=== PATIENT | male | born 1945 | race Caucasian/White ===

== ENCOUNTER → 2019-02-21 14:00 | Outpatient (BNVA) | payer MEDICARE, MEDICAID, SELFPAY | PROVIDERS: Family Provider Family Medicine; PCP Family Medicine; Visit Provider Nurse Practitioner | DX: F25.0 Schizoaffective disorder, bipolar type (principal); G24.01 Drug induced subacute dyskinesia | CPT/HCPCS: 99213 ==

== ENCOUNTER 2019-03-12 13:34 | Outpatient (CLI) | payer MEDICARE, MEDICAID, SELFPAY ==
--- NOTE | 2019-03-12 | XR_ITS ---
WS: [id number] LUMBAR SPINE: 3 VIEWS TECHNIQUE: AP, lateral and L5-S1 spot. HISTORY: BACK PAIN CHRONIC COMPARISON: None available. Lumbar vertebra are normally aligned. Moderate disc space narrowing at L5-S1. No fractures. Multilevel mild facet joint arthritis. SI joints are symmetric bilaterally. No soft tissue abnormalities. Mild atherosclerosis aorta. XR/XR lumbar spine min 4V [id number] IMPRESSION: 1. Multilevel mild lumbar spondylosis. 2. No fracture.
== END 2019-03-12 13:35 | disposition home or self-care (01) ==
LOC: RADOUTREAD 15:34
PROVIDERS: Family Provider Family Medicine; PCP Family Medicine; Visit Provider Family Medicine
DX: Z76.89 Persons encountering health services in other specified circumstances (principal)

== ENCOUNTER → 2019-05-15 07:30 | Outpatient (BNVA) | payer MEDICARE, MEDICAID, SELFPAY | PROVIDERS: Family Provider Family Medicine; PCP Family Medicine; Visit Provider Nurse Practitioner | DX: G24.01 Drug induced subacute dyskinesia (principal); F25.0 Schizoaffective disorder, bipolar type | CPT/HCPCS: 99213 ==

== ENCOUNTER 2019-07-29 15:03 | Emergency (ER) | payer MEDICARE, MEDICAID, SELFPAY ==
[2019-07-29 15:09] VITALS: BP 154/81; PULSE 80; RESP 20; TEMP 37.7; O2SAT 93; BMI 31.0
--- NOTE | 2019-07-29 15:33 | XR_ITS ---
WS: [id number] XR chest 1V portable [id number] REASON FOR EXAM: dyspnea/cough FINDINGS: Comparisons were made to September 01, 2014. Low-grade plate atelectasis the basilar portion of both lower lungs. There is degenerate spurring along the apophyseal joints. The T7 vertebra suggests compression deform ity the ages undetermined. The peripheral lung show no definite pneumonia or congestion pulmonary edema. XR/XR chest 1V portable [id number] IMPRESSION: Plate atelectasis the basilar portions of both lower lungs Compression deformity of T7 the ages undetermined.
--- NOTE | 2019-07-29 15:33 | ECG_ITS ---
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 Measurements Intervals [place] Rate: 83 P: 32 [place]: 187 QRS: -7 QRSD: 99 T: 17 QT: 401 QTc: 472 Interpretive Statements SINUS RHYTHM WITH OCCASIONAL SUPRAVENTRICULAR PREMATURE COMPLEXES Compared to ECG 09/01/2014 17:54:23 No significant changes Electronically Signed On 07-30-2019 13:41:57 CDT by Lety García M.D. [id number]
[2019-07-29 15:57] LABS: Basophils % 0.2 %; Eosinophils # 0.1 10^3/uL (0.0-0.8); Eosinophils % 1.2 %; Hematocrit 43.6 % (42.0-52.0); Hemoglobin 15.1 g/dL (11.7-16.6); Lymphocytes # 1.2 10^3/uL (0.8-4.8); Lymphocytes % 10.1 %; Mean Corpuscular HGB Conc 34.6 g/dL (30.0-36.0); Mean Corpuscular Volume 89.5 fL (80-94); Mean Platelet Volume 10.3 fL (7.4-10.4); Monocytes # 0.9 10^3/uL (0.2-0.9); Monocytes % 7.2 %; Neutrophils # 9.7 10^3/uL (1.8-7.7); Nucleated Red Blood Cells % 0 %; Platelet Count 135 10^3/cmm (130-400); Red Blood Count 4.87 10^6/uL (4.1-5.3); Red Cell Distribution Width 12.1 % (12.1-15.1)
[2019-07-29 16:13] LABS: Alanine Aminotransferase 47 U/L (0-41); Albumin Level 4.6 g/dL (3.5-5.2); Alkaline Phosphatase 69 IU/L (40-130); Anion Gap 18.8 (5-19); Aspartate Amino Transferase 36 U/L (0-40); Blood Urea Nitrogen 17 mg/dL (8-23); Calcium 9.6 mg/dL (8.5-10.5); Carbon Dioxide 22 mmol/L (22-29); Chloride 102 mmol/L (98-107); Creatine Phosphokinase 120 U/L (39-308); Globulin 2.4 g/dL (1.3-4.6); Glucose 147 mg/dL (65-115); Lactate (Lactic Acid level) 1.1 mmol/L (0.5-2.2); Osmolality Calculated 287 mOsm/kg (285-295); Potassium 3.8 mmol/L (3.5-5.1); Sodium 139 mmol/L (136-145); Total Bilirubin 0.5 mg/dL (0.15-1.2)
--- NOTE | 2019-07-29 16:26 | W.ED.GENADLT ---
Documented by User: David Duvall DO 08/02/19 15:22 HPI - General Adult General: Chief complaint: General Medical Stated complaint: Fall Time Seen by Provider: 07/29/19 15:20 History of Present Illness: HPI narrative: 73-year-old male comes in complaining of heatstroke he was walking around outside get lightheaded and dizzy somewhat nauseous he denied vomiting. He does not know really how long he was outside. He was awake and alert the whole time. He is extremely fatigued when he seen in the emergency room today denies any chest pain denies any recent upper respiratory illness denies any GI or symptoms. Onset (ago): minute(s) Relieving factors: none Exacerbating factors: none Associated symptoms: Reports diaphoresis, headache(s), malaise, nausea and weakness; Deny chest pain, confusion, cough, decreased appetite, dyspnea, fevers/chills, rash, palpitations, seizures, short of breath, syncope or vomiting Review of Systems Const: Reports: malaise and diaphoresis ENMT: Denies: throat pain, ear or mastoid pain, nasal discharge or nasal congestion Card: Denies: chest pain, palpitations or syncope Resp: Denies: dyspnea GI: Reports: nausea; Denies: vomiting : Denies: flank pain, dysuria, urinary frequency or urinary urgency Skin/Breast: Denies: rash or pruritus Neuro: Reports: headache(s); Denies: confusion [facility] ED PFSH: Medical History Diabetes mellitus Dyskinesia, tardive Hypertension Schizoaffective disorder, bipolar type Social History Smoking and tobacco status: former smoker Physical Exam Const: COMMON NORMALS: no acute distress GENERAL APPEARANCE: cooperative and comfortable ORIENTATION/CONSCIOUSNESS: Yes awake, Yes oriented to person, Yes oriented to place and Yes oriented to time HENMT: COMMON NORMALS: normocephalic, atraumatic, hearing grossly normal bilaterally, external ears normal, EAC's normal, TM's normal bilaterally, Normal nasal mucous membranes and turbinates present, moist oral mucous membranes and oropharynx normal HEAD & SCALP: normocephalic and atraumatic NOSE: Normal nasal mucous membranes and turbinates present EXTERNAL EAR: Yes external ears normal EXTERNAL AUDITORY CANAL: EAC's normal TYMPANIC MEMBRANE: TM's normal bilaterally Eye: COMMON NORMALS: Equal, round and reactive pupils present, EOMs intact bilaterally, conjunctivae normal and no scleral icterus CONJUNCTIVA: Yes conjunctivae normal PUPIL: Yes Equal, round and reactive pupils present Neck/C-Spine: COMMON NORMALS: full ROM, no lymphadenopathy, supple and no JVD Lymph: LYMPHATIC: no lymphadenopathy noted and no lymphedema noted Resp: COMMON NORMALS: normal respiratory effort, No retractions, No use of accessory muscles and clear to auscultation bilaterally AUSCULTATION: clear to auscultation bilaterally Cardio: COMMON NORMALS: no JVD, regular rate, regular rhythm and No murmurs present (Cardio) RATE: regular rate RHYTHM: regular rhythm GI: COMMON NORMALS: Soft to palpation and No hepatosplenomegaly present AUSCULTATION: Yes normoactive bowel sounds PALPATION: Yes Soft to palpation, No Tenderness to palpation present (GI), No Guarding due to palpation present (GI) and Yes No hepatosplenomegaly present Extremity: COMMON NORMALS: normal to inspection, capillary refill normal, no clubbing, cyanosis or edema, no calf tenderness and no pedal edema Neuro: SENSORIUM/ORIENTATION: Yes oriented to person, Yes oriented to place and Yes oriented to time Skin: COMMON NORMALS: no rashes or lesions noted GENERAL SKIN EXAM: no rashes or lesions noted Course Vital Signs: Vital signs: Vital Signs Temperature 99.8 F H 07/29/19 15:09 Pulse Rate 84 07/29/19 21:21 Respiratory Rate 18 07/29/19 21:21 Blood Pressure 148/74 07/29/19 21:21 Pulse Oximetry 97 07/29/19 19:48 MDM - General Adult MDM Narrative: Medical decision making narrative: Transferred to Dr. Rizvi at change of shift. See his notes for definitive diagnosis and disposition. Lab Data: Labs: Lab Results 07/29/19 07/29/19 07/29/19 Range/Units 15:48 15:48 15:48 WBC 12.0 H (4.0-10.0) 10^3/ uL RBC 4.87 (4.1-5.3) 10^6/u L Hgb 15.1 (11.7-16.6) g/dL Hct 43.6 (42.0-52.0) % MCV 89.5 (80-94) fL MCH 31.0 (28.0-34.0) pg MCHC 34.6 (30.0-36.0) g/dL RDW 12.1 (12.1-15.1) % Plt Count 135 (130-400) 10^3/c mm MPV 10.3 (7.4-10.4) fL Neut % (Auto) 81.0 % Lymph % (Auto) 10.1 % [place] % (Auto) 7.2 % Eos % (Auto) 1.2 % Baso % (Auto) 0.2 % Neut # (Auto) 9.7 H (1.8-7.7) 10^3/u L Lymph # (Auto) 1.2 (0.8-4.8) 10^3/u L [place] # (Auto) 0.9 (0.2-0.9) 10^3/u L Eos # (Auto) 0.1 (0.0-0.8) 10^3/u L Baso # (Auto) 0.0 (0.0-0.1) 10^3/u L Nucleated RBC % (a uto) 0 % Nucleated RBCs # 0.0 /100WBC Sodium 139 (136-145) mmol/L Potassium 3.8 (3.5-5.1) mmol/L Chloride 102 (98-107) mmol/L Carbon Dioxide 22 (22-29) mmol/L Anion Gap 18.8 (5-19) BUN 17 (8-23) mg/dL Creatinine 0.8 (0.7-1.2) mg/dL Glucose 147 H (65-115) mg/dL Calculated Osmolal ity 287 (285-295) mOsm/k g Lactate 1.1 (0.5-2.2) mmol/L Calcium 9.6 (8.5-10.5) mg/dL Total Bilirubin 0.5 (0.15-1.2) mg/dL AST 36 (0-40) U/L ALT 47 H (0-41) U/L Alkaline Phosphata se 69 (40-130) IU/L Creatine Kinase 120 (39-308) U/L Troponin T Baselin e (0-15) ng/L Troponin T 120 Min [place] (0-15) ng/L Delta Troponin T (0-10) ABS# Total Protein 7.0 (6.6-8.7) g/dL Albumin 4.6 (3.5-5.2) g/dL Globulin 2.4 (1.3-4.6) g/dL Urine Color (Yellow) Urine Appearance (CLEAR) Urine pH (5-7) Ur Specific Gravit y (1.005-1.030) Urine Protein (Negative) Urine Glucose (UA) (Normal) Urine Ketones (Negative) Urine Blood (Negative) Urine Nitrate (Negative) Urine Bilirubin (NEGATIVE) Urine Urobilinogen (Negative) mg/dL Ur Leukocyte Neva ase (Negative) Urine RBC (0-2) /hpf Urine WBC (0-5) /hpf Ur Squamous Epith Cells (0-5) Calcium Oxalate Cr ystal /hpf Urine Bacteria (NONE) Urine Mucus 07/29/19 07/29/19 07/29/19 Range/Units 16:40 17:30 18:36 WBC (4.0-10.0) 10^3/ uL RBC (4.1-5.3) 10^6/u L Hgb (11.7-16.6) g/dL Hct (42.0-52.0) % MCV (80-94) fL MCH (28.0-34.0) pg MCHC (30.0-36.0) g/dL RDW (12.1-15.1) % Plt Count (130-400) 10^3/c mm MPV (7.4-10.4) fL Neut % (Auto) % Lymph % (Auto) % [place] % (Auto) % Eos % (Auto) % Baso % (Auto) % Neut # (Auto) (1.8-7.7) 10^3/u L Lymph # (Auto) (0.8-4.8) 10^3/u L [place] # (Auto) (0.2-0.9) 10^3/u L Eos # (Auto) (0.0-0.8) 10^3/u L Baso # (Auto) (0.0-0.1) 10^3/u L Nucleated RBC % (a uto) % Nucleated RBCs # /100WBC Sodium (136-145) mmol/L Potassium (3.5-5.1) mmol/L Chloride (98-107) mmol/L Carbon Dioxide (22-29) mmol/L Anion Gap (5-19) BUN (8-23) mg/dL Creatinine (0.7-1.2) mg/dL Glucose (65-115) mg/dL Calculated Osmolal ity (285-295) mOsm/k g Lactate (0.5-2.2) mmol/L Calcium (8.5-10.5) mg/dL Total Bilirubin (0.15-1.2) mg/dL AST (0-40) U/L ALT (0-41) U/L Alkaline Phosphata se (40-130) IU/L Creatine Kinase (39-308) U/L Troponin T Baselin e 9 (0-15) ng/L Troponin T 120 Min [place] 7.38 (0-15) ng/L Delta Troponin T -1.62 L (0-10) ABS# Total Protein (6.6-8.7) g/dL Albumin (3.5-5.2) g/dL Globulin (1.3-4.6) g/dL Urine Color Yellow (Yellow) Urine Appearance Clear (CLEAR) Urine pH 5 (5-7) Ur Specific Gravit y 1.025 (1.005-1.030) Urine Protein 2+ H (Negative) Urine Glucose (UA) Norm (Normal) Urine Ketones 1+ H (Negative) Urine Blood Neg (Negative) Urine Nitrate Negative (Negative) Urine Bilirubin Neg (NEGATIVE) Urine Urobilinogen 1 H (Negative) mg/dL Ur Leukocyte Neva ase Negative (Negative) Urine RBC None (0-2) /hpf Urine WBC None (0-5) /hpf Ur Squamous Epith Cells 0-4 H (0-5) Calcium Oxalate Cr ystal 40-55 H /hpf Urine Bacteria Trace (NONE) Urine Mucus 3+ EKG Data^: EKG 1: Computer generated interpretation: Chest X-Ray 07/29/19 15:33 IMPRESSION: Plate atelectasis the basilar portions of both lower lungs Compression deformity of T7 the ages undetermined. EKG 2: Computer generated interpretation: Chest X-Ray 07/29/19 15:33 IMPRESSION: Plate atelectasis the basilar portions of both lower lungs Compression deformity of T7 the ages undetermined. Discharge Plan Discharge Patient Disposition: Home, Self-Care Clinical Impression: Syncope Qualifiers: Syncope type: unspecified Qualified Code(s): R55 - Syncope and collapse Heat exhaustion Qualifiers: Encounter type: initial encounter Qualified Code(s): T67.5XXA - Heat exhaustion, unspecified, initial encounter Condition: Stable Prescriptions: No Action buspirone 15 mg tablet 15 mg PO TID Qty: 90 RF: 2 benztropine 1 mg tablet 1 mg PO BID Qty: 60 RF: 2 sertraline [Zoloft] 100 mg tablet 200 mg PO Q24H Qty: 60 RF: 2 fluticasone propionate [Flonase Allergy Relief] 50 mcg/actuation spray,suspension 1 spray INTRANASAL DAILY RF: 0 ferrous gluconate 324 mg (37.5 mg iron) tablet 324 mg PO DAILY RF: 0 omeprazole 40 mg capsule,delayed release(DR/EC) 40 mg PO DAILY RF: 0 amlodipine 5 mg tablet 5 mg PO DAILY RF: 0 polyethylene glycol 3350 [Miralax] 17 gram/dose powder 17 gm PO DAILY RF: 0 irbesartan 300 mg tablet 300 mg PO DAILY RF: 0 Januvia 100 mg tablet 100 mg PO DAILY RF: 0 metformin 500 mg tablet extended release 24 hr 500 mg PO BID RF: 0 carvedilol [Coreg] 25 mg tablet 25 mg PO BID RF: 0 celecoxib [Celebrex] 200 mg capsule 200 mg PO BID RF: 0 tramadol [Ultram] 50 mg tablet 50 mg PO TID RF: 0 rosuvastatin [Crestor] 40 mg tablet 40 mg PO BEDTIME RF: 0 acetaminophen [Tylenol Extra Strength] 500 mg tablet 1,000 mg PO Q6H PRN (Reason: Pain) RF: 0 magnesium hydroxide [Milk of Magnesia] 400 mg/5 mL suspension 30 ml PO PRN PRN (Reason: Constipation) RF: 0 Aricept 10 mg tablet 10 mg PO BEDTIME RF: 0 trazodone 100 mg tablet 100 mg PO BEDTIME RF: 0 olanzapine 15 mg tablet 15 mg PO BEDTIME RF: 0 Discharge Orders: Discharge Order (Routine); Ordered 07/29/19 Ordered By: Ema Reilly Referrals: Israel Rayo MD [Primary Care Provider] - Discharge Diet: Advance as tolerated Discharge Activity: Increase activity as tolerated Patient Instructions: Heat Exhaustion (ED), Syncope (ED) Activity Restrictions/Additional Instructions: Please return to the ER immediately for any of the signs or symptoms listed on your discharge instruction sheets, worsening/changing of your symptoms, you are not getting better as quickly as expected, or for ANY other cause or concerns. Discharge Date/Time: 07/29/19 21:23 Sign Out Sign Out Data: Patient Sign Out occurred on 07/29/19 at 18:29. Patient's care was discussed, and care was transferred from to Ema Reilly. Coding Level of Care Code ED Supervisor Transferring And Boxing for Chg Fwd Exam Comprehensive Documented by User: Ema Reilly 07/30/19 19:02 HPI - General Adult General: Chief complaint: General Medical Stated complaint: Fall Time Seen by Provider: 07/29/19 15:20 PFSH ED PFSH: Medical History Diabetes mellitus Dyskinesia, tardive Hypertension Schizoaffective disorder, bipolar type Social History Smoking and tobacco status: former smoker Course Vital Signs: Vital signs: Vital Signs Temperature 99.8 F H 07/29/19 15:09 Pulse Rate 84 07/29/19 21:21 Respiratory Rate 18 07/29/19 21:21 Blood Pressure 148/74 07/29/19 21:21 Pulse Oximetry 97 07/29/19 19:48 MDM - General Adult MDM Narrative: Medical decision making narrative: 1800 -Case inherited by me Dr. Reilly, at change of shift from Dr. Duvall. Please see his notes for his history, physical exam and medical decision-making notes. Patient states that he normally walks 4 miles in town daily to get exercise but since the COVID pandemic he is not done so for a month and a half. Today he went out and tried to do that and believes he has become overheated. Patient said he felt very nauseated and weak but denies any chest pain or shortness of breath. He did lower himself to the ground and have a syncopal spell but does not believe he was there for more than a few seconds. Patient feels generally weak but denies chest pain or shortness of breath. He denies any leg pain or swelling. He denies any headache or visual changes. Since his time here in the ER he is feeling better and denies any current symptoms other than just fatigue. 2042 -the patient is feeling tremendously better and wants to go home. He denies any chest pain, shortness of breath, nauseousness, fatigue or otherwise. He states he does have some of his chronic low back pain which she normally takes tramadol for and he has not taken that today. I will give him that. He is adamant this is a old finding and problem he does not have any new pain or injury to the area. Patient denies any abdominal pain. He is asking for something to eat and to go home. Patient refuses any further evaluation and care and like to be discharged. Patient's symptoms of syncope do tend to relate heat exhaustion. He has been deconditioned from walking for the month and a half of quarantine to the COVID virus. Patient had no chest pain or palpitations prior to having his syncopal spell. Now that he is cooler he feels much better. On his EKG I have looked in specifically see no evidence of Flxti-Gidkppmcq-Eruuq syndrome, obstructed AV pathway, bifascicular block, Brugada syndrome, left ventricular hypertrophy to suggest aortic stenosis or hypertrophic obstructive cardiomyopathy, epsilon wave, or long or short QT syndrome. The patient agrees to return should symptoms change or worsen but at this time he is ready for discharge. Lab Data: Attestation: I reviewed the patient's lab results. Labs: Lab Results 07/29/19 07/29/19 07/29/19 Range/Units 15:48 15:48 15:48 WBC 12.0 H (4.0-10.0) 10^3/ uL RBC 4.87 (4.1-5.3) 10^6/u L Hgb 15.1 (11.7-16.6) g/dL Hct 43.6 (42.0-52.0) % MCV 89.5 (80-94) fL MCH 31.0 (28.0-34.0) pg MCHC 34.6 (30.0-36.0) g/dL RDW 12.1 (12.1-15.1) % Plt Count 135 (130-400) 10^3/c mm MPV 10.3 (7.4-10.4) fL Neut % (Auto) 81.0 % Lymph % (Auto) 10.1 % [place] % (Auto) 7.2 % Eos % (Auto) 1.2 % Baso % (Auto) 0.2 % Neut # (Auto) 9.7 H (1.8-7.7) 10^3/u L Lymph # (Auto) 1.2 (0.8-4.8) 10^3/u L [place] # (Auto) 0.9 (0.2-0.9) 10^3/u L Eos # (Auto) 0.1 (0.0-0.8) 10^3/u L Baso # (Auto) 0.0 (0.0-0.1) 10^3/u L Nucleated RBC % (a uto) 0 % Nucleated RBCs # 0.0 /100WBC Sodium 139 (136-145) mmol/L Potassium 3.8 (3.5-5.1) mmol/L Chloride 102 (98-107) mmol/L Carbon Dioxide 22 (22-29) mmol/L Anion Gap 18.8 (5-19) BUN 17 (8-23) mg/dL Creatinine 0.8 (0.7-1.2) mg/dL Glucose 147 H (65-115) mg/dL Calculated Osmolal ity 287 (285-295) mOsm/k g Lactate 1.1 (0.5-2.2) mmol/L Calcium 9.6 (8.5-10.5) mg/dL Total Bilirubin 0.5 (0.15-1.2) mg/dL AST 36 (0-40) U/L ALT 47 H (0-41) U/L Alkaline Phosphata se 69 (40-130) IU/L Creatine Kinase 120 (39-308) U/L Troponin T Baselin e (0-15) ng/L Troponin T 120 Min [place] (0-15) ng/L Delta Troponin T (0-10) ABS# Total Protein 7.0 (6.6-8.7) g/dL Albumin 4.6 (3.5-5.2) g/dL Globulin 2.4 (1.3-4.6) g/dL Urine Color (Yellow) Urine Appearance (CLEAR) Urine pH (5-7) Ur Specific Gravit y (1.005-1.030) Urine Protein (Negative) Urine Glucose (UA) (Normal) Urine Ketones (Negative) Urine Blood (Negative) Urine Nitrate (Negative) Urine Bilirubin (NEGATIVE) Urine Urobilinogen (Negative) mg/dL Ur Leukocyte Neva ase (Negative) Urine RBC (0-2) /hpf Urine WBC (0-5) /hpf Ur Squamous Epith Cells (0-5) Calcium Oxalate Cr ystal /hpf Urine Bacteria (NONE) Urine Mucus 07/29/19 07/29/19 07/29/19 Range/Units 16:40 17:30 18:36 WBC (4.0-10.0) 10^3/ uL RBC (4.1-5.3) 10^6/u L Hgb (11.7-16.6) g/dL Hct (42.0-52.0) % MCV (80-94) fL MCH (28.0-34.0) pg MCHC (30.0-36.0) g/dL RDW (12.1-15.1) % Plt Count (130-400) 10^3/c mm MPV (7.4-10.4) fL Neut % (Auto) % Lymph % (Auto) % [place] % (Auto) % Eos % (Auto) % Baso % (Auto) % Neut # (Auto) (1.8-7.7) 10^3/u L Lymph # (Auto) (0.8-4.8) 10^3/u L [place] # (Auto) (0.2-0.9) 10^3/u L Eos # (Auto) (0.0-0.8) 10^3/u L Baso # (Auto) (0.0-0.1) 10^3/u L Nucleated RBC % (a uto) % Nucleated RBCs # /100WBC Sodium (136-145) mmol/L Potassium (3.5-5.1) mmol/L Chloride (98-107) mmol/L Carbon Dioxide (22-29) mmol/L Anion Gap (5-19) BUN (8-23) mg/dL Creatinine (0.7-1.2) mg/dL Glucose (65-115) mg/dL Calculated Osmolal ity (285-295) mOsm/k g Lactate (0.5-2.2) mmol/L Calcium (8.5-10.5) mg/dL Total Bilirubin (0.15-1.2) mg/dL AST (0-40) U/L ALT (0-41) U/L Alkaline Phosphata se (40-130) IU/L Creatine Kinase (39-308) U/L Troponin T Baselin e 9 (0-15) ng/L Troponin T 120 Min [place] 7.38 (0-15) ng/L Delta Troponin T -1.62 L (0-10) ABS# Total Protein (6.6-8.7) g/dL Albumin (3.5-5.2) g/dL Globulin (1.3-4.6) g/dL Urine Color Yellow (Yellow) Urine Appearance Clear (CLEAR) Urine pH 5 (5-7) Ur Specific Gravit y 1.025 (1.005-1.030) Urine Protein 2+ H (Negative) Urine Glucose (UA) Norm (Normal) Urine Ketones 1+ H (Negative) Urine Blood Neg (Negative) Urine Nitrate Negative (Negative) Urine Bilirubin Neg (NEGATIVE) Urine Urobilinogen 1 H (Negative) mg/dL Ur Leukocyte Neva ase Negative (Negative) Urine RBC None (0-2) /hpf Urine WBC None (0-5) /hpf Ur Squamous Epith Cells 0-4 H (0-5) Calcium Oxalate Cr ystal 40-55 H /hpf Urine Bacteria Trace (NONE) Urine Mucus 3+ Imaging Data^: CXR: My impression: No acute cardiopulmonary findings, probable atelectasis in the bases. EKG Data^: EKG 1: Attestation: I personally reviewed and interpreted this EKG as follows: EKG interpretation date: 07/29/19 EKG interpretation time: 16:34 Interpretation: Normal sinus rhythm at 83 beats a minute, normal axis, no acute ST-T wave changes. Computer generated interpretation: Chest X-Ray 07/29/19 15:33 IMPRESSION: Plate atelectasis the basilar portions of both lower lungs Compression deformity of T7 the ages undetermined. EKG 2: Attestation: I personally reviewed and interpreted this EKG as follows: EKG interpretation date: 07/29/19 EKG interpretation time: 18:50 Interpretation: Normal sinus rhythm at 85 beats a minute, normal axis, no blocks, normal intervals, no acute ST or T wave changes. Computer generated interpretation: Chest X-Ray 07/29/19 15:33
[2019-07-29] MEDS: sodium chlor 0.9% + KCl 20 mEq 20 MEQ/1,000 ML BAG 125 MEQ IV (16:54)
[2019-07-29 18:16] LABS: Add Urine Microscopic? YES; Bacteria Urine TRACE; Bilirubin Urine Neg (NEGATIVE); Blood Urine Neg (Negative); Glucose Urine UA Norm (Normal); Ketones Urine 1+ (Negative); Leukocyte Esterase Urine Negative (Negative); Nitrate Urine Negative (Negative); Protein Urine 2+ (Negative); Specific Gravity, Urine 1.025 (1.005-1.030); Squamous Epithelial Cell Urine 0-4 (0-5); Urine Appearance Clear (CLEAR); Urine Color Yellow (Yellow); Urobilinogen Urine 1 mg/dL (Negative); pH Urine 5 (5-7)
[2019-07-29 18:16] LABS: Troponin(5th) Baseline 9 ng/L (0-15)
[2019-07-29 18:17] LABS: Add Urine Culture? No; Calcium Oxalate Crystals Urine 40-55 /hpf; Mucus Urine 3+
[2019-07-29 18:47] VITALS: BP 135/79; PULSE 86; RESP 16; O2SAT 98
[2019-07-29 19:03] LABS: Troponin 5 2HR 7.38 ng/L (0-15); Troponin 5 2HR Delta -1.62 ABS# (0-10)
[2019-07-29 19:48] VITALS: BP 160/91; PULSE 97; RESP 18; O2SAT 97
[2019-07-29] MEDS: lactated ringers 1,000 ML 999 ML IV ×2 (19:50→20:27)
--- NOTE | 2019-07-29 19:59 | ECG_ITS ---
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 Measurements Intervals [place] Rate: 85 P: 20 [place]: 182 QRS: 5 QRSD: 105 T: 19 QT: 401 QTc: 477 Interpretive Statements SINUS RHYTHM Compared to ECG 07/29/2019 16:34:28 No significant changes Electronically Signed On 07-30-2019 14:14:43 CDT by Lety García M.D. [id number]
[2019-07-29 21:15] VITALS: BP 143/70; PULSE 84; RESP 16
[2019-07-29] MEDS: TRAMadol 50 mg Tablet PO (21:17)
[2019-07-29 21:21] VITALS: BP 148/74; PULSE 84; RESP 18
== END 2019-07-29 21:23 | disposition home or self-care (01) ==
PROVIDERS: Family Medicine; Emergency Provider Emergency Medicine; PCP Family Medicine
DX: R55 Syncope and collapse (principal); T67.5XXA Heat exhaustion, unspecified, initial encounter; X30.XXXA Exposure to excessive natural heat, initial encounter; E11.9 Type 2 diabetes mellitus without complications; I10 Essential (primary) hypertension; Z87.891 Personal history of nicotine dependence; Z79.84 Long term (current) use of oral hypoglycemic drugs
CPT/HCPCS: 12345; 36415; 71045; 80053; 81001; 82550; 83605; 84484; 85025; 93005; 96360; 96365; 96366; 96367; 96375; 99283; 99284

== ENCOUNTER → 2019-09-09 07:43 | Outpatient (BNVA) | payer MEDICARE, MEDICAID, SELFPAY | PROVIDERS: Family Provider Family Medicine; PCP Family Medicine; Visit Provider Nurse Practitioner | DX: F25.0 Schizoaffective disorder, bipolar type (principal); G24.01 Drug induced subacute dyskinesia | CPT/HCPCS: 99213 ==

== ENCOUNTER → 2019-12-03 07:33 | Outpatient (BNVA) | payer MEDICARE, MEDICAID, SELFPAY | PROVIDERS: Family Provider Family Medicine; PCP Family Medicine; Visit Provider Nurse Practitioner | DX: F25.0 Schizoaffective disorder, bipolar type (principal) | CPT/HCPCS: 99213 ==

== ENCOUNTER → 2021-06-01 09:22 | Outpatient (BNVA) | payer MEDICARE, MEDICAID, SELFPAY | PROVIDERS: PCP Family Medicine; Visit Provider Nurse Practitioner | DX: F25.0 Schizoaffective disorder, bipolar type (principal); G24.01 Drug induced subacute dyskinesia; F17.220 Nicotine dependence, chewing tobacco, uncomplicated; F10.21 Alcohol dependence, in remission | CPT/HCPCS: 90792 ==

== ENCOUNTER 2021-11-08 07:15 | Outpatient (CLI) | payer MEDICARE, MEDICAID, SELFPAY ==
--- NOTE | 2021-11-08 13:19 | PFTS_ITS ---
Date of Study:11/08/21 Date of Dictation: MECHANICS: Forced vital capacity (FVC) is normal. Forced expiratory volume in one second (FEV1) is normal. FEV1/FVC is normal. FLOW VOLUME LOOP: Normal. LUNG VOLUMES: Total lung capacity (TLC) is normal. Residual volume (RV) is normal. DIFFUSING CAPACITY FOR CARBON MONOXIDE: Normal. INTERPRETATION: The pulmonary function tests are normal. No postbronchodilator spirometry was performed. MTDD
== END 2021-11-08 07:16 | disposition home or self-care (01) ==
LOC: RT 07:19
PROVIDERS: PCP Family Medicine; Visit Provider Family Medicine
DX: Z87.891 Personal history of nicotine dependence (principal)
CPT/HCPCS: 94010; 94726; 94729

== ENCOUNTER 2022-06-13 10:19 | Emergency (ER) | payer MEDICARE, MEDICAID, SELFPAY ==
[2022-06-13] VITALS (10 sets, daily range): BP systolic 116–147; BP diastolic 65–77; PULSE 58–73; RESP 14–19; TEMP 36.7; O2SAT 91–94; BMI 27.3
--- NOTE | 2022-06-13 | CT_ITS ---
NOTE: Original Signature date and time was: 06/13/22 @ [address] HEAD NONCONTRAST HISTORY: fall TECHNIQUE: Contiguous axial imaging performed through the brain in 2.5 mm imaging. Bone and soft tissue windows. Sagittal and coronal reformats reviewed. All CT scans at [facility] use at least one of these dose optimization techniques: automated exposure control; mA and/or kV adjustment per patient size (includes targeted exams where dose is matched to clinical indication); or iterative reconstruction. DLP: 1485.46 mGy.cm COMPARISON: None available. Small acute RIGHT frontotemporal subdural hematoma with a maximum diameter 2 to 3 mm. No significant mass effect upon the brain. No midline shift. There is an additional component of the subdural hematoma extending into the anterior RIGHT middle cranial fossa. This component of the subdural is slightly greater measuring 3.4 mm. Mild atrophy is symmetric bilaterally. Mild small vessel ischemic disease. Ventricles: Normal size with no hydrocephalus. No intraventricular blood. No inferior displacement of cerebellar tonsils. Paranasal sinuses: As visualized are clear. Mastoid air cells: Well pneumatized. Calvarium and scalp: No skull fracture. Acute scalp hematoma centered over the RIGHT temporal region. IMPRESSION: 1. Acute RIGHT frontotemporal subdural hematoma. Largest component of the subdural hematoma is 3.4 mm in the anterior RIGHT middle cranial fossa with a smaller component RIGHT frontotemporal region. 2. No fracture. 3. Mild atrophy and small vessel ischemic disease. 4. No midline shift. 5. Scalp hematoma RIGHT temporal. Notified David Duvall DO at 06/13/2022 11:39 AM. YA
--- NOTE | 2022-06-13 10:22 | XRR_ITS ---
PROCEDURE INFORMATION: Exam: XR Right Hip Exam date and time: 06/13/2022 10:39 AM Age: 76 years old Clinical indication: Injury or trauma; Fall; Blunt trauma (contusions or hematomas); Right; Hip; Additional info: Fall/pain TECHNIQUE: Imaging protocol: Radiologic exam of the right hip. Views: 1 view hip with pelvis when performed. Total images: 1 COMPARISON: CR XR lumbar spine min 4V [id number] 03/12/2019 1:34 PM FINDINGS: Bones/joints: Focal nodular sclerotic density projecting in the subtrochanteric femur most likely represents a bone island. Minimally displaced right mid cervical femoral neck fracture. Soft tissues: Unremarkable. XR/XR hip RT 2-3V wo/w pel* [id number] IMPRESSION: Minimally displaced right mid cervical femoral neck fracture.
--- NOTE | 2022-06-13 10:51 | W.ED.FALL ---
HPI - Fall General: Chief Complaint: Fall Stated Complaint: FALL/ LAC TO HEAD/ R HIP PAIN Time Seen by Provider: 06/13/22 10:21 Source: patient Mode of arrival: EMS History of Present Illness: 76-year-old male presents to the emergency room with complaints of right hip pain after falling at home he tripped and fell landed on his right hip hit the back of his head. He has an abrasion on the back of his head he did have a brief loss of consciousness he is not on any anticoagulants. No vomiting or diarrhea when I seen the patient he is awake alert and able to review call incidents of the fall. Denies any dysuria urgency or frequency or diarrhea. MD complaint: fall Onset (ago): minute(s) Fall from: standing Place fall occurred: home Loss of consciousness: Yes Prolonged down time: no Context: tripped/slipped Location of injury: head and other (Right hip) Associated symptoms-after fall: Reports difficulty walking; Denies abdominal pain, chest pain, confusion, headache(s), hematuria, lightheadedness, neck pain, numbness, short of breath, vertigo or weakness Review of Systems Const: Denies: fever(s), chills, body aches, change in appetite, fatigue or malaise Card: Denies: chest pain or lightheadedness Resp: Denies: dyspnea, productive cough or non-productive cough GI: Denies: abdominal pain : Denies: hematuria Musc: Denies: neck pain Skin/Breast: Denies: rash or pruritus Neuro: Reports: difficulty walking; Denies: headache(s), vertigo or confusion PFS ED PFSH: Medical History Alcohol dependence, in remission Diabetes mellitus Dyskinesia, tardive Hypertension Nicotine dependence, chewing tobacco, uncomplicated Psychiatric care Schizoaffective disorder, bipolar type Social History Smoking and tobacco status: current every day smoker cigars and smokeless tobacco Smokeless tobacco user: chewing tobacco Physical Exam Const: GENERAL APPEARANCE: cooperative ORIENTATION/CONSCIOUSNESS: Yes awake, Yes oriented to person, Yes oriented to place and Yes oriented to time HENMT: COMMON NORMALS: normocephalic and hearing grossly normal bilaterally HEAD & SCALP: normocephalic OTHER: Large abrasion right posterior occiput no active bleeding not really amenable to sutures at this point. Eye: COMMON NORMALS: Equal, round and reactive pupils present, EOMs intact bilaterally and conjunctivae normal CONJUNCTIVA: Yes conjunctivae normal PUPIL: Yes Equal, round and reactive pupils present Neck/C-Spine: COMMON NORMALS: no lymphadenopathy Resp: COMMON NORMALS: normal respiratory effort, No retractions, No use of accessory muscles and clear to auscultation bilaterally AUSCULTATION: clear to auscultation bilaterally Cardio: COMMON NORMALS: regular rate, regular rhythm and No murmurs present (Cardio) RATE: regular rate RHYTHM: regular rhythm GI: COMMON NORMALS: Soft to palpation and No hepatosplenomegaly present AUSCULTATION: Yes normoactive bowel sounds PALPATION: Yes Soft to palpation, No Tenderness to palpation present (GI), No Guarding due to palpation present (GI) and Yes No hepatosplenomegaly present Extremity: OTHER: External rotation of the right hip x-ray shows a femoral neck fracture minimally displaced Neuro: SENSORIUM/ORIENTATION: Yes oriented to person, Yes oriented to place and Yes oriented to time Skin: COMMON NORMALS: no rashes or lesions noted GENERAL SKIN EXAM: no rashes or lesions noted Course Vital Signs: Vital signs: Vital Signs Temperature 98.1 F 06/13/22 10:27 Pulse Rate 62 06/13/22 14:15 Respiratory Rate 14 06/13/22 14:30 Blood Pressure 135/72 06/13/22 14:30 Pulse Oximetry 92 06/13/22 14:30 Oxygen Delivery Me thod Nasal Cannula 06/13/22 12:21 Oxygen Flow Rate 2 06/13/22 12:21 MDM - Fall Medical Decision Making Right femoral neck fracture minimal displacement and subdural hematoma. Patient will be transferred to [facility] he will be ER to ER. We do not have neurosurgical coverage at our facility. Medical Records I reviewed the patient's medical records. Lab Data I reviewed the patient's lab results. 06/13/22 11:12 06/13/22 11:12 Radiology Impressions Hip/Pelvis X-Ray 06/13/22 10:22 IMPRESSION: Minimally displaced right mid cervical femoral neck fracture. Chest X-Ray 06/13/22 10:55 IMPRESSION: No acute findings. Knee X-Ray 06/13/22 11:01 IMPRESSION: 1. No acute osseous pathology. 2. Small joint effusion. Cervical Spine CT 06/13/22 11:06 IMPRESSION: 1. No acute cervical spine fracture. 2. Multilevel facet joint arthropathy and foraminal stenosis. Notified David Duvall DO at 06/13/2022 11:43 AM. Laboratory Results WBC 7.9 10^3/uL (4.0-10.0) 06/13/22 11:12 RBC 4.71 10^6/uL (4.1-5.3) 06/13/22 11:12 Hgb 14.6 g/dL (11.7-16.6) 06/13/22 11:12 Hct 43.3 % (42.0-52.0) 06/13/22 11:12 MCV 91.9 fl (80-94) 06/13/22 11:12 MCH 31.0 pg (28.0-34.0) 06/13/22 11:12 MCHC 33.7 g/dL (30.0-36.0) 06/13/22 11:12 RDW 12.9 % (12.1-15.1) 06/13/22 11:12 Plt Count 126 10^3/cmm (130-400) L 06/13/22 11:12 MPV 9.8 fL (7.4-10.4) 06/13/22 11:12 Neut % (Auto) 77.0 % 06/13/22 11:12 Lymph % (Auto) 13.1 % 06/13/22 11:12 [place] % (Auto) 6.7 % 06/13/22 11:12 Eos % (Auto) 2.1 % 06/13/22 11:12 Baso % (Auto) 0.6 % 06/13/22 11:12 Neut # (Auto) 6.09 10^3/uL (1.8-7.7) 06/13/22 11:12 Lymph # (Auto) 1.0 10^3/uL (0.8-4.8) 06/13/22 11:12 [place] # (Auto) 0.5 10^3/uL (0.2-0.9) 06/13/22 11:12 Eos # (Auto) 0.2 10^3/uL (0.0-0.8) 06/13/22 11:12 Baso # (Auto) 0.1 10^3/uL (0.0-0.1) 06/13/22 11:12 Nucleated RBC % (auto) 0 % 06/13/22 11:12 Nucleated RBCs # 0.0 /100WBC 06/13/22 11:12 Sodium 140 mmol/L (136-145) 06/13/22 11:12 Potassium 3.8 mmol/L (3.5-5.1) 06/13/22 11:12 Chloride 105 mmol/L (98-107) 06/13/22 11:12 Carbon Dioxide 26 mmol/L (22-29) 06/13/22 11:12 Anion Gap 12.8 (5-19) 06/13/22 11:12 BUN 13 mg/dL (8-23) 06/13/22 11:12 Creatinine 0.8 mg/dL (0.7-1.2) 06/13/22 11:12 GFR Calculation Not Reportable 06/13/22 11:12 Glucose 123 mg/dL (65-115) H 06/13/22 11:12 Calculated Osmolality 291 mOsm/kg (285-295) 06/13/22 11:12 Calcium 9.1 mg/dL (8.5-10.5) 06/13/22 11:12 Total Bilirubin 0.2 mg/dL (0.15-1.2) 06/13/22 11:12 AST 19 U/L (0-40) 06/13/22 11:12 ALT 18 U/L (0-41) 06/13/22 11:12 Alkaline Phosphatase 66 U/L (40-130) 06/13/22 11:12 Total Protein 6.5 g/dL (6.6-8.7) L 06/13/22 11:12 Albumin 4.1 g/dL (3.5-5.2) 06/13/22 11:12 Globulin 2.4 g/dL (1.3-4.6) 06/13/22 11:12 Urine Color Yellow (Yellow) 06/13/22 12:13 Urine Appearance Clear (CLEAR) 06/13/22 12:13 Urine pH 5 (5-7) 06/13/22 12:13 Ur Specific [place] 1.020 (1.005-1.030) 06/13/22 12:13 Urine Protein Neg (Negative) 06/13/22 12:13 Urine Glucose (UA) 4+ (Normal) H 06/13/22 12:13 Urine Ketones Negative (Negative) 06/13/22 12:13 Urine Blood Neg (Negative) 06/13/22 12:13 Urine Nitrate Negative (Negative) 06/13/22 12:13 Urine Bilirubin Neg (Negative) 06/13/22 12:13 Urine Urobilinogen Norm mg/dL (Negative) 06/13/22 12:13 Ur Leukocyte Esterase Negative (Negative) 06/13/22 12:13 Discharge Plan Discharge Patient Disposition: Transfer to ED Clinical Impression: Subcapital fracture of right hip, Acute subdural hematoma Condition: Stable Prescriptions: No Action fluticasone propionate [Flonase Allergy Relief] 50 mcg/actuation spray,suspension 1 spray INTRANASAL DAILY@07 ferrous gluconate 324 mg (37.5 mg iron) tablet 324 mg PO DAILY@07 omeprazole 40 mg capsule,delayed release(DR/EC) 40 mg PO DAILY@07 polyethylene glycol 3350 [Miralax] 17 gram/dose powder 17 gm PO EVERY OTHER DAY Rx Instructions: hold for loose stools irbesartan 300 mg tablet 300 mg PO DAILY@07 Januvia 100 mg tablet 100 mg PO DAILY@07 metformin 500 mg tablet extended release 24 hr 500 mg PO BID@07,17 carvedilol [Coreg] 25 mg tablet 25 mg PO BID@07,20 celecoxib [Celebrex] 200 mg capsule 200 mg PO BID@07,20 rosuvastatin [Crestor] 40 mg tablet 40 mg PO BEDTIME@20 acetaminophen [Tylenol Extra Strength] 500 mg tablet 500 - 1,000 mg PO Q6H PRN (Reason: Pain) magnesium hydroxide [Milk of Magnesia] 400 mg/5 mL suspension See Rx Instructions .ROUTE .COMPLEX Rx Instructions: 30ml po every 48 hours if no bm as needed Jardiance 25 mg tablet 25 mg PO DAILY@07 albuterol sulfate [ProAir HFA] 90 mcg/actuation HFA aerosol inhaler 2 inh inhalation Q4H PRN (Reason: Shortness Of Breath) cetirizine 10 mg Tablet 10 mg PO BEDTIME@20 Ultram 50 mg Tablet 50 mg PO TID@07,12,20 amlodipine 10 mg tablet 10 mg PO DAILY@07 Flovent HFA 110 mcg/actuation Hfa Aerosol Inhaler 2 puff INHALATION BID@07,19 Cough Drops 2.7 mg Lozenge See Rx Instructions .ROUTE .COMPLEX Rx Instructions: may have at bedside Ozempic 0.25 mg or 0.5 mg (2 mg/3 mL) pen injector 0.5 mg SUBCUT Q7D Rx Instructions: on fridays Aricept 10 mg tablet 10 mg PO BEDTIME@20 sertraline 100 mg tablet 200 mg PO DAILY@07 trazodone 100 mg tablet 100 mg PO BEDTIME@20 benztropine 1 mg tablet 1 mg PO BID@07,19 olanzapine 15 mg tablet 15 mg PO BEDTIME@20 buspirone 15 mg tablet 15 mg PO TID@07,12,17 A and D Ointment See Rx Instructions .ROUTE .COMPLEX Rx Instructions: apply topically to feet and legs daily Referrals: Israel Rayo MD [Primary Care Provider] - Coding Level of Care Code ED Instrument Tech for Keri Lynn
--- NOTE | 2022-06-13 10:55 | XRR_ITS ---
PROCEDURE INFORMATION: Exam: XR Chest Exam date and time: 06/13/2022 11:01 AM Age: 76 years old Clinical indication: Cough and dyspnea; Additional info: Dyspnea/cough TECHNIQUE: Imaging protocol: Radiologic exam of the chest. Views: 1 view. Total images: 3 COMPARISON: CR XR chest 2V* [id number] 11/24/2020 9:30 AM FINDINGS: Lungs: Unremarkable. No consolidation. Pleural spaces: Unremarkable. No pleural effusion. No pneumothorax. Heart/Mediastinum: Unremarkable. No cardiomegaly. Bones/joints: Unremarkable. XR/XR chest 1V portable [id number] IMPRESSION: No acute findings.
--- NOTE | 2022-06-13 11:01 | XRR_ITS ---
PROCEDURE INFORMATION: Exam: XR Right Knee Exam date and time: 06/13/2022 11:03 AM Age: 76 years old Clinical indication: Injury or trauma; Fall; Blunt trauma; Knee; Right; Additional info: Pain TECHNIQUE: Imaging protocol: Radiologic exam of the right knee. Views: 3 views. Total images: 1 COMPARISON: CR XR knee RT 3V* [id number] 04/18/2022 1:06 PM FINDINGS: Bones/joints: Patellofemoral compartment osteophyte formation. Enthesophyte of the quadriceps tendon insertion site on the patella. Medial joint space narrowing unchanged. Mild marginal osteophytes are noted. No acute fracture nor subluxation. No osseous erosion nor periosteal reaction. Small joint effusion. Soft tissues: Normal. XR/XR knee RT 3V* [id number] IMPRESSION: 1. No acute osseous pathology. 2. Small joint effusion.
--- NOTE | 2022-06-13 11:06 | CT_ITS ---
WS: [id number] CT CERVICAL SPINE HISTORY: fall TECHNIQUE: Contiguous 2.0 mm axial imaging performed through the entire cervical spine. Sagittal and coronal reformats also performed. All CT scans at [facility] use at least one of these dose o ptimization techniques: automated exposure control; mA and/or kV adjustment per patient size (include s targeted exams where dose is matched to clinical indication); or iterative reconstruction. DLP: 1485.46 mGy.cm COMPARISON: None available. Straightening of the normal cervical lordosis. Mild hypertrophic osteophyte formation along the endpl ates. No fractures. Narrowing of the predental space. Odontoid process is intact. Lateral masses are normally aligned. Craniocervical junction is normal. C2-C3: Mild RIGHT foraminal stenosis and bilateral facet arthritis. C3-C4: Mild RIGHT foraminal stenosis. Severe bilateral facet arthritis. C4-C5: Osteophytic ridging with RIGHT foraminal stenosis and bilateral facet arthritis. C5-C6: Osteophytic ridging with severe RIGHT and mild LEFT facet arthritis. C6-C7: Mild osteophytic ridging with RIGHT facet arthritis. C7-T1: Normal. Lung apices are clear. CT/CT cervical spin wo con* [id number] IMPRESSION: 1. No acute cervical spine fracture. 2. Multilevel facet joint arthropathy and foraminal stenosis. Notified David Duvall DO at 06/13/2022 11:43 AM.
--- NOTE | 2022-06-13 11:15 | PC.PHAR ---
pt is from [facility] [phone] rose mary son fax mar and tar
[2022-06-13 11:18] LABS: Basophils # 0.1 10^3/uL (0.0-0.1); Basophils % 0.6 %; Eosinophils # 0.2 10^3/uL (0.0-0.8); Eosinophils % 2.1 %; Hematocrit 43.3 % (42.0-52.0); Hemoglobin 14.6 g/dL (11.7-16.6); Lymphocytes % 13.1 %; Mean Corpuscular HGB Conc 33.7 g/dL (30.0-36.0); Mean Corpuscular Volume 91.9 fl (80-94); Mean Platelet Volume 9.8 fL (7.4-10.4); Monocytes # 0.5 10^3/uL (0.2-0.9); Monocytes % 6.7 %; Neutrophils # 6.09 10^3/uL (1.8-7.7); Nucleated Red Blood Cells % 0 %; Platelet Count 126 10^3/cmm (130-400); Red Blood Count 4.71 10^6/uL (4.1-5.3); Red Cell Distribution Width 12.9 % (12.1-15.1); White Blood Count 7.9 10^3/uL (4.0-10.0)
[2022-06-13 11:33] LABS: Alanine Aminotransferase 18 U/L (0-41); Albumin Level 4.1 g/dL (3.5-5.2); Alkaline Phosphatase 66 U/L (40-130); Anion Gap 12.8 (5-19); Aspartate Amino Transferase 19 U/L (0-40); Blood Urea Nitrogen 13 mg/dL (8-23); Calcium 9.1 mg/dL (8.5-10.5); Carbon Dioxide 26 mmol/L (22-29); Chloride 105 mmol/L (98-107); Globulin 2.4 g/dL (1.3-4.6); Glucose 123 mg/dL (65-115); Osmolality Calculated 291 mOsm/kg (285-295); Potassium 3.8 mmol/L (3.5-5.1); Sodium 140 mmol/L (136-145); Total Bilirubin 0.2 mg/dL (0.15-1.2); Total Protein 6.5 g/dL (6.6-8.7)
[2022-06-13] MEDS: ondansetron 2 mg/ML SDV 2 mL 4 MG IVP (11:40)
[2022-06-13] MEDS: morphine 4 mg/mL SDV 1 mL IVP ×2 (11:40→15:17)
--- NOTE | 2022-06-13 11:49 | ECG_ITS ---
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 Measurements Intervals [place] Rate: 58 P: 83 AL: 207 QRS: -5 QRSD: 102 T: 46 QT: 432 QTc: 425 Interpretive Statements SINUS BRADYCARDIA LOW QRS VOLTAGE IN EXTREMITY LEADS [QRS DEFLECTION < 0.5 mV IN LIMB LEADS] Compared to ECG 07/29/2019 18:50:43 Low QRS voltage now present Sinus rhythm no longer present Electronically Signed On 06-14-2022 0:19:08 CDT by Tha Timmons M.D. [id number]
[2022-06-13 12:21] LABS: Add Urine Microscopic? NO; Charge for UA Resulting for Rev
[2022-06-13 12:26] LABS: Bilirubin Urine Neg (Negative); Blood Urine Neg (Negative); Glucose Urine UA 4+ (Normal); Ketones Urine Negative (Negative); Leukocyte Esterase Urine Negative (Negative); Nitrate Urine Negative (Negative); Protein Urine Neg (Negative); Urine Appearance Clear (CLEAR); Urine Color Yellow (Yellow); Urobilinogen Urine Norm (Negative); pH Urine 5 (5-7)
--- NOTE | 2022-06-13 13:30 | PC.NURSE ---
Pt hooked up to continuous bedside cardiac monitoring.
== END 2022-06-13 15:27 ==
PROVIDERS: Emergency Provider Family Medicine; PCP Family Medicine
DX: S72.011A Unspecified intracapsular fracture of right femur, initial encounter for closed fracture (principal); S06.5X9A Traumatic subdural hemorrhage with loss of consciousness of unspecified duration, initial encounter; W01.0XXA Fall on same level from slipping, tripping and stumbling without subsequent striking against object, initial encounter; S00.01XA Abrasion of scalp, initial encounter; E11.9 Type 2 diabetes mellitus without complications; I10 Essential (primary) hypertension; F17.220 Nicotine dependence, chewing tobacco, uncomplicated; F17.290 Nicotine dependence, other tobacco product, uncomplicated; Z79.84 Long term (current) use of oral hypoglycemic drugs
CPT/HCPCS: 36415; 51702; 70450; 71045; 72125; 73502; 73562; 80053; 81003; 85025; 93005; 96374; 96375; 96376; 99285; J2270; J2405

== ENCOUNTER 2022-09-18 15:06 | Outpatient (CLI) | payer MEDICARE, MEDICAID, SELFPAY ==
--- NOTE | 2022-09-18 15:13 | MR_ITS ---
WS: [id number] MRI RIGHT KNEE NONCONTRAST TECHNIQUE: Axial PD, coronal PD fat sat, coronal PD, sagittal PD, and sagittal PD fat-sat images obta ined. CLINICAL INFORMATION: R KNEE INSTABILITY COMPARISON: None. FINDINGS: Distal quadriceps and patellar tendons are intact. Moderate tricompartmental arthritis. Diffuse incre ased signal involving the ACL with thickening likely due to mucoid degeneration. Intact ACL fibers ar e visualized. Hypertrophic patella. Chronic narrowing of the medial and lateral meniscus. Small lobul ated intracondylar ganglion cysts. Grade III chondromalacia involving the medial and lateral joint compartments. Small suprapatellar eff usion. Moderate chondromalacia patella worse involving the medial patella facet. Medial and lateral c ollateral ligaments are intact. Normal popliteus. Normal bone marrow signal in the femoral condyles a nd tibial plateau. No acute fractures. Chronic tear with blunting of the medial meniscus. Diffuse tali nting of the body and root of the medial meniscus has a chronic appearance. No acute appearing latera l meniscal tears. Normal popliteal fossa. IMPRESSION: 1. 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 2. Diffuse fusiform thickening with increased signal involving the ACL likely due to mucoid degenera tion. Normal PCL. 3. Diffuse chronic tear with increased signal involving the medial meniscus with blunting of the men iscal root. 4. Medial and lateral collateral ligaments appear intact. 5. Moderate chondromalacia patella. 6. Small suprapatellar effusion. Outbridge grading:
--- NOTE | 2022-09-18 15:13 | CT_ITS ---
WS: [id number] CT HEAD NONCONTRAST HISTORY: SUBDURAL HEMATOMA TECHNIQUE: Contiguous axial imaging performed through the brain in 3.0 mm imaging. Bone and soft tiss ue windows. Sagittal and coronal reformats reviewed. All CT scans at [facility] use at least one of these dose optimization techniques: automated exposure control; mA and/or kV adjustment per pa tient size (includes targeted exams where dose is matched to clinical indication); or iterative recon struction. DLP: 1092.88 mGy.cm COMPARISON: 06/13/2022 Interval complete resolution of the very small RIGHT frontal subdural hematomas described on 06/13/2022 . No residual subdural hematomas and no mass effect. There is mild atrophy and small vessel ischemic disease throughout the white matter. No intraventricu lar blood. Ventricles: Normal size with no hydrocephalus. No inferior displacement of the cerebellar tonsils. Paranasal sinuses: As visualized are clear. Mastoid air cells: Well pneumatized. Calvarium and scalp: Skull is intact with no soft tissue edema or swelling. CT/CT head wo con* [id number] IMPRESSION: 1. Interval complete resolution very small acute subdural hematomas described on 06/13/2022. 2. Mild atrophy and small vessel ischemic disease is stable.
== END 2022-09-18 15:07 | disposition home or self-care (01) ==
LOC: RAD 15:10
PROVIDERS: PCP Family Medicine; Visit Provider Family Medicine
DX: S06.5XAA Traumatic subdural hemorrhage with loss of consciousness status unknown, initial encounter (principal); X58.XXXA Exposure to other specified factors, initial encounter; I67.89 Other cerebrovascular disease; M23.51 Chronic instability of knee, right knee; M17.11 Unilateral primary osteoarthritis, right knee; S83.241A Other tear of medial meniscus, current injury, right knee, initial encounter; M22.41 Chondromalacia patellae, right knee; M25.461 Effusion, right knee
CPT/HCPCS: 70450; 73721

== ENCOUNTER → 2022-10-23 14:52 | Outpatient (BNVA) | payer MEDICARE, OTHER, SELFPAY | PROVIDERS: PCP Family Medicine; Referring Provider Family Medicine; Visit Provider Specialist | DX: M17.11 Unilateral primary osteoarthritis, right knee | CPT/HCPCS: 20610; 73560; 73565; 99204; J1100; J2795; J3301 ==

== ENCOUNTER 2024-03-15 10:21 | Inpatient (IN) | payer MEDICARE, MEDICAID, SELFPAY ==
[2024-03-15] VITALS (14 sets, daily range): BP systolic 113–168; BP diastolic 66–115; PULSE 70–80; RESP 16–19; TEMP 36.7–37.1; O2SAT 90–94; BMI 27.6
--- NOTE | 2024-03-15 10:40 | CTR_ITS ---
PROCEDURE INFORMATION: Exam: CT Head Without Contrast Exam date and time: 03/15/2024 11:20 AM Age: 78 years old Clinical indication: Injury or trauma; Fall; Blunt trauma (contusions or hematomas) TECHNIQUE: Imaging protocol: Computed tomography of the head without contrast. Radiation optimization: All CT scans at this facility use at least one of these dose optimization techniques: automated exposure control; mA and/or kV adjustment per patient size (includes targeted exams where dose is matched to clinical indication); or iterative reconstruction. COMPARISON: CT head wo con* [id number] 09/18/2022 3:26 PM RADIATION DOSE METRICS: Total DLP (mGy-cm): 1128.48 FINDINGS: Brain: There are bilateral periventricular white matter and centrum semiovale hypodensities, consistent with chronic ischemic small vessel disease. Age related diffuse parenchymal volume loss. Cerebral ventricles: Ex vacuo dilatation of the ventricles. Paranasal sinuses: Visualized sinuses are unremarkable. No fluid levels. Mastoid air cells: Visualized mastoid air cells are well aerated. Bones: Unremarkable. No acute fracture. Soft tissues: Unremarkable. CT/CT head wo con* [id number] IMPRESSION: No large territorial infarct or intracranial bleed.
--- NOTE | 2024-03-15 10:40 | XRR_ITS ---
PROCEDURE INFORMATION: Exam: XR Chest Exam date and time: 03/15/2024 11:42 AM Age: 78 years old Clinical indication: Pre-operative exam; Cardiovascular screening and respiratory screening exam; Lt hip pain post fall; Pre op high risk procedure; Hypoxia TECHNIQUE: Imaging protocol: Radiologic exam of the chest. Views: 1 view. COMPARISON: CR XR chest 1V portable [id number] 06/13/2022 11:01 AM FINDINGS: Lungs: Reticular opacities in the left lower lung zone that might represent atelectasis versus infiltrates. Pleural spaces: Unremarkable. No pleural effusion. No pneumothorax. Heart/Mediastinum: Unremarkable. No cardiomegaly. Bones/joints: Mild degenerative disease of bilateral acromioclavicular joints. There are mild degenerative changes of the glenohumeral joint. The thoracic spine demonstrates mild degenerative changes at multiple levels. XR/XR chest 1V portable [id number] IMPRESSION: Reticular opacities in the left lower lung zone that might represent atelectasis versus infiltrates.
--- NOTE | 2024-03-15 10:41 | XRR_ITS ---
PROCEDURE INFORMATION: Exam: XR Pelvis Exam date and time: 03/15/2024 11:47 AM Age: 78 years old Clinical indication: Hip pain; Left hip; Prior surgery; Surgery date: 6+ months; Surgery type: RT hip arthroplasty; Additional info: Lt hip pain post fall TECHNIQUE: Imaging protocol: Radiologic exam of the pelvis. Views: 1 or 2 view. COMPARISON: CR XR hip RT 2-3V wo/w pel* [id number] 06/13/2022 10:39 AM FINDINGS: Bones/joints: Right hip arthroplasty. There is a left femoral basicervical fracture with varus angulation. Mild degenerative disease of the left hip joint and sacroiliac joints. Soft tissues: Unremarkable. Vasculature: There is pelvic phleboliths. XR/XR pelvis 1-2V* [id number] IMPRESSION: Left femoral basicervical fracture with varus angulation.
--- NOTE | 2024-03-15 10:41 | ECG_ITS ---
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 Measurements Intervals [place] Rate: 75 P: 59 MN: 214 QRS: 30 QRSD: 99 T: 52 QT: 416 QTc: 466 Interpretive Statements SINUS RHYTHM WITH FIRST DEGREE AV BLOCK Compared to ECG 06/13/2022 11:49:33 First degree AV block now present Sinus bradycardia no longer present Electronically Signed On 03-15-2024 13:14:48 BUSINESS ADMINISTRATOR by Jose Bridges M.D. [id number]
[2024-03-15 10:51] LABS: Basophils # 0.1 10^3/uL (0.0-0.1); Basophils % 0.4 %; Eosinophils # 0.1 10^3/uL (0.0-0.8); Eosinophils % 0.6 %; Hematocrit 52.1 % (37-53); Lymphocytes # 0.9 10^3/uL (0.8-4.8); Lymphocytes % 6.4 %; Mean Corpuscular HGB Conc 34.2 g/dL (30-55); Mean Corpuscular Hemoglobin 31.4 pg (27-33); Mean Platelet Volume 10.6 fL (7.4-10.4); Monocytes # 0.8 10^3/uL (0.2-0.9); Monocytes % 5.4 %; Neutrophils # 11.97 10^3/uL (1.8-7.7); Neutrophils % 86.7 %; Nucleated Red Blood Cells % 0 %; Platelet Count 135 10^3/cmm (157-399); Red Blood Count 5.66 10^6/uL (3.85-5.65); Red Cell Distribution Width 12.4 % (12.1-15.1); White Blood Count 13.82 10^3/uL (3.29-11.43)
[2024-03-15 11:01] LABS: INR 1.07 (0.8-1.2)
--- NOTE | 2024-03-15 11:01 | ED_ITS ---
HPI - Extremity Problem 2 General: Chief complaint: Extremity Injury, Lower Stated complaint: left hip pain s/p fall Time Seen by Provider: 03/15/24 10:39 History of Present Illness: 78-year-old man with a history of hypert ension, diabetes, schizoaffective disorder who presents to the emergency room from lamp light by ambulance after he was walking in his room and fell. He said he felt a little bit dizzy and this got him off balance and he fell. He is complaining of left hip pain. He has obvious shortening and rotation of that left leg. He did not hit his head. He is not on any anticoagulation. No abdominal pain. No chest pain. No shortness of breath. No nausea or vomiting. No altered mental status. No focal motor deficits. No loss of consciousness. Isolated injury to the left hip. Related Data Home Medications Medication Instructions Recorded Confirmed acetaminophen 500 mg tablet 500 - 1,000 mg PO Q6H PRN Pain 02/21/19 01/17/24 (Tylenol Extra Strength) carvedilol 25 mg tablet (Coreg) 25 mg PO BID@02/21/19 01/17/24 celecoxib 200 mg capsule (Celebrex) 200 mg PO BID@,02/21/19 01/17/24 ferrous gluconate 324 mg (37.5 mg 324 mg PO DAILY@02/21/19 01/17/24 iron) tablet fluticasone propionate 50 1 spray intranasal DAILY@02/21/19 01/17/24 mcg/actuation nasal spray,suspension (Flonase Allergy Relief) irbesartan 300 mg tablet 300 mg PO DAILY@02/21/19 01/17/24 magnesium hydroxide 400 mg/5 mL See Rx Instructions .Route .COMPLEX 02/21/19 01/17/24 oral suspension (Milk of Magnesia) metformin 500 mg tablet,extended 500 mg PO BID@02/21/19 01/17/24 release 24 hr omeprazole 40 mg capsule,delayed 40 mg PO DAILY@02/21/19 01/17/24 release polyethylene glycol 3350 17 17 gm PO EVERY OTHER DAY 02/21/19 01/17/24 gram/dose oral powder (Miralax) rosuvastatin 40 mg tablet (Crestor) 40 mg PO BEDTIME@02/21/19 01/17/24 sitagliptin phosphate 100 mg 100 mg PO DAILY@07 02/21/19 01/17/24 tablet (Januvia) albuterol sulfate 90 mcg/actuation 2 inh inhalation Q4H PRN Shortness 09/08/21 01/17/24 aerosol inhaler (ProAir HFA) Of Breath empagliflozin 25 mg tablet 25 mg PO DAILY@09/08/21 01/17/24 (Jardiance) amlodipine 10 mg tablet 10 mg PO DAILY@06/13/22 01/17/24 cetirizine 10 mg tablet 10 mg PO BEDTIME@06/13/22 01/17/24 fluticasone propionate 110 2 puff inhalation BID@,06/13/22 01/17/24 mcg/actuation HFA aerosol inhaler (Flovent HFA) menthol 2.7 mg lozenges (Cough See Rx Instructions .Route .COMPLEX 06/13/22 01/17/24 Drops) semaglutide 0.25 mg or 0.5 mg (2 0.5 mg SUBCUT Q7D 06/13/22 01/17/24 mg/3 mL) subcutaneous pen injector (Ozempic) tramadol 50 mg tablet 50 mg PO TID@07,,06/13/22 01/17/24 vitamin A and D See Rx Instructions .Route .COMPLEX 06/13/22 01/17/24 Previous Rx's Medication Instructions Recorded buspirone 15 mg tablet See Rx Instructions .Route 12/03/23 .COMPLEX #90 tabs sertraline 100 mg tablet 200 mg (2 x 100 mg) PO DAILY@01/04/24 #60 tabs trazodone 100 mg tablet See Rx Instructions .Route 01/04/24 .COMPLEX #30 tabs donepezil 10 mg tablet (Aricept) 10 mg PO BEDTIME@20 #30 tabs 02/08/24 olanzapine 15 mg tablet See Rx Instructions .Route 02/11/24 .COMPLEX #30 tabs benztropine 1 mg tablet See Rx Instructions .Route 02/28/24 .COMPLEX #60 tabs Allergies Allergy/AdvReac Type Severity Reaction Status Date / Time diphenhydramine Allergy Unknown Verified 01/17/24 11:27 [From Benadryl] lithium Allergy Unknown Verified 01/17/24 11:27 Penicillins Allergy Unknown Verified 01/17/24 11:27 Sulfa (Sulfonamide Allergy Unknown Verified 01/17/24 11:27 Antibiotics) Review of Systems 2 Narrative: Constitutional symptoms: Negative except as documented in HPI. Skin symptoms: Negative except as documented in HPI. Eye symptoms: Negative except as documented in HPI. ENMT symptoms: Negative except as documented in HPI. Respiratory symptoms: Negative except as documented in HPI. Cardiovascular symptoms: Negative except as documented in HPI. Gastrointestinal symptoms: Negative except as documented in HPI. Genitourinary symptoms: Negative except as documented in HPI. Musculoskeletal symptoms: Negative except as documented in HPI. Neurologic symptoms: Negative except as documented in HPI. Psychiatric symptoms: Negative except as documented in HPI. Endocrine symptoms: Negative except as documented in HPI. PFSH ED 2 PFSH: Medical History Alcohol dependence, in remission Diabetes mellitus Dyskinesia, tardive Hypertension Nicotine dependence, chewing tobacco, uncomplicated Psychiatric care Schizoaffective disorder, bipolar type Social History Smoking and tobacco/nicotine status: current every day tobacco/nicotine user cigars and smokeless tobacco Smokeless tobacco user: chewing tobacco Physical Exam 2 Narrative: EXAM NARRATIVE: General: Alert, no acute distress. Skin: Warm, dry. Head: Normocephalic, atraumatic. Neck: Supple, trachea midline. Eye: Extraocular movements are intact. Ears, nose, mouth and throat: mucosa moist. Cardiovascular: Regular, Normal peripheral perfusion. Respiratory: Lungs are clear to auscultation, respirations are non-labored, breath sounds are equal, Symmetrical chest wall expansion. Gastrointestinal: Soft, Nontender, Non distended Musculoskeletal: Shortening and rotation of the left leg with pain in the hip with any movement of the leg. Neurological: Alert and oriented, No focal neurological deficit observed. Psychiatric: Cooperative, appropriate mood & affect. Course 2 Vital Signs: Vital signs: Vital Signs Temperature 98.1 F 03/15/24 10:28 Pulse Rate 76 03/15/24 12:00 Respiratory Rate 16 03/15/24 12:24 Blood Pressure 154/76 03/15/24 12:00 Pulse Oximetry 92 03/15/24 12:24 Oxygen Delivery Me thod Room Air 03/15/24 10:28 MDM - Extremity (Nontraumatic) Medical Decision Making Medical decision making: Differential diagnosis for the patient with fall and hip pain includes but not limited to and based on the above HPI, review of systems and physical exam: Hip fracture, femur fracture, pelvic fractures including pubic rami and acetabular fractures, hip strain, hip contusion CT head: No acute intracranial process. no intracranial hemorrhage, no evidence of infarct. no evidence of acute fracture.This was reviewed and interpreted by myself the ER physician. Chest x-ray: Reticular opacities in the left lower lung that might represent atelectasis versus infiltrate. No pneumonia symptoms. No pneumothorax. This was reviewed and interpreted by myself the emergency room physician. I also reviewed the radiology report. EKG: Time 1057. Rate 75. Normal sinus rhythm, No ST-T changes, no ectopy, first degree AV Block, EP Interpretation. This was reviewed and interpreted by myself the ER physician at 11 AM. X-ray of the right hip and pelvis: Left hip fracture. This was reviewed and interpreted by myself the emergency room physician. I also reviewed the radiology report. Lab review: I reviewed interpret labs personally. Mild leukocytosis. Mild polycythemia. No renal failure. Reexamination: Patient remained stable. He has requested some pain medicine which she has been given. No increased work of breathing. No altered mental status. No shortness of breath. No oxygen requirements. Consultation: I spoke with Dr. Phillips who will see the patient and likely will perform surgery. N.p.o. after midnight for surgery tomorrow. Consultation: I spoke with Dr. Kumar who is admitting the patient. Assessment and plan: Hip fracture Fall ?IV morphine and Zofran in the emergency room. -I discussed the patient with the hospitalist on-call who is admitting the patient. - Discussed findings and plan with patient. Answered any questions. - All laboratory values were reviewed and interpreted personally by myself, the ER physician - All imaging was reviewed and interpreted personally by myself, the ER physician. - Evaluation and treatment of this problem were appropriate in the emergency setting Lab Data 03/15/24 09:54 03/15/24 09:54 Radiology Impressions Chest X-Ray 03/15/24 10:40 IMPRESSION: Reticular opacities in the left lower lung zone that might represent atelectasis versus infiltrates. Head CT 03/15/24 10:40 IMPRESSION: No large territorial infarct or intracranial bleed. Pelvis X-Ray 03/15/24 10:41 IMPRESSION: Left femoral basicervical fracture with varus angulation. Femur X-Ray 03/15/24 11:51 IMPRESSION: Left basicervical femoral fracture with varus angulation. Laboratory Results WBC 13.82 10^3/uL (3.29-11.43) H 03/15/24 09:54 RBC 5.66 10^6/uL (3.85-5.65) H 03/15/24 09:54 Hgb 17.80 g/dL (11.27-16.99) H 03/15/24 09:54 Hct 52.1 % (37-53) 03/15/24 09:54 MCV 92.0 fl (82-101) 03/15/24 09:54 MCH 31.4 pg (27-33) 03/15/24 09:54 MCHC 34.2 g/dL (30-55) 03/15/24 09:54 RDW 12.4 % (12.1-15.1) 03/15/24 09:54 Plt Count 135 10^3/cmm (157-399) L 03/15/24 09:54 MPV 10.6 fL (7.4-10.4) H 03/15/24 09:54 Neut % (Auto) 86.7 % 03/15/24 09:54 Lymph % (Auto) 6.4 % 03/15/24 09:54 Day % (Auto) 5.4 % 03/15/24 09:54 Eos % (Auto) 0.6 % 03/15/24 09:54 Baso % (Auto) 0.4 % 03/15/24 09:54 Neut # (Auto) 11.97 10^3/uL (1.8-7.7) H 03/15/24 09:54 Lymph # (Auto) 0.9 10^3/uL (0.8-4.8) 03/15/24 09:54 Day # (Auto) 0.8 10^3/uL (0.2-0.9) 03/15/24 09:54 Eos # (Auto) 0.1 10^3/uL (0.0-0.8) 03/15/24 09:54 Baso # (Auto) 0.1 10^3/uL (0.0-0.1) 03/15/24 09:54 Nucleated RBC % (auto) 0 % 03/15/24 09:54 Nucleated RBCs # 0.0 /100WBC 03/15/24 09:54 PT 14.60 SECONDS (12.1-14.9) 03/15/24 09:54 INR 1.07 (0.8-1.2) 03/15/24 09:54 APTT 28.3 SECONDS (23.9-36.7) 03/15/24 09:54 Sodium 140 mmol/L (136-145) 03/15/24 09:54 Potassium 4.0 mmol/L (3.5-5.1) 03/15/24 09:54 Chloride 100 mmol/L (98-107) 03/15/24 09:54 Carbon Dioxide 31 mmol/L (22-29) H 03/15/24 09:54 Anion Gap 13.0 (5-19) 03/15/24 09:54 BUN 13 mg/dL (8-23) 03/15/24 09:54 Creatinine 0.7 mg/dL (0.7-1.2) 03/15/24 09:54 GFR Calculation Not Reportable 03/15/24 09:54 Glucose 137 mg/dL (65-115) H 03/15/24 09:54 Calculated Osmolality 292 mOsm/kg (285-295) 03/15/24 09:54 Calcium 9.6 mg/dL (8.5-10.5) 03/15/24 09:54 Total Bilirubin 0.6 mg/dL (0.15-1.2) 03/15/24 09:54 AST 48 U/L (0-40) H 03/15/24 09:54 ALT 59 U/L (0-41) H 03/15/24 09:54 Alkaline Phosphatase 100 U/L (40-130) 03/15/24 09:54 Total Protein 7.8 g/dL (6.6-8.7) 03/15/24 09:54 Albumin 4.8 g/dL (3.5-5.2) 03/15/24 09:54 Globulin 3.0 g/dL (1.3-4.6) 03/15/24 09:54 Coronavirus (PCR) Negative (Negative) 03/15/24 10:45 Influenza A (PCR) Negative (Negative) 03/15/24 10:45 Influenza Type B (PCR) Negative (Negative) 03/15/24 10:45 RSV (PCR) Negative (Negative) 03/15/24 10:45 All radiology interpretation(s) finalized by discharge Discharge Plan Discharge Patient Disposition: Admitted As Inpatient Clinical Impression: Closed hip fracture Qualifiers: Encounter type: initial encounter Laterality: left Qualified Code(s): S72.002A - Fracture of unspecified part of neck of left femur, initial encounter for closed fracture Condition: Stable Coding Level of Care Code ED General [employer] Attendant for Keri Lynn
[2024-03-15 11:02] LABS: Partial Thromboplastin Time 28.3 SECONDS (23.9-36.7)
[2024-03-15 11:07] LABS: Alanine Aminotransferase 59 U/L (0-41); Albumin Level 4.8 g/dL (3.5-5.2); Alkaline Phosphatase 100 U/L (40-130); Aspartate Amino Transferase 48 U/L (0-40); Blood Urea Nitrogen 13 mg/dL (8-23); Calcium 9.6 mg/dL (8.5-10.5); Carbon Dioxide 31 mmol/L (22-29); Chloride 100 mmol/L (98-107); Creatinine Clr Calc Pharmacy 77.1475; Glucose 137 mg/dL (65-115); Osmolality Calculated 292 mOsm/kg (285-295); Sodium 140 mmol/L (136-145); Total Bilirubin 0.6 mg/dL (0.15-1.2); Total Protein 7.8 g/dL (6.6-8.7)
--- NOTE | 2024-03-15 11:09 | PC.NURSE ---
this nurse assumed pt care at 1100 from VIKTORIA Linda.
--- NOTE | 2024-03-15 11:51 | XRR_ITS ---
PROCEDURE INFORMATION: Exam: XR Left Femur Exam date and time: 03/15/2024 11:52 AM Age: 78 years old Clinical indication: Left; Lt hip pain post fall TECHNIQUE: Imaging protocol: Radiologic exam of the left femur. Views: 2 views. COMPARISON: CR XR pelvis 1-2V* [id number] 03/15/2024 11:47 AM FINDINGS: Bones/joints: There is a left basicervical femoral fracture with varus angulation. Mild left hip joint effusion. Mild degenerative disease of the left sacroiliac joint, left hip joint and pubic symphysis. Moderate degenerative disease of the left knee joint. Small knee joint effusion. Soft tissues: Quadriceps enthesophytes. Vasculature: Vascular calcifications. XR/XR femur LT min 2V* [id number] IMPRESSION: Left basicervical femoral fracture with varus angulation.
[2024-03-15 11:52] LABS: Influenza A NEGATIVE (Negative); Influenza B NEGATIVE (Negative); Respiratory Syncytial Virus Ce NEGATIVE (Negative); SARS-CoV-2 PCR NEGATIVE (Negative)
[2024-03-15] MEDS: ondansetron 2 mg/ML SDV 2 mL 4 MG IVP (12:24)
[2024-03-15] MEDS: morphine 4 mg/mL SDV 1 mL IVP ×2 (12:24→22:09)
--- NOTE | 2024-03-15 13:24 | PM.HP ---
Providers/Chief Complaint Chief Complaint: left hip pain s/p fall History of Present Illness Yordan Cali is a 78 year old male with past medical history of hypertension diabetes schizoaffective disorder, diabetes mellitus, not on any oxygen at home presented to the hospital today after a dizziness episode and falling. He states at times his legs give out and he feels weak. He also complains of lightheadedness. Denies any shortness of breath chest pain abdominal pain nausea vomiting diarrhea at this time. He states he did not hit his head. He lives at [facility]. He states he would like to be a full code. Initial EKG in the ER showed sinus rhythm. Chest x-ray does show reticular opacities in left lower lung that might represent atelectasis versus infiltrate no pneumonia symptoms no pneumothorax. X-ray of hip and pelvis shows left hip fracture. Dr. Phillips was consulted from the ER. CT head negative for bleed or acute intracranial process. Femur x-ray showed left basicervical femoral fractures with varus angulation. WBC 13.8, hemoglobin 17.8, INR 1.07, potassium 4.0, creatinine 0.7. Patient saturating 92% on 2 L nasal cannula at this time. Medications/Allergies Home Medications Medication Instructions Recorded Confirmed Last Taken Type acetaminophen 500 mg tablet 500 - 1,000 mg PO Q6H PRN Pain 02/21/19 03/15/24 Unknown History (Tylenol Extra Strength) carvedilol 25 mg tablet (Coreg) 25 mg PO BID@02/21/19 03/15/24 03/14/24 History celecoxib 200 mg capsule (Celebrex) 200 mg PO BID@02/21/19 03/15/24 03/14/24 History fluticasone propionate 50 1 spray intranasal DAILY@02/21/19 03/15/24 03/14/24 History mcg/actuation nasal spray,suspension (Flonase Allergy Relief) irbesartan 300 mg tablet 300 mg PO DAILY@02/21/19 03/15/24 03/14/24 History magnesium hydroxide 400 mg/5 mL See Rx Instructions .Route .COMPLEX 02/21/19 03/15/24 Unknown History oral suspension (Milk of Magnesia) metformin 500 mg tablet,extended 500 mg PO BID@02/21/19 03/15/24 03/14/24 History release 24 hr omeprazole 40 mg capsule,delayed 40 mg PO DAILY@07 02/21/19 03/15/24 03/14/24 History release polyethylene glycol 3350 17 17 gm PO EVERY OTHER DAY 02/21/19 03/15/24 07/29/19 History gram/dose oral powder (Miralax) rosuvastatin 40 mg tablet (Crestor) 40 mg PO BEDTIME@20 02/21/19 03/15/24 03/14/24 20:00 History sitagliptin phosphate 100 mg 100 mg PO DAILY@07 02/21/19 03/15/24 03/14/24 History tablet (Januvia) empagliflozin 25 mg tablet 25 mg PO DAILY@09/08/21 03/15/24 03/14/24 History (Jardiance) amlodipine 10 mg tablet 10 mg PO DAILY@07 06/13/22 03/15/24 03/14/24 History cetirizine 10 mg tablet 10 mg PO BEDTIME@20 06/13/22 03/15/24 03/14/24 20:00 History menthol 2.7 mg lozenges (Cough See Rx Instructions .Route .COMPLEX 06/13/22 03/15/24 Unknown History Drops) semaglutide 0.25 mg or 0.5 mg (2 0.5 mg SUBCUT Q7D 06/13/22 03/15/24 03/14/24 History mg/3 mL) subcutaneous pen injector (Ozempic) tramadol 50 mg tablet 50 mg PO TID@07,12,20 06/13/22 03/15/24 03/14/24 History vitamin A and D See Rx Instructions .Route .COMPLEX 06/13/22 03/15/24 Unknown History buspirone 15 mg tablet See Rx Instructions .Route 12/03/23 03/15/24 03/14/24 Rx .COMPLEX #90 tabs sertraline 100 mg tablet 200 mg (2 x 100 mg) PO DAILY@07 01/04/24 03/15/24 03/14/24 Rx #60 tabs trazodone 100 mg tablet See Rx Instructions .Route 01/04/24 03/15/24 03/14/24 20:00 Rx .COMPLEX #30 tabs donepezil 10 mg tablet (Aricept) 10 mg PO BEDTIME@20 #30 tabs 02/08/24 03/15/24 03/14/24 20:00 Rx benztropine 1 mg tablet See Rx Instructions .Route 02/28/24 03/15/24 03/14/24 Rx .COMPLEX #60 tabs albuterol sulfate 90 mcg/actuation 1 puff inhalation QID PRN 03/15/24 03/15/24 Unknown History aerosol inhaler Shortness Of Breath Or Wheezing ferrous sulfate 325 mg (65 mg 325 mg PO DAILY 03/15/24 03/15/24 03/14/24 History iron) tablet fluticasone furoate 100 1 inh inhalation DAILY 03/15/24 03/15/24 03/14/24 History mcg-vilanterol 25 mcg/dose inhalation powder (Breo Ellipta) olanzapine 15 mg tablet 15 mg PO BEDTIME 03/15/24 03/15/24 03/14/24 20:00 History Allergies Allergy/AdvReac Type Severity Reaction Status Date / Time diphenhydramine Allergy Unknown Verified 01/17/24 11:27 [From Benadryl] lithium Allergy Unknown Verified 01/17/24 11:27 Penicillins Allergy Unknown Verified 01/17/24 11:27 Sulfa (Sulfonamide Allergy Unknown Verified 01/17/24 11:27 Antibiotics) PFSH Acute PFSH: Medical History Alcohol dependence, in remission Diabetes mellitus Dyskinesia, tardive Hypertension Nicotine dependence, chewing tobacco, uncomplicated Psychiatric care Schizoaffective disorder, bipolar type Social History Smoking and tobacco/nicotine status: current every day tobacco/nicotine user cigars and smokeless tobacco Smokeless tobacco user: chewing tobacco Vitals/I&O/Wt Last Vital Signs Temp 98.1 F 03/15/24 10:28 Pulse 74 03/15/24 13:00 Resp 16 03/15/24 13:00 BP 133/72 03/15/24 13:00 Pulse Ox 90 03/15/24 13:00 O2 Del Method Nasal Cannula 03/15/24 13:00 O2 Flow Rate 2 03/15/24 13:00 Weight last 48 hrs Weight 82.554 kg Physical Exam Narrative: General: Alert oriented x3, patient seen laying in bed at this time. Appearing comfortable. HEENT: Normocephalic, atraumatic, EOMI, breathing on 3 L nasal cannula. Complains he has pain and would like pain medication at this time. Cardio: Regular rate rhythm, normal S1-S2, Respiratory: Mainly clear to auscultation bilaterally no wheezes no rhonchi. GI: Abdomen soft, nontender, nondistended, bowel sounds + Extremities: Left leg externally rotated and shortened. Mild swelling present at hip area no large ecchymosis. Data 03/15/24 09:54 03/15/24 09:54 A&P Assessment and plan (1) Schizoaffective disorder, bipolar type: (2) Hypertension: (3) Diabetes mellitus: (4) Closed hip fracture: Qualifiers: Encounter type: initial encounter Laterality: left Qualified Code(s): S72.002A - Fracture of unspecified part of neck of left femur, initial encounter for closed fracture (5) Dyskinesia, tardive: (6) Nicotine dependence, chewing tobacco, uncomplicated: (7) History of alcohol abuse: (8) First degree AV block: Plan #Left hip fracture #Hypertension #Schizoaffective disorder #Lives at assisted living facility #Bilateral atelectasis #New oxygen requirement #New first-degree AV block ? Continue amlodipine, buspirone, donepezil, olanzapine, rosuvastatin, sertraline, trazodone ? Hold Coreg at this time secondary to first-degree AV block on one of the EKGs. ? Continue to monitor on telemetry at this time ? Patient denies any chest pain or shortness of breath. Oxygen requirement may be secondary to atelectasis?. ? Will check CTA chest to rule out PE. ? White count slightly elevated most likely reactive. ? Patient does have polycythemia most likely secondary to smoking use versus dehydration at this time. ? Will start gentle fluid hydration normal saline 75 cc/h ? BNP normal 102. Do not suspect heart failure at this time. ? He does complain of dizziness and has had a fall recently. He states that other times also his legs give out. Possibly secondary to polypharmacy? Versus underlying heart block.? ? Patient will be n.p.o. at midnight. Plan for surgical intervention in AM. Dr. Phillips consulted. ? Order incentive spirometer and flutter valve for patient. DVT prophylaxis: Heparin SQ twice daily Full code Attestations Medical Necessity Statement*: Greater than 2 midnight stay at this time for management of hip fracture. Diagnoses Schizoaffective disorder, bipolar type F25.0 Hypertension I10 Diabetes mellitus E11.9 Closed hip fracture S72.002A Encounter type: initial encounter Laterality: left Dyskinesia, tardive G24.01 Nicotine dependence, chewing tobacco, uncomplicated F17.220 History of alcohol abuse F10.11 First degree AV block I44.0
--- NOTE | 2024-03-15 13:38 | P.CONIM_ITS ---
Providers/Reason For Consult 2 Consulting Physician/Specialty*: John Phillips DO/orthopedic surgery Reason for Consult*: Displaced left hip femoral neck fracture Requesting Physician: Dr. Garber Attending Physician: Dr. Kumar History of Present Illness History of Present Illness Yordan Cali is a 78 year old male who sustained a ground-level fall earlier this morning. Patient lives in assisted living facility. Patient denies any preceding events prior to fall mechanical fall denies any loss of consciousness or hitting his head. Patient states he landed directly on his left hip had significant pain and inability bear weight to the left lower extremity. This point time brought to the emergency department workup reveals patient has displaced left hip femoral neck fracture. He also has a history of a previous right hip hemiarthroplasty from a right hip femoral neck fracture back in 2022. Apparently he had this taken care of in [place] as he did have a subdural hematoma at that time and transferred out to a facility with neurosurgical coverage. This point time he denies any other issues pain or discomfort and only complaining of left hip pain. Denies any chest pain shortness of breath. Review of Systems 2 General: Reports: 10 or more systems reviewed and unremarkable except in HPI and below Medications/Allergies Home Medications Medication Instructions Recorded Confirmed Last Taken Type acetaminophen 500 mg tablet 500 - 1,000 mg PO Q6H PRN Pain 02/21/19 03/15/24 Unknown History (Tylenol Extra Strength) carvedilol 25 mg tablet (Coreg) 25 mg PO BID@02/21/19 03/15/24 03/14/24 History celecoxib 200 mg capsule (Celebrex) 200 mg PO BID@02/21/19 03/15/24 03/14/24 History fluticasone propionate 50 1 spray intranasal DAILY@02/21/19 03/15/24 03/14/24 History mcg/actuation nasal spray,suspension (Flonase Allergy Relief) irbesartan 300 mg tablet 300 mg PO DAILY@02/21/19 03/15/24 03/14/24 History magnesium hydroxide 400 mg/5 mL See Rx Instructions .Route .COMPLEX 02/21/19 03/15/24 Unknown History oral suspension (Milk of Magnesia) metformin 500 mg tablet,extended 500 mg PO BID@02/21/19 03/15/24 03/14/24 History release 24 hr omeprazole 40 mg capsule,delayed 40 mg PO DAILY@07 02/21/19 03/15/24 03/14/24 History release polyethylene glycol 3350 17 17 gm PO EVERY OTHER DAY 02/21/19 03/15/24 07/29/19 History gram/dose oral powder (Miralax) rosuvastatin 40 mg tablet (Crestor) 40 mg PO BEDTIME@20 02/21/19 03/15/24 03/14/24 20:00 History sitagliptin phosphate 100 mg 100 mg PO DAILY@07 02/21/19 03/15/24 03/14/24 History tablet (Januvia) empagliflozin 25 mg tablet 25 mg PO DAILY@09/08/21 03/15/24 03/14/24 History (Jardiance) amlodipine 10 mg tablet 10 mg PO DAILY@07 06/13/22 03/15/24 03/14/24 History cetirizine 10 mg tablet 10 mg PO BEDTIME@20 06/13/22 03/15/24 03/14/24 20:00 History menthol 2.7 mg lozenges (Cough See Rx Instructions .Route .COMPLEX 06/13/22 03/15/24 Unknown History Drops) semaglutide 0.25 mg or 0.5 mg (2 0.5 mg SUBCUT Q7D 06/13/22 03/15/24 03/14/24 History mg/3 mL) subcutaneous pen injector (Ozempic) tramadol 50 mg tablet 50 mg PO TID@07,12,20 06/13/22 03/15/24 03/14/24 History vitamin A and D See Rx Instructions .Route .COMPLEX 06/13/22 03/15/24 Unknown History buspirone 15 mg tablet See Rx Instructions .Route 12/03/23 03/15/24 03/14/24 Rx .COMPLEX #90 tabs sertraline 100 mg tablet 200 mg (2 x 100 mg) PO DAILY@07 01/04/24 03/15/24 03/14/24 Rx #60 tabs trazodone 100 mg tablet See Rx Instructions .Route 01/04/24 03/15/24 03/14/24 20:00 Rx .COMPLEX #30 tabs donepezil 10 mg tablet (Aricept) 10 mg PO BEDTIME@20 #30 tabs 02/08/24 03/15/24 03/14/24 20:00 Rx benztropine 1 mg tablet See Rx Instructions .Route 02/28/24 03/15/24 03/14/24 Rx .COMPLEX #60 tabs albuterol sulfate 90 mcg/actuation 1 puff inhalation QID PRN 03/15/24 03/15/24 Unknown History aerosol inhaler Shortness Of Breath Or Wheezing ferrous sulfate 325 mg (65 mg 325 mg PO DAILY 03/15/24 03/15/24 03/14/24 History iron) tablet fluticasone furoate 100 1 inh inhalation DAILY 03/15/24 03/15/24 03/14/24 History mcg-vilanterol 25 mcg/dose inhalation powder (Breo Ellipta) olanzapine 15 mg tablet 15 mg PO BEDTIME 03/15/24 03/15/24 03/14/24 20:00 History Allergies Allergy/AdvReac Type Severity Reaction Status Date / Time diphenhydramine Allergy Unknown Verified 01/17/24 11:27 [From Benadryl] lithium Allergy Unknown Verified 01/17/24 11:27 Penicillins Allergy Unknown Verified 01/17/24 11:27 Sulfa (Sulfonamide Allergy Unknown Verified 01/17/24 11:27 Antibiotics) PFSH Acute 2 PFSH: Medical History Alcohol dependence, in remission Diabetes mellitus Dyskinesia, tardive Hypertension Nicotine dependence, chewing tobacco, uncomplicated Psychiatric care Schizoaffective disorder, bipolar type Social History Smoking and tobacco/nicotine status: current every day tobacco/nicotine user cigars and smokeless tobacco Smokeless tobacco user: chewing tobacco Vitals/I&O/Wt Last Vital Signs Temp 98.1 F 03/15/24 10:28 Pulse 74 03/15/24 13:00 Resp 16 03/15/24 13:00 BP 133/72 03/15/24 13:00 Pulse Ox 90 03/15/24 13:00 O2 Del Method Nasal Cannula 03/15/24 13:00 O2 Flow Rate 2 03/15/24 13:00 Weight last 48 hrs Weight 182 lb Physical Exam 2 Narrative: Patient is able to to follow commands and perform a standard?examination.?? Examination left lower extremity: Examination of the left lower extremity demonstrates patient has tenderness palpation of the left?hip?as well as the left lower extremity is shortened and externally rotated pt has positive logroll on?examination unable to perform Stinchfield's secondary to pain and discomfort.? Patient is able to wiggle toes plantarflex and dorsiflex ankle sensations intact to light touch distally.? Distal pulses are palpable left lower extremity is warm and well-perfused.? Mild swelling noted about the left?hip.?? Secondary survey?examination unremarkable For any acute pathology to the bilateral upper extremities or contralateral lower extremity.? pt? has no tenderness to palpation to the bilateral upper extremities joints and no noticeable deformities.? ?gross motor and sensory is intact to the bilateral upper extremities.? Contralateral lower extremity has no tenderness to the?hip?knee or ankle with no appreciable deformities and is able to plantarflex and dorsiflex ankle sensations intact to light touch distally as well as wiggle toes.? Distal pulses palpable.? Negative pelvic compression test, no tenderness palpation of the spine. Data 03/16/24 02:59 03/16/24 02:59 Xray Ortho: Radiologist's impression: [address] [place] [address] XRay Report Signed Patient: Yordan Cali Unit #: [id number] : 1945 Age/Sex: 78 / M ADM Date: 03/15/24 Loc: ER Room/Bed: Attending Dr: Ordering Provider/Ordering MD: Angelika Garber MD Date of Service: 03/15/24 Procedure(s): XR pelvis 1-2V* 16685 Accession Number(s): [id number] Report Number: [id number] PROCEDURE INFORMATION: Exam: XR Pelvis Exam date and time: 03/15/2024 11:47 AM Age: 78 years old Clinical indication: Hip pain; Left hip; Prior surgery; Surgery date: 6+ months; Surgery type: RT hip arthroplasty; Additional info: Lt hip pain post fall TECHNIQUE: Imaging protocol: Radiologic exam of the pelvis. Views: 1 or 2 view. COMPARISON: CR XR hip RT 2-3V wo/w pel* [id number] 06/13/2022 10:39 AM FINDINGS: Bones/joints: Right hip arthroplasty. There is a left femoral basicervical fracture with varus angulation. Mild degenerative disease of the left hip joint and sacroiliac joints. Soft tissues: Unremarkable. Vasculature: There is pelvic phleboliths. XR/XR pelvis 1-2V* [id number] IMPRESSION: Left femoral basicervical fracture with varus angulation. Ordering Provider/Ordering MD: Angelika Garber MD Date of Service: 03/15/24 Procedure(s): XR femur LT min 2V* [id number] Accession Number(s): [id number] Report Number: [id number] PROCEDURE INFORMATION: Exam: XR Left Femur Exam date and time: 03/15/2024 11:52 AM Age: 78 years old Clinical indication: Left; Lt hip pain post fall TECHNIQUE: Imaging protocol: Radiologic exam of the left femur. Views: 2 views. COMPARISON: CR XR pelvis 1-2V* [id number] 03/15/2024 11:47 AM FINDINGS: Bones/joints: There is a left basicervical femoral fracture with varus angulation. Mild left hip joint effusion. Mild degenerative disease of the left sacroiliac joint, left hip joint and pubic symphysis. Moderate degenerative disease of the left knee joint. Small knee joint effusion. Soft tissues: Quadriceps enthesophytes. Vasculature: Vascular calcifications. XR/XR femur LT min 2V* [id number] IMPRESSION: Left basicervical femoral fracture with varus angulation. A&P Assessment and plan (1) Closed hip fracture: Qualifiers: Encounter type: initial encounter Laterality: left Qualified Code(s): S72.002A - Fracture of unspecified part of neck of left femur, initial encounter for closed fracture Plan Orthopedics consulted Hospitalist admitted patient is primary Imaging reviewed?displaced left ?hip?femoral neck fracture Labs reviewed Pain control Nonweightbearing left lower extremity May have a diet today N.p.o. at midnight Hold AM anticoagulation prior to surgery Plan?to add on for surgery tomorrow for a left?hip?hemiarthroplasty MDM: Patient sedated 78-year-old male who sustained a ground-level fall and has a displaced left?hip?femoral neck fracture.? pt was seen eval in the emergency department admitted and found to have this fracture.? Orthopedics was consulted.? At this point in time patient able to have full understanding of his diagnosis as far as his fracture and treatment options as far as nonoperative and operative invention. He is familiar with this particular he given he has had his right hip hemiarthroplasty performed in 2022. We talked about the risks benefits complication alternatives with surgery.? Risk of surgery include but are not limited to make it better make it worse injury to nerves vessels or tendons blood clot, heart attack, stroke, on the table, infection,?hip?instability, periprosthetic fracture.? Understanding risk of surgery patient understands and agrees with current?plan.? All questions have been answered at this time.? Through shared decision-making patient elects to proceed with surgical intervention for a left?hip?hemiarthroplasty.? Given this displacement I do not feel as though this would be a good option for fixing this and a hip hemiarthroplasty would be the most ideal option in order for earlier mobilization as well as pain control. Understanding this he elects to proceed. Will be medically optimized today with plan for surgery tomorrow morning. Patient understands and agrees with current plan. All questions answered. Discussed with patient and he allegedly as no family to contact when I asked if he had any family if he would like me to contact. Will proceed to the OR tomorrow. Coding Level of Care Code Acute Code for Chg Fwd Diagnoses Closed hip fracture S72.002A Encounter type: initial encounter Laterality: left
--- NOTE | 2024-03-15 14:20 | ECG_ITS ---
[facility] 2024[facility]15 Pat Name: Yordan Cali Department: Room: 260 Gender: Male [employer] Supervisor: : 1945 Requested By: Paz Kumar Order Number: [id number] Nadia MD: Jose Bridges M.D. Measurements Intervals [place] Rate: 74 P: 48 MO: 199 QRS: 27 QRSD: 102 T: 47 QT: 422 QTc: 470 Interpretive Statements SINUS RHYTHM Compared to ECG 03/15/2024 10:57:45 First degree AV block no longer present Electronically Signed On 03-20-2024 22:27:01 COMM[employer]ITY [employer]ICE [employer]ATION DIRECTOR by Jose Bridges M.D. [email or web address]
[2024-03-15 15:03] LABS: Estmated Average Glucose 123; Hemoglobin A1C 5.9 % (4.0-6.0)
--- NOTE | 2024-03-15 15:07 | PC.NURSE ---
This nurse took report from VIKTORIA Bates in ER at 1505.
[2024-03-15 15:12] LABS: NT Pro B Type Natriuretic Pept 102 pg/mL (0-450); Thyroid Stimulating Hormone 2.04 uIU/mL (0.27-4.20)
[2024-03-15 15:16] LABS: Bilirubin Urine Negative (Negative); Blood Urine Negative (Negative); Glucose Urine UA 3+ (Normal); Ketones Urine Negative (Negative); Leukocyte Esterase Urine Negative (Negative); Nitrate Urine Negative (Negative); Protein Urine Trace (Negative); Specific Gravity, Urine 1.022 (1.005-1.030); Urine Appearance Clear (CLEAR); Urine Color Yellow (Yellow); Urobilinogen Urine 0.2 mg/dL (Negative)
[2024-03-15 15:18] LABS: Bacteria Urine None Seen /hpf; RBC Urine 0-2 /hpf (0-2); Squamous Epithelial Cell Urine 0-5 /hpf (0-5); WBC Urine 0-5 /hpf (0-5)
--- NOTE | 2024-03-15 16:41 | PC.NURSE ---
Pt transferred from ER to Med Surg, room 260, via [facility] at 1640. Pt accompanied by VIKTORIA Bates. This nurse assumed care of pt at this time.
[2024-03-15] MEDS: heparin 5,000 unit/mL INJ 1 mL 5000 UNIT SUBCUT (17:31)
[2024-03-15] MEDS: BuSPIRONE 10 mg Tablet 15 MG PO (17:31)
[2024-03-15] MEDS: sodium chloride 0.9% 1,000 ML 75 ML IV (17:31)
[2024-03-15] MEDS: TRAMadol 50 mg Tablet PO (20:14)
[2024-03-15] MEDS: donepezil 5 MG Tablet 10 MG PO (20:14)
[2024-03-15] MEDS: atorvastatin 40 mg Tablet 80 MG PO (20:14)
[2024-03-15] MEDS: OLANZapine 10 mg TABLET 15 MG PO (22:08)
[2024-03-15] MEDS: trazodone 100 mg Tablet PO (22:09)
[2024-03-16] VITALS (21 sets, daily range): BP systolic 103–158; BP diastolic 63–89; PULSE 75–89; RESP 14–22; TEMP 36.5–37.6; O2SAT 88–95
[2024-03-16] MEDS: heparin 5,000 unit/mL INJ 1 mL 5000 UNIT SUBCUT ×2 (01:51→14:06)
[2024-03-16] MEDS: morphine 4 mg/mL SDV 1 mL IVP ×2 (02:28→08:03)
[2024-03-16 03:35] LABS: Basophils % 0.3 %; Eosinophils # 0.1 10^3/uL (0.0-0.8); Eosinophils % 1.1 %; Hematocrit 46.8 % (37-53); Lymphocytes # 1.1 10^3/uL (0.8-4.8); Lymphocytes % 10.5 %; Mean Corpuscular HGB Conc 33.1 g/dL (30-55); Mean Corpuscular Volume 93.6 fl (82-101); Mean Platelet Volume 10.7 fL (7.4-10.4); Monocytes # 0.8 10^3/uL (0.2-0.9); Monocytes % 7.7 %; Neutrophils # 8.24 10^3/uL (1.8-7.7); Neutrophils % 80.1 %; Nucleated Red Blood Cells % 0 %; Platelet Count 128 10^3/cmm (157-399); Red Cell Distribution Width 12.8 % (12.1-15.1); White Blood Count 10.28 10^3/uL (3.29-11.43)
[2024-03-16 04:00] LABS: Alanine Aminotransferase 40 U/L (0-41); Alkaline Phosphatase 76 U/L (40-130); Anion Gap 14.9 (5-19); Aspartate Amino Transferase 29 U/L (0-40); Blood Urea Nitrogen 18 mg/dL (8-23); Calcium 8.9 mg/dL (8.5-10.5); Carbon Dioxide 26 mmol/L (22-29); Chloride 105 mmol/L (98-107); Creatinine Clr Calc Pharmacy 77.1475; Globulin 2.5 g/dL (1.3-4.6); Glucose 196 mg/dL (65-115); Osmolality Calculated 301 mOsm/kg (285-295); Potassium 3.9 mmol/L (3.5-5.1); Sodium 142 mmol/L (136-145); Total Bilirubin 0.5 mg/dL (0.15-1.2); Total Protein 6.5 g/dL (6.6-8.7)
[2024-03-16 04:43] LABS: INR 1.15 (0.8-1.2)
[2024-03-16] MEDS: sodium chloride 0.9% 1,000 ML 75 ML IV (05:46)
--- NOTE | 2024-03-16 08:36 | CTR_ITS ---
PROCEDURE INFORMATION: Exam: CTA Chest With Contrast Exam date and time: 03/16/2024 9:12 AM Age: 78 years old Clinical indication: Shortness of breath; Additional info: Hip fracture, R/O pe TECHNIQUE: Imaging protocol: Computed tomographic angiography of the chest with contrast. Exam focused on the arteries. 3D rendering (Not supervised by radiologist): MIP and/or 3D reconstructed images were created by the technologist. Radiation optimization: All CT scans at this facility use at least one of these dose optimization techniques: automated exposure control; mA and/or kV adjustment per patient size (includes targeted exams where dose is matched to clinical indication); or iterative reconstruction. Contrast material: OMNI 350; Contrast volume: 100 ml; Contrast route: INTRAVENOUS (IV); COMPARISON: CR (CHEST, ) 03/15/2024 11:42 AM RADIATION DOSE METRICS: Total DLP (mGy-cm): 416.05 FINDINGS: Pulmonary arteries: Normal. No pulmonary emboli. Aorta: The thoracic aorta is normal in caliber without aneurysm or dissection. There is calcified plaque involving the aorta and coronary vessels. Lungs: There is dependent airspace disease bilaterally. Findings are felt in part be related to atelectasis. A component of dependent pneumonia can not be excluded. There is bronchial wall thickening involving the lower lobe bronchi bilaterally. There is airspace disease involving the lingula which could also represent atelectasis or pneumonia. No definite lung nodules or masses are appreciated. Pleural spaces: There are trace pleural effusions. Heart: Unremarkable. No cardiomegaly. No pericardial effusion. Lymph nodes: Unremarkable. No enlarged lymph nodes. Diaphragm: There may be a small hiatal hernia. Bones/joints: Unremarkable. No acute fracture. Soft tissues: Unremarkable. CT/CT angio chest PE protcl [id number] IMPRESSION: 1. Trace pleural effusions. 2. Dependent airspace disease bilaterally. There is also airspace disease involving the lingula. Findings are felt in part be related to atelectasis. A component of pneumonia can not be excluded.
[2024-03-16] MEDS: iohexol 350 mg/mL 500 mL Btl (per mL) IV (09:19)
--- NOTE | 2024-03-16 09:46 | P.HPUD_ITS ---
Surgery/Procedure H&P Update DATE OF PROCEDURE: March 16, 2024 DATE H&P PERFORMED: 03/15/24 H&P UPDATE INFORMATION: I have reviewed H&P completed within last 30 days, I have examined patient prior to procedure and No changes to prior documentation CHANGES TO PREVIOUS DOCUMENTATION: Consent was reviewed and signed patient needed to have a slight unsteady hand so we did verbalize his consent as well with nurses witness. Patient understands risk benefits complication alternatives surgery and through shared decision- making elects proceed with surgical intervention. All questions answered at this time. PREOP DIAGNOSIS: L hip fem neck fracture PRIMARY INDICATION FOR PROCEDURE: Left hip femoral neck fracture displaced PLANNED PROCEDURE: Operation Date: 03/16/24 10:30 Proposed Procedures p Hemiarthroplasty Hip(Left) - John Phillips DO
[2024-03-16] MEDS: acetaminophen 1,000 MG/100 ML PIGGYBACK 400 MG IV (09:51)
--- NOTE | 2024-03-16 09:55 | P.ANESASSM_ITS ---
Pre-Anesthetic Assessment Height/Weight: Height 1.73 m Weight 86.183 kg Temp Pulse Resp BP Pulse Ox O2 Del Method O2 Flow Rate 98.0 F 85 18 140/69 90 Nasal Cannula 3 03/16/24 09:30 03/16/24 09:30 03/16/24 09:30 03/16/24 09:30 03/16/24 09:30 03/16/24 09:30 03/16/24 09:30 Preop Diagnosis: L hip fem neck fracture Operation Date: 03/16/24 10:30 Proposed Procedures p Hemiarthroplasty Hip(Left) - John Phillips DO Familial anesthetic complications: none Was Beta Karen taken within 24 hours: N/A Was Clonidine taken within 24 hours: N/A Last intake: Intake Last Liquid Date 03/15/24 Last Liquid Time 23:00 Last Solid Date 03/15/24 Social Tobacco (chews) and No alcohol Exam alert, oriented x 3, clear to auscultation bilaterally and regular rate & rhythm Airway Dentition: other (poor dentition) Comments: Comments: hx alcohol abuse Pulmonary Dependent atlectasis w/ associated trace pleural effusions - O2 sat 90% on 3 L NC CV/HEM Hypertension GI Gastroesophageal Reflux Disease Metabolic Diabetes Mellitus and Hyperlipidemia Anesthetic Plan ASA status: 4 Anesthesia: General Other: semaglutide Risk of > 500 ml blood loss (7ml/kg in children): No Medications/Allergies Home Medications Medication Instructions Recorded Confirmed Last Taken Type acetaminophen 500 mg tablet 500 - 1,000 mg PO Q6H PRN Pain 02/21/19 03/15/24 Unknown History (Tylenol Extra Strength) carvedilol 25 mg tablet (Coreg) 25 mg PO BID@02/21/19 03/15/24 03/14/24 History celecoxib 200 mg capsule (Celebrex) 200 mg PO BID@02/21/19 03/15/24 03/14/24 History fluticasone propionate 50 1 spray intranasal DAILY@02/21/19 03/15/24 03/14/24 History mcg/actuation nasal spray,suspension (Flonase Allergy Relief) irbesartan 300 mg tablet 300 mg PO DAILY@02/21/19 03/15/24 03/14/24 History magnesium hydroxide 400 mg/5 mL See Rx Instructions .Route .COMPLEX 02/21/19 03/15/24 Unknown History oral suspension (Milk of Magnesia) metformin 500 mg tablet,extended 500 mg PO BID@02/21/19 03/15/24 03/14/24 History release 24 hr omeprazole 40 mg capsule,delayed 40 mg PO DAILY@07 02/21/19 03/15/24 03/14/24 History release polyethylene glycol 3350 17 17 gm PO EVERY OTHER DAY 02/21/19 03/15/24 07/29/19 History gram/dose oral powder (Miralax) rosuvastatin 40 mg tablet (Crestor) 40 mg PO BEDTIME@02/21/19 03/15/24 03/14/24 20:00 History sitagliptin phosphate 100 mg 100 mg PO DAILY@02/21/19 03/15/24 03/14/24 History tablet (Januvia) empagliflozin 25 mg tablet 25 mg PO DAILY@09/08/21 03/15/24 03/14/24 History (Jardiance) amlodipine 10 mg tablet 10 mg PO DAILY@06/13/22 03/15/24 03/14/24 History cetirizine 10 mg tablet 10 mg PO BEDTIME@06/13/22 03/15/24 03/14/24 20:00 History menthol 2.7 mg lozenges (Cough See Rx Instructions .Route .COMPLEX 06/13/22 03/15/24 Unknown History Drops) semaglutide 0.25 mg or 0.5 mg (2 0.5 mg SUBCUT Q7D 06/13/22 03/15/24 03/14/24 History mg/3 mL) subcutaneous pen injector (Ozempic) tramadol 50 mg tablet 50 mg PO TID@07,,06/13/22 03/15/24 03/14/24 History vitamin A and D See Rx Instructions .Route .COMPLEX 06/13/22 03/15/24 Unknown History buspirone 15 mg tablet See Rx Instructions .Route 12/03/23 03/15/24 03/14/24 Rx .COMPLEX #90 tabs sertraline 100 mg tablet 200 mg (2 x 100 mg) PO DAILY@07 01/04/24 03/15/24 03/14/24 Rx #60 tabs trazodone 100 mg tablet See Rx Instructions .Route 01/04/24 03/15/24 03/14/24 20:00 Rx .COMPLEX #30 tabs donepezil 10 mg tablet (Aricept) 10 mg PO BEDTIME@20 #30 tabs 02/08/24 03/15/24 03/14/24 20:00 Rx benztropine 1 mg tablet See Rx Instructions .Route 02/28/24 03/15/24 03/14/24 Rx .COMPLEX #60 tabs albuterol sulfate 90 mcg/actuation 1 puff inhalation QID PRN 03/15/24 03/15/24 Unknown History aerosol inhaler Shortness Of Breath Or Wheezing ferrous sulfate 325 mg (65 mg 325 mg PO DAILY 03/15/24 03/15/24 03/14/24 History iron) tablet fluticasone furoate 100 1 inh inhalation DAILY 03/15/24 03/15/24 03/14/24 History mcg-vilanterol 25 mcg/dose inhalation powder (Breo Ellipta) olanzapine 15 mg tablet 15 mg PO BEDTIME 03/15/24 03/15/24 03/14/24 20:00 History Allergies Allergy/AdvReac Type Severity Reaction Status Date / Time diphenhydramine Allergy Unknown Verified 01/17/24 11:27 [From Benadryl] lithium Allergy Unknown Verified 01/17/24 11:27 Penicillins Allergy Unknown Verified 01/17/24 11:27 Sulfa (Sulfonamide Allergy Unknown Verified 01/17/24 11:27 Antibiotics) Current Medications Generic Name Dose Route Start Last Admin Trade Name Freq PRN Reason Stop Dose Admin Amlodipine Besylate 10 mg 03/16/24 07:00 03/16/24 06:28 Amlodipine 10 Mg Tablet PO Not Given DAILY@07 [facility] Atorvastatin Calcium 80 mg 03/15/24 20:00 03/15/24 20:14 Atorvastatin 40 Mg Tablet PO 80 mg BEDTIME@20 FRANSISCA Administration Buspirone HCl 15 mg 03/15/24 17:00 03/16/24 06:28 Buspirone 10 Mg Tablet PO Not Given 0700,1200,1700 [facility] Donepezil HCl 10 mg 03/15/24 20:00 03/15/24 20:14 Donepezil 5 Mg Tablet PO 10 mg BEDTIME@20 FRANSISCA Administration Heparin Sodium (Porcine) 5,000 unit 03/15/24 14:30 03/16/24 01:51 Heparin 5,000 Unit/Ml Inj 1 Ml SUBCUT 5,000 unit Q12H FRANSISCA Administration Morphine Sulfate 4 mg 03/15/24 19:20 03/16/24 08:03 Morphine 4 Mg/Ml Sdv 1 Ml IVP 4 mg Q6H PRN Administration [facility] Olanzapine 15 mg 03/15/24 21:00 03/15/24 22:08 Olanzapine 10 Mg Tablet PO 15 mg BEDTIME FRANSISCA Administration Pantoprazole Sodium 40 mg 03/16/24 09:00 03/16/24 07:[address] 40 Mg Tablet PO Not Given DAILY FRANSISCA Pantoprazole Sodium 40 mg 03/16/24 07:00 03/16/24 06:[address] 40 Mg Tablet PO Not Given DAILY@07 FRANSISCA Sertraline HCl 200 mg 03/16/24 07:00 03/16/24 06:28 Sertraline 100 Mg Tablet PO Not Given DAILY@07 FRANSISCA Tramadol HCl 50 mg 03/15/24 20:00 03/16/24 06:28 Tramadol 50 Mg Tablet PO Not Given TID@07,12,20 FRANSISCA Trazodone HCl 100 mg 03/15/24 21:00 03/15/24 22:09 Trazodone 100 Mg Tablet PO 100 mg BEDTIME FRANSISCA Administration [facility] Anesthesia Medical History Alcohol dependence, in remission Diabetes mellitus Dyskinesia, tardive Hypertension Nicotine dependence, chewing tobacco, uncomplicated Psychiatric care Schizoaffective disorder, bipolar type Social History Smoking and tobacco/nicotine status: current every day tobacco/nicotine user cigars and smokeless tobacco Smokeless tobacco user: chewing tobacco Data Anesthesia 03/16/24 02:59 03/16/24 02:59 Short CBC 03/15/24 03/16/24 Range/Units 09:54 02:59 WBC 13.82 H 10.28 (3.29-11.43) 10^3/uL Hgb 17.80 H 15.50 (11.27-16.99) g/dL Hct 52.1 46.8 (37-53) % MCV 92.0 93.6 (82-101) fl Plt Count 135 L 128 L (157-399) 10^3/cmm Neut % (Auto) 86.7 80.1 % Neut # (Auto) 11.97 H 8.24 H (1.8-7.7) 10^3/uL BMP 03/15/24 03/16/24 09:54 02:59 Sodium 140 142 Potassium 4.0 3.9 Chloride 100 105 Carbon Dioxide 31 H 26 BUN 13 18 Creatinine 0.7 0.8 Glucose 137 H 196 H Calcium 9.6 8.9 Cardiac Enzymes 03/15/24 Range/Units 09:54 NT-Pro-B Natriuret Pep 102 (0-450) pg/mL Liver Function 03/15/24 03/16/24 Range/Units 09:54 02:59 Total Bilirubin 0.6 0.5 (0.15-1.2) mg/dL AST 48 H 29 (0-40) U/L ALT 59 H 40 (0-41) U/L Alkaline Phosphatase 100 76 (40-130) U/L Albumin 4.8 4.0 (3.5-5.2) g/dL Urine 03/15/24 Range/Units 14:59 Urine Color Yellow (Yellow) Urine Appearance Clear (CLEAR) Urine pH 7.0 (5-7) Ur Specific [place] 1.022 (1.005-1.030) Urine Protein Trace A (Negative) Urine Glucose (UA) 3+ H (Normal) Urine Ketones Negative (Negative) Urine Nitrate Negative (Negative) Urine Bilirubin Negative (Negative) Ur Leukocyte Esterase Negative (Negative) Urine RBC 0-2 (0-2) /hpf Urine WBC 0-5 (0-5) /hpf COVID Results 03/15/24 10:45 Coronavirus (PCR) Negative Coags 03/15/24 03/16/24 09:54 02:59 PT 14.60 15.50 H INR 1.07 1.15 APTT 28.3 Cardiac Studies: 2 No Data to Display
[2024-03-16] MEDS: clindamycin 600 MG/50 ML PREMIX 100 MG IV (10:04)
[2024-03-16] MEDS: tranexamic acid 1,000 mg/10mL SDV 1000 MG IV (10:35)
[2024-03-16] MEDS: VANCOMYCIN ADD-Vantage 1,000 MG VIAL 1000 MG XX (11:04)
--- NOTE | 2024-03-16 11:42 | P.BOP_ITS ---
Date of Procedure: 03/16/2024 Surgeon: John Phillips DO English Professor(s): Pritesh Phillips PA-C Procedure(s) performed: Left hip hemiarthroplasty Findings of the procedure(s): Patient found to have left hip displaced femoral neck fracture underwent procedure as planned without issues or complications. Estimated blood loss: 125 mL Specimen(s) removed: Femoral head removed Post-operative diagnosis: Left hip displaced femoral neck fracture
--- NOTE | 2024-03-16 11:43 | P.OP_ITS ---
Operative Report Date of procedure: March 16, 2024 Surgeon: John Phillips DO Senior Applications Developer: Pritesh Phillips PA-C: PA was necessary for assistance in this case with leg positioning retraction and protection of neurovascular structures as well as assistance in implantation wound closure and dressing application. Procedure: Preoperative diagnosis: Left hip displaced femoral neck fracture post-op diagnosis: Same Procedure done: Left hip?hemiarthroplasty Implants: Delvin insignia standard offset femoral stem size 5 Bipolar head 51 mm Femoral head +4 mm offset Surgeon: John Phillips DO Estimated blood loss: 125 mL IV fluids: See anesthesia record Urine output: See anesthesia record Complications: None Findings: See operative report Condition: stable Disposition: floor Brief History: Patient was seen in the emergency department and subsequently admitted after fall.? Patient sustained a left displaced femoral neck fracture.? Patient was dickinson bsequently admitted by the hospitalist team for medical management and optimization and the orthopedic surgery team was consulted for evaluation and treatment recommendations.? At that point time discussed with patient? treatment options.? We talked about nonoperative versus operative intervention talked about the risk benefits complication alternatives to surgical nonsurgical treatment options.? Risks of surgery were discussed and patient understands and agrees to proceed with procedure.? At this point time would recommend a left?hip?hemiarthroplasty.? This will offer patient pain control as well as early weightbearing.? Patient was medically optimized by the primary team patient brought to the preoperative holding area. ? Patient understands risk benefits complication alternatives with surgical nonsurgical treatment options.? At this point time elects to proceed with left?hip?hemiarthroplasty.? All questions answered.? Patient understands agrees with current plan.? All questions answered. Procedure: Patient seen evaluated the preoperative holding area.? Consent was reviewed and signed with patient.? ?Pt was seen evaluated by the anesthesia department.? Once cleared for surgery patient patient was taken back to the operative suite.? Patient was then transported onto the OR table.? pt underwent anesthesia per the anesthesia department.? Once appropriately anesthetized patient was then positioned in lateral decubitus position with the left?hip?up.? Patient was placed on a pegboard appropriately secured to the bed all bony prominences well- padded.? Next the left lower extremity was then prepped and draped in sterile orthopedic fashion.? Final timeout performed.? Patient received appropriate preoperative antibiotics. A standard posterolateral approach was then made over the lateral aspect of the?hip.? Sharp scalpel incision was made through skin and subcutaneous tissue I then utilized a Vasquez elevator to mobilize over the fascia.? The fascia was then split longitudinally with electrocautery.? Next a bursectomy was then performed.? I then placed Hohmann underneath the abductors.? The?hip?was placed under tension with internal rotation.? I then utilizing electrocautery performed a full-thickness release of the short external rotators and capsule in 1 full thick sleeve for lateral repair.? This was then taken down to the lesser trochanter.? Immediately on capsulotomy hematoma was noticed and displaced femoral neck fracture appreciated.? I then placed a Hohmann above and below the neck.? I then utilized an oscillating saw to freshen the cut this was roughly half of a fingerbreadth above the lesser as patient did fracture slightly lower on the neck.? Once this was performed this access was removed with rongeur.? ?I then utilized a corkscrew to remove the head.? This was then subsequently sized and measured to be a 51 mm head size.? I then thoroughly irrigated the acetabulum.? A Hohmann was placed anteriorly and thorough inspection of the acetabulum no significant arthritic changes were noted.? I then utilized a rongeur and Bovie to remove the pulvinar.? Once this was performed I then subsequently took my trial 51 mm head and trialed this which had excellent fit and appropriate suction fit noted.? This was then subsequently removed. Once this was performed I irrigated the socket and then turned my attention towards the femoral preparation.? I utilized Bovie and rongeur to remove the soft tissue off of the saddle.? Once this was done a box osteotome followed by a canal finder and? lateralizing rattail rasp was used to appropriately late ralized in the canal.? Patient had good cortices to accommodate press-fit fixation we also choose press-fit noncemented since patient was having nasal cannula 3 L at baseline preoperative to surgery since he has been hospitalized to keep him optimized. Next I then subsequently broached to a size 5 insignia standard offset. [place] femoral stem which had appropriate fixation.? I was able to trial with this and this appeared to be appropriate length with ability to add slight offset if needed after the final stem exam.? The femoral stem size 5 was then impacted in place with appropriate anteversion and had excellent fixation. Excellent rotational stability at this point in time I then trialed up to a +4 mm neck length on a 51 mm head. This had excellent leg lengths as well as appropriate shuck, and excellent stability in all planes of motion with no evidence of instability.? At this point this was determined to being my final femoral head size.? This was subsequently dislocated the trial head was then removed the final implant of bipolar head 51 mm with a +4 mm offset was then opened.? The trunnion was then cleaned and dried and this was impacted in place with excellent fixation.? I then reduced the?hip?this had excellent stability and appropriate leg lengths.? The wound bed was then thoroughly irrigated.? I then utilizing #5 Ethibond suture performed my repair of the capsule and short external rotators through bone tunnels.? ?Wound bed was then thoroughly irrigated,1 gram vanco powder placed in wound bed.? IT band was closed with strata fix suture and the deep subcutaneous and subcutaneous layers were closed with 0 strata fix and 2-0 strata fix.? Skin was then closed reapproximated with roxie.? Silverlon dressing applied.? Patient placed in abduction pillow posterior?hip?precautions.? pt? was awakened from anesthesia and taken to PACU in stable condition Disposition: Patient taken to PACU in stable condition will receive appropriate discharge directions as well as pain medication DVT prophylaxis postoperatively.? Patient? will return to the floor postoperatively.? Patient will be weightbearing as tolerated to the left lower extremity.? Posterior?hip?precautions. Abduction pillow in place.? DVT prophylaxis, pain medication, postoperative antibiotics and TXA.? Patient will work with PT/OT and discharge services for discharge planning.? Patient understands agrees with current plan.? All questions answered.? ?patient will? see me in the office in 2 weeks.
--- NOTE | 2024-03-16 11:53 | XRR_ITS ---
PROCEDURE INFORMATION: Exam: XR Left Hip Exam date and time: 03/16/2024 12:01 PM Age: 78 years old Clinical indication: Injury or trauma; Fall; Fracture of pelvis & hip; Left; Traumatic fracture; Neck of femur; Closed fracture; Prior surgery; Surgery date: Post-operative (0-2 days); Surgery type: Carlos; Additional info: Post op left hip carlos, do in pacu TECHNIQUE: Imaging protocol: Radiologic exam of the left hip. Views: 2 or 3 views hip with pelvis when performed. COMPARISON: CR XR pelvis 1-2V* [id number] 03/15/2024 11:47 AM FINDINGS: Tubes, catheters and devices: Catheter in the bladder. Bones/joints: Post left hemiarthroplasty with anatomic alignment and no hardware complications. Soft tissues: Expected soft tissue emphysema and skin roxie, postop. XR/XR hip LT 2-3V wo/w pel* [id number] IMPRESSION: Post left hip hemiarthroplasty with no immediate complications.
--- NOTE | 2024-03-16 12:09 | PM.PACU ---
PACU note Narrative: Patient is an 78-year-old male who just underwent a left hip hemiarthroplasty. Pt transferred to PACU in stable condition. Dressing is dry. pt is awake and alert. pt can wiggle toes and plantarflex and dorsiflex foot. Distal pulses are palpable toes are warm and well-perfused. Cap refill is normal and under 2 seconds. Sensation to foot is intact. Pain is controlled. Exam: awake Disposition: back to floor
--- NOTE | 2024-03-16 12:22 | ANE.PACU2 ---
Inpatient post-anesthesia follow up: Airway intact: Yes Vital signs: Temperature 98.4 F Pulse Rate 79 Respiratory Rate 18 Blood Pressure 146/74 Pulse Oximetry 91 Oxygen Delivery Me thod Nasal Cannula Oxygen Flow Rate 4 Fraction of Inspir ed Oxygen Hydration adequate: Yes Nausea and vomiting: No Pain level: 1 Mental status: Baseline
--- NOTE | 2024-03-16 13:31 | P.PN_ITS ---
Vitals/I&O/Wt Last Vital Signs Temp 98.4 F 03/16/24 12:33 Pulse 79 03/16/24 12:33 Resp 18 03/16/24 12:33 BP 146/74 03/16/24 12:33 Pulse Ox 91 03/16/24 12:33 O2 Del Method Nasal Cannula 03/16/24 12:33 O2 Flow Rate 4 03/16/24 12:18 03/15/24 03/16/24 03/16/24 22:59 06:59 14:59 Intake Total 350 / 350 918.75 / 1268.75 250 / 250 Output Total 425 / 825 825 / 825 Balance -75 / -475 918.75 / 443.75 -575 / -575 Weight last 48 hrs Weight 86.183 kg Weight 82.554 kg Weight 82.554 kg Physical Exam 2 Narrative: General: Seen in PACU status post hip surgery. Currently on 2 L nasal cannula. Awake and alert. HEENT: Normocephalic, atraumatic, EOMI,. Cardio: Regular rate rhythm, normal S1-S2, Respiratory: Mainly clear to auscultation bilaterally no wheezes no rhonchi. GI: Abdomen soft, nontender, nondistended, bowel sounds + Extremities: Surgical site not examined. Patient is immediately status post surgery at this time. Urinary Catheter Management: Jurado: Cath Placed During This Visit: yes Urinary Catheter Date of Insertion: 03/16/24 Urinary Catheter Time of Insertion: 10:30 Data 03/16/24 02:59 03/16/24 02:59 A&P Assessment and plan (1) Schizoaffective disorder, bipolar type: (2) Hypertension: (3) Diabetes mellitus: (4) Closed hip fracture: Qualifiers: Encounter type: initial encounter Laterality: left Qualified Code(s): S72.002A - Fracture of unspecified part of neck of left femur, initial encounter for closed fracture (5) Dyskinesia, tardive: (6) Nicotine dependence, chewing tobacco, uncomplicated: (7) History of alcohol abuse: (8) First degree AV block: Plan #Left hip fracture #Hypertension #Schizoaffective disorder #Lives at assisted living facility #Bilateral atelectasis #New oxygen requirement #New first-degree AV block ? Continue amlodipine, buspirone, donepezil, olanzapine, rosuvastatin, sertraline, trazodone ? Hold Coreg at this time secondary to first-degree AV block on one of the EKGs. ? Continue to monitor on telemetry at this time ? Patient denies any chest pain or shortness of breath. Oxygen requirement may be secondary to atelectasis?. ? Will check CTA chest to rule out PE. ? White count slightly elevated most likely reactive. ? Patient does have polycythemia most likely secondary to smoking use versus dehydration at this time. ? Will start gentle fluid hydration normal saline 75 cc/h ? BNP normal 102. Do not suspect heart failure at this time. ? He does complain of dizziness and has had a fall recently. He states that other times also his legs give out. Possibly secondary to polypharmacy? Versus underlying heart block.? ? Patient will be n.p.o. at midnight. Plan for surgical intervention in AM. Dr. Phillips consulted. ? Order incentive spirometer and flutter valve for patient. DVT prophylaxis: Heparin SQ twice daily Full code 03/16/2024 Patient is status post partial hip replacement ? Continue to hold Coreg at this time. Continue to monitor on telemetry. Did have an AV block on EKG at admission. CTA chest ruled out PE however patient has significant atelectasis bilateral bases and is requiring 3 L nasal cannula and does have bilateral pleural effusions. ? Order incentive spirometer flutter valve status post surgery. ? White count most likely reactive which has normalized at this point. BNP 102. Do not suspect heart failure. ? Orthopedic surgery consulted appreciate recommendations ? Continue sertraline, rosuvastatin, olanzapine, ferrous sulfate, donepezil, buspirone, amlodipine. ? If blood pressure permits may gradually restart irbesartan from home. ?Will order physical therapy occupational therapy. [facility] Medical Necessity Statement*: Greater than 2 midnight stay at this time for management of hip fracture. Diagnoses Schizoaffective disorder, bipolar type F25.0 Hypertension I10 Diabetes mellitus E11.9 Closed hip fracture S72.002A Encounter type: initial encounter Laterality: left Dyskinesia, tardive G24.01 Nicotine dependence, chewing tobacco, uncomplicated F17.220 History of alcohol abuse F10.11 First degree AV block I44.0
[2024-03-16] MEDS: TRAMadol 50 mg Tablet PO ×2 (14:06→20:23)
[2024-03-16] MEDS: BuSPIRONE 10 mg Tablet 15 MG PO ×2 (14:06→17:02)
[2024-03-16] MEDS: chlorhexidine gluconate 0.12% Btl 473 mL 30 ML MUCOUS MEM ×3 (14:06→20:24)
[2024-03-16] MEDS: ketorolac 30 mg/mL INJ 15 MG IVP (16:46)
[2024-03-16] MEDS: tranexamic acid 1,000 MG/100 ML PREMIX 600 MG IV (16:46)
[2024-03-16] MEDS: calcium carb-vit d 600mg/400unit 1 Tablet 1 EACH PO (16:50)
[2024-03-16] MEDS: iron polysaccharide complex 150 mg Capsule PO (16:50)
[2024-03-16] MEDS: sennosides-docusate Tablet 2 TAB PO (16:50)
[2024-03-16] MEDS: mupirocin oint 22 gm 1 APPLIC NASAL (16:50)
[2024-03-16] MEDS: ceFAZolin 2,000 MG in sodium chloride 0.9% (plus) 50 ML 100 MG IV (16:51)
[2024-03-16 19:41] LABS: Basophils % 0.2 %; Hematocrit 42.2 % (37-53); Lymphocytes % 7.6 %; Mean Corpuscular HGB Conc 32.7 g/dL (30-55); Mean Corpuscular Hemoglobin 31.2 pg (27-33); Mean Corpuscular Volume 95.5 fl (82-101); Mean Platelet Volume 10.3 fL (7.4-10.4); Monocytes # 0.8 10^3/uL (0.2-0.9); Monocytes % 6.3 %; Neutrophils # 11.03 10^3/uL (1.8-7.7); Neutrophils % 85.4 %; Nucleated Red Blood Cells % 0 %; Platelet Count 130 10^3/cmm (157-399); Red Blood Count 4.42 10^6/uL (3.85-5.65); White Blood Count 12.92 10^3/uL (3.29-11.43)
[2024-03-16] MEDS: trazodone 100 mg Tablet PO (20:23)
[2024-03-16] MEDS: atorvastatin 40 mg Tablet 80 MG PO (20:23)
[2024-03-16] MEDS: donepezil 5 MG Tablet 10 MG PO (20:23)
[2024-03-16] MEDS: OLANZapine 10 mg TABLET 15 MG PO (20:24)
[2024-03-16 21:48] LABS: Glucose Point of Care 240 mg/dL (70-110)
[2024-03-17] VITALS (12 sets, daily range): BP systolic 106–131; BP diastolic 58–81; PULSE 73–98; RESP 15–20; TEMP 36.7–37.6; O2SAT 90–95
[2024-03-17] MEDS: ketorolac 30 mg/mL INJ 15 MG IVP (00:23)
[2024-03-17] MEDS: morphine 4 mg/mL SDV 1 mL IVP (00:24)
[2024-03-17] MEDS: ceFAZolin 2,000 MG in sodium chloride 0.9% (plus) 50 ML 100 MG IV ×2 (01:51→10:02)
[2024-03-17] MEDS: heparin 5,000 unit/mL INJ 1 mL 5000 UNIT SUBCUT ×2 (01:52→15:44)
[2024-03-17 04:48] LABS: Basophils % 0.2 %; Eosinophils % 0.1 %; Hematocrit 40.3 % (37-53); Lymphocytes # 1.4 10^3/uL (0.8-4.8); Lymphocytes % 10.4 %; Mean Platelet Volume 10.2 fL (7.4-10.4); Monocytes # 1.3 10^3/uL (0.2-0.9); Monocytes % 9.8 %; Neutrophils # 10.28 10^3/uL (1.8-7.7); Nucleated Red Blood Cells % 0 %; Platelet Count 117 10^3/cmm (157-399); Red Blood Count 4.03 10^6/uL (3.85-5.65); Red Cell Distribution Width 13.1 % (12.1-15.1)
[2024-03-17 05:10] LABS: Anion Gap 14.4 (5-19); Blood Urea Nitrogen 22 mg/dL (8-23); Calcium 8.8 mg/dL (8.5-10.5); Carbon Dioxide 25 mmol/L (22-29); Chloride 106 mmol/L (98-107); Creatinine Clr Calc Pharmacy 80.1146; Glucose 177 mg/dL (65-115); Osmolality Calculated 300 mOsm/kg (285-295); Potassium 4.4 mmol/L (3.5-5.1); Sodium 141 mmol/L (136-145)
[2024-03-17] MEDS: sertraline 100 mg Tablet 200 MG PO (06:07)
[2024-03-17] MEDS: TRAMadol 50 mg Tablet PO ×3 (06:07→21:14)
[2024-03-17] MEDS: BuSPIRONE 10 mg Tablet 15 MG PO ×3 (06:07→18:44)
[2024-03-17] MEDS: amlodipine 10 mg Tablet PO (06:08)
[2024-03-17] MEDS: pantoprazole DR 40 mg Tablet PO (06:08)
[2024-03-17] MEDS: ipratropium-albuterol 3 mL Neb INHALATION ×2 (08:03→19:35)
[2024-03-17] MEDS: sennosides-docusate Tablet 2 TAB PO ×2 (10:02→18:44)
[2024-03-17] MEDS: polyethylene glycol 3350 Pkt 17 gm PO (10:03)
[2024-03-17] MEDS: chlorhexidine gluconate 0.12% Btl 473 mL 30 ML MUCOUS MEM ×4 (10:03→21:15)
[2024-03-17] MEDS: iron polysaccharide complex 150 mg Capsule PO ×2 (10:03→18:45)
[2024-03-17] MEDS: mupirocin oint 22 gm 1 APPLIC NASAL ×2 (10:03→18:45)
[2024-03-17] MEDS: calcium carb-vit d 600mg/400unit 1 Tablet 1 EACH PO ×2 (10:03→18:44)
[2024-03-17] MEDS: multivitamin therapeutic Tablet 1 TAB PO (10:04)
--- NOTE | 2024-03-17 12:51 | P.PN_ITS ---
<Statement entered by John Phillips DO - 03/21/24 23:34> Patient was seen and examined in addition to PA-C agree with PAs assessment and plan. At this point time patient is postoperative day 1 continue to work with therapy. Orthopedics will follow tomorrow. Patient understands agrees to current plan. All questions answered. John Phillips DO Ortho Surgery Subjective 2 Subjective: Patient is an 78-year-old male that is 1 day postop left hip hemiarthroplasty. Denies any acute events overnight. Denies any fevers. He has been able to eat drink and keep food and fluids down. Pain is controlled. He was able to get up with physical therapy and did some ambulating today with walker. Vitals/I&O/Wt Last Vital Signs Temp 98.0 F 03/17/24 12:00 Pulse 98 03/17/24 12:00 Resp 15 03/17/24 12:00 BP 118/78 03/17/24 12:00 Pulse Ox 90 03/17/24 12:00 O2 Del Method Nasal Cannula 03/17/24 12:00 O2 Flow Rate 4 03/17/24 08:05 03/16/24 03/17/24 03/17/24 22:59 06:59 14:59 Intake Total 250 / 1115 150 / 1265 356 / 356 Output Total 1200 / 2025 675 / 2700 Balance -950 / -910 -525 / -1435 356 / 356 Weight last 48 hrs Weight 197 lb 11.2 oz Weight 190 lb Weight 182 lb Physical Exam 2 Const: COMMON NORMALS: no acute distress and alert Resp: COMMON NORMALS: normal respiratory effort and No retractions Cardio: COMMON NORMALS: Peripheral pulses 2+ throughout PERIPHERAL PULSES: Peripheral pulses 2+ throughout Extremity: NARRATIVE EXTREMITY EXAM: Left leg?surgical dressing is dry and in place. Mild swelling around incision site but no ecchymosis noted. Compartments are soft and compressible. Patient able to wiggle toes and dorsiflex and plantarflex foot. It was too painful for him to try to lift his leg. Pedal pulse 2+. Patient had some mild pain in the left hip with logroll test. Neuro: SENSORIUM/ORIENTATION: Yes alert Skin: GENERAL SKIN EXAM: dry skin Urinary Catheter Management: Jurado: Cath Placed During This Visit: yes Reason for Continuing Indwelling Catheter: Perioperative Use in Selected Surgeries Urinary Catheter Date of Insertion: 03/16/24 Urinary Catheter Time of Insertion: 10:30 Data 03/17/24 04:20 03/17/24 04:20 A&P Assessment and plan (1) Closed hip fracture: Qualifiers: Encounter type: initial encounter Laterality: left Qualified Code(s): S72.002A - Fracture of unspecified part of neck of left femur, initial encounter for closed fracture Plan Plan: -Orthopedics consulted -Hospitalist admitted patient is primary -All imaging reviewed -Labs reviewed -Pain control -PT/OT -Weightbearing as tolerated to left leg -VTE prophylaxis per hospitalist Patient is 1 day postop left hip hemiarthroplasty. He is doing well and started physical therapy today. Continue PT/OT and we will follow-up with patient tomorrow. Attestations 2 Medical Necessity Statement*: Ongoing care for left hip fracture Coding Level of Care Code Acute Code for Chg Fwd Diagnoses Closed hip fracture S72.002A Encounter type: initial encounter Laterality: left
[2024-03-17 14:50] LABS: Iron 37 ug/dL (59-158); Total Iron Binding Capacity 230 mcg/dl; Unsaturated Iron Binding 193 ug/dL (112-347); Vitamin B12 348 pg/mL (232-1245)
--- NOTE | 2024-03-17 16:22 | PC.SOCIAL ---
IMM updated IMM dated and initialed, copy given to patient and copy placed in chart
--- NOTE | 2024-03-17 18:18 | P.PN_ITS ---
Subjective 2 Subjective: Hospital course, labs appreciated. Examination patient sitting up in chair. Worked with physical therapy. Requiring up to 3 L to maintain saturation of 92%. Denies any nausea, vomiting, headache. States pain is well-controlled for now. Vitals/I&O/Wt Last Vital Signs Temp 99.1 F 03/17/24 15:46 Pulse 88 03/17/24 15:46 Resp 16 03/17/24 15:46 BP 106/58 03/17/24 15:46 Pulse Ox 94 03/17/24 15:46 O2 Del Method Nasal Cannula 03/17/24 15:46 O2 Flow Rate 4 03/17/24 08:05 03/17/24 03/17/24 03/17/24 06:59 14:59 22:59 Intake Total 150 / 1265 596 / 596 240 / 836 Output Total 675 / 2700 100 / 100 Balance -525 / -1435 496 / 496 240 / 736 Weight last 48 hrs Weight 89.675 kg Weight 86.183 kg Weight 82.554 kg Physical Exam 2 Narrative: General: No acute distress, AOx3 currently on 2 L nasal cannula. Awake and alert. HEENT: Normocephalic, atraumatic, EOMI,. Cardio: Regular rate rhythm, normal S1-S2, Respiratory: Bilateral bronchial breath sounds occasional rhonchi all over lung rivera, coarse Acra present bilateral lower zone GI: Abdomen soft, nontender, nondistended, bowel sounds + Extremities: Surgical site not examined. Patient is immediately status post surgery at this time. Urinary Catheter Management: Jurado: Cath Placed During This Visit: yes Reason for Continuing Indwelling Catheter: Perioperative Use in Selected Surgeries Urinary Catheter Date of Insertion: 03/16/24 Urinary Catheter Time of Insertion: 10:30 Data 03/17/24 04:20 03/17/24 04:20 A&P Assessment and plan (1) Closed hip fracture: Qualifiers: Encounter type: initial encounter Laterality: left Qualified Code(s): S72.002A - Fracture of unspecified part of neck of left femur, initial encounter for closed fracture (2) Hypertension: (3) Diabetes mellitus: (4) Dyskinesia, tardive: (5) Nicotine dependence, chewing tobacco, uncomplicated: (6) History of alcohol abuse: (7) First degree AV block: Plan #Left hip fracture #Hypertension #Lives at assisted living facility #Bilateral atelectasis #New oxygen requirement #New first-degree AV block Status post hip replacement. Continue physical therapy. Monitor hemoglobin. Out of bed to chair. Hydrocodone 5 mg every 6 hour as needed. Morphine 1 mg 4-hour as needed for pain control. Heparin 5000 Q12 hourly for DVT prophylaxis Hypoxia: As per patient not requiring oxygen at baseline. Oxygen supplementation keeping saturation over 90%. Appreciate recent CTA. Check procalcitonin. Low concern for superadded bacterial infection for now. Appreciate no leukocytosis for now. Hold off on IV antibiotics. Check procalcitonin, D-dimer. Appreciate recent CTA. Continue with incentive spirometry. Start on Pulmicort twice daily, DuoNeb every 6 hour. proBNP within normal limits recently. Check echocardiogram. Hypertension: Goal blood pressure less than 140/90 MAG. Continue with amlodipine 10 mg oral daily for now. Holding off on home dose of Coreg and ARB for now. Discharge plan: Plan to discharge to SNF once accepted. Patient most likely will require authorization. Appreciate case management. Regular diet Protonix for PUD prophylaxis Heparin for DVT prophylaxis Attestations 2 Medical Necessity Statement*: Requires further hospitalization for management of left hip fracture post hip replacement while safe discharge planning is sought, new hypoxia Diagnoses Closed hip fracture S72.002A Encounter type: initial encounter Laterality: left Hypertension I10 Diabetes mellitus E11.9 Dyskinesia, tardive G24.01 Nicotine dependence, chewing tobacco, uncomplicated F17.220 History of alcohol abuse F10.11 First degree AV block I44.0
--- NOTE | 2024-03-17 18:23 | USCV_ITS ---
Yordan Cali Age: 78 Gender: M : 1945 Exam Date: 03/17/2024 20:39 Ordering Phys: Lucio Swann MD Technologist: JENNIE [place] [facility] [place]ication: CHF, HTN DM, s/p ORIF LT HIP FX BP: 106 / 58 HR: 75 Rhythm: Sinus Technical Quality: Adequate MEASUREMENTS (Male / Female) Normal Values 2D ECHO LV Diastolic Diameter PLAX 4.3 cm 4.2 - 5.9 / 3.9 - 5.3 cm IVS Diastolic Thickness 1.2 cm 0.6 - 1.0 / 0.6 - 0.9 cm IVS Systolic Thickness 2.0 cm LVPW Diastolic Thickness 1.7 cm 0.6 - 1.0 / 0.6 - 0.9 cm LVPW Systolic Thickness 1.7 cm LVOT Diameter 2.2 cm LV Ejection Fraction 2D Teich 59.9 % LV Ejection Fraction MOD 4C 60.5 % LV Ejection Fraction MOD 2C 74.6 % LV Ejection Fraction 2C AL 74.8 % LA Diameter 3.7 cm Aorta at Sinotubular Diameter 3.5 cm IVC Diameter 1.5 cm M-MODE LA Ao Ratio MM 1.2 AV Cusp Separation MM 1.9 cm DOPPLER AV Peak Velocity 126.0 cm/s LVOT Peak Velocity 96.0 cm/s AV Area Cont Eq vti 3.3 cm squared AV Area Cont Eq pk 2.9 cm squared MV Peak Velocity 104.0 cm/s MV Area PHT 5.3 cm squared Mitral E to A Ratio 0.8 PV Peak Velocity 105.0 cm/s FINDINGS Left Ventricle Normal left ventricular size, systolic function and wall thickness, with no regional wall motion abnormalities. Left ventricular ejection fraction is estimated at 60 %. Grade I/IV diastolic dysfunction (abnormal relaxation filling pattern), normal to mildly elevated filling pressures. Right Ventricle The right ventricle is normal in size and function. Right Atrium The right atrium is normal in size. Left Atrium The left atrium is normal in size. Mitral Valve Mildly thickened mitral valve. No mitral valve stenosis. Mild mitral valve regurgitation. Aortic Valve Mild aortic valve calcification. No aortic valve stenosis. Trace aortic valve regurgitation. Tricuspid Valve Structurally normal tricuspid valve without significant stenosis or regurgitation. Pulmonary artery systolic pressure is normal. Pulmonic Valve Structurally normal pulmonic valve without significant stenosis. There is no pulmonic regurgitation. Pericardium Normal pericardium without effusion. Aorta Normal ascending aorta dimension. IVC The inferior vena cava appears normal. CONCLUSIONS Normal left ventricular size, systolic function and wall thickness, with no regional wall motion abnormalities. Left ventricular ejection fraction is estimated at 60 %. Grade I/IV diastolic dysfunction (abnormal relaxation filling pattern), normal to mildly elevated filling pressures. Mildly thickened mitral valve. No mitral valve stenosis. Mild mitral valve regurgitation. There is no pericardial effusion. Right atrial pressure is around 5 mm of mercury. Bj Michel MD (Electronically Signed) Final Date: 18 March 2024 20:23 S
[2024-03-17 19:08] LABS: Procalcitonin 0.14 ng/mL (0-0.5)
[2024-03-17 19:48] LABS: D Dimer 0.67 ug/mLFEU (0-0.59)
[2024-03-17] MEDS: donepezil 5 MG Tablet 10 MG PO (21:13)
[2024-03-17] MEDS: atorvastatin 40 mg Tablet 80 MG PO (21:14)
[2024-03-17] MEDS: OLANZapine 10 mg TABLET 15 MG PO (21:14)
[2024-03-17] MEDS: trazodone 100 mg Tablet PO (21:15)
[2024-03-18] VITALS (15 sets, daily range): BP systolic 125–152; BP diastolic 63–86; PULSE 77–88; RESP 16–20; TEMP 36.4–37.4; O2SAT 90–94
[2024-03-18] MEDS: ipratropium-albuterol 3 mL Neb INHALATION ×4 (01:05→19:36)
[2024-03-18] MEDS: heparin 5,000 unit/mL INJ 1 mL 5000 UNIT SUBCUT ×2 (02:48→16:16)
--- OUTSIDE RECORDS SUMMARY | 2024-03-18 05:41 | XMS_ITS ---
Author Organization Unknown ALLERGIES AND ADVERSE REACTIONS No information ASSESSMENT No information CHIEF COMPLAINT No information Problems Date Problem Result OnSetDate Icd10 SnomedCode Severity 11/22/2023 12:00:00 AM Chronic back pain 11/22/2023 12:00:00 AM [id number] OBJECTIVE DATA No information PHYSICAL EXAMINATION No information TREATMENT PLAN No information RESULTS No information REVIEW OF SYSTEMS No information SUBJECTIVE DATA No information VITAL SIGNS No information MEDICATIONS No information
--- OUTSIDE RECORDS SUMMARY | 2024-03-18 05:41 | XMS_ITS | Data Portability ---
Author Organization [facility], [place], [place] Address [address] [facility] [address] [place] [address] Care Team Providers Care Nurse Charge Rn Name Role Phone PAMELA RAYO Primary Care Provider Assessment Encounter Date Assessment Date Assessment LastModified by Organization Details LastModified Time 07/20/2023 07/20/2023 I reviewed the patient's recent labs, vital signs, medications, and plan of care. I recommend no other change sat this time. he reports feeling great with no issues at this time. [email or web address] Not available 07/23/2023 12:42:40 10/19/2023 10/19/2023 I reviewed the patient's recent labs, vital signs, medications, and plan of care. I recommend no other change sat this time. Not available 10/19/2023 14:42:50 01/25/2024 01/25/2024 I reviewed the patient's recent labs, vital signs, medications, and plan of care. I recommend no other change sat this time. [email or web address] Not available 02/10/2024 14:30:48 Plan of Treatment Reminders Order Date Submit Date Provider Last Modified By Organization Details Last Modified Time Details Appointments None recorded. Lab HbA1c (hemoglobin A1c), blood 2023 024 [email or web address] [facility] ([facility]), [address] [facility], [place], [address], 11:39:11 microalbumi n/creatinin e, mass ratio, urine 2023 024 [email or web address], [address] [facility] , [address] [place] [address], [place], [address], 4 02:44:49 urinalysis, complete 2023 024 [facility] ([facility]), [address] [place], [address], 4 11:39:11 HBsAg (hepatitis B surface Ag), serum 2023 024 [email or web address] [facility], [address], [place], [address], 4 02:44:51 CMP, serum or plasma [address] [facility], [address] [place] [address], [facility] [address], [place], [address], 4 11:39:11 lipid panel, blood [address] [facility], [address] [place] [address], [facility], [place], [address], 4 11:39:11 CBC - all labs ordered by V [address] [facility], [address] [place] [address], [facility], [place], [address], 4 11:39:11 vitamin B12, serum 2023 024 [email or web address] [facility], [address], [address], [place], [address], 4 02:44:53 ferritin, serum or plasma 2023 024 [email or web address] [facility], [address], [address], [place], [address], 4 02:44:52 HbA1c (hemoglobin A1c), blood 2023 [facility] ([facility]), [address] [place], [address], 10:21:16 microalbumi n/creatinin e, mass ratio, urine 2023 [email or web address] [facility], [address] [facility] , [address], [place], [address], 4 10:41:50 ferritin, serum or plasma 2023 [email or web address] [facility], [address] [facility] , [address], [place], [address], 4 05:17:58 vitamin B12, serum 2023 [email or web address] [facility], [address] [facility] , [address], [place], [address], 4 05:17:59 Referral None recorded. Procedures None recorded. Surgeries None recorded. Imaging None recorded. Medication Orders Zithromax Z-Matt 250 mg tablet 2023 [facility], [address] [place] [address], [address], 18:09:42 prednisone 20 mg tablet 2023 [facility], [address] [place] [address], [address], 4 18:09:41 Breo Ellipta 100 mcg-25 mcg/dose powder for inhalation 2023 [facility], [address] [place] [address], [address], 5 16:31:57 Patient TargetsNo targets recorded. Patient InstructionsNo instructions recorded. Reason for Referral None Reported. Results Created Date Observation Date Name Description Value Unit Range Abnormal Flag Note LastModifiedBy Organization Detail LastModifiedTime 07/19/19 24 07/19/2023 CBC WBC 6.8 x10 4.5-10 .5 Not Available [facility] [address], [place], [address], 07/19/2023 09:58:01 07/19/19 24 07/19/2023 CBC RBC 4.68 x10 4.30-5 .90 Not Available [facility] [address], [place], [address], 07/19/2023 09:58:01 07/19/19 24 07/19/2023 CBC HGB 15.2 g/dL 13.5-1 8.0 Not Available [facility] [address] [facility] 1, [place], [address], 07/19/2023 09:58:01 07/19/19 24 07/19/2023 CBC HCT 43.2 % 35.0-6 0.0 Not Available [facility] [address] [facility] 1, [place], [address], 07/19/2023 09:58:01 07/19/19 24 07/19/2023 CBC MCV 92.3 fL 80.0-9 9.9 Not Available [facility] [address] [facility] 1, [place], [address], 07/19/2023 09:58:01 07/19/19 24 07/19/2023 CBC MCH 32.5 pg 27.0-3 2.0 high Not Available [facility] [address] [facility] [address], [place], [address], 07/19/2023 09:58:01 07/19/19 24 07/19/2023 CBC MCHC 35.3 g/dL 32.0-3 6.0 Not Available [facility] [address] [facility] 1, [place], [address], 07/19/2023 09:58:01 07/19/19 24 07/19/2023 CBC RDW 13.1 % 11.5-1 4.5 Not Available [facility] [address] [facility] 1, [place], [address], 07/19/2023 09:58:01 07/19/19 24 07/19/2023 CBC plt 114.1 x10 150.0- 451.0 low Not Available [facility] [address] [facility] 1, [place], [address], 07/19/2023 09:58:01 07/19/19 24 07/19/2023 CBC lymphocytes % 18.0 % 20.0-5 0.0 low Not Available [facility] [address] [address], [place], [address], 07/19/2023 09:58:01 07/19/19 24 07/19/2023 CBC granulcytes % 69.4 % 30.0-7 0.0 Not Available [facility] [address] [address], [place], [address], 07/19/2023 09:58:01 07/19/19 24 07/19/2023 CBC monocytes % 8.2 % 2.0-16 .0 Not Available [facility] [address] [address], [place], [address], 07/19/2023 09:58:01 07/19/19 24 07/19/2023 CBC granulcytes# 4.7 x10 Not Rosalba ilable [facility] [address] [address], [place], [address], 07/19/2023 09:58:01 07/19/19 24 07/19/2023 CBC lymphocytes # 1.2 x10 Not Available [facility] [address] [facility] [address] [address], [place], [address], 07/19/2023 09:58:01 07/19/19 24 07/19/2023 CBC monocytes # 0.6 x10 Not Avai lab[facility]ony [facility] [address] [facility], [place], [address], 07/19/2023 09:58:01 07/19/19 24 07/19/2023 CMP (MALE ) glucose 103.0 mg/dL 60.0-9 9.0 high Not Available [facility] [address] [facility], [place], [address], 07/19/2023 10:53:38 07/19/19 24 07/19/2023 CMP (MALE ) BUN (blood urea nitrogen) 11.0 mg/dL 10.0-2 6.0 Not Available [facility] [address] [address], [place], [address], 07/19/2023 10:53:38 07/19/19 24 07/19/2023 CMP (MALE ) creatinine (serum) 0.8 mg/dL 0.4-1. 5 Not Available [facility] [address] [facility] [address] [address], [place], [address], 07/19/2023 10:53:38 07/19/19 24 07/19/2023 CMP (MALE ) BUN/creatini ne ratio 13.75 ratio Not Available [facility] [address] [facility] [address] [address], [place], [address], 07/19/2023 10:53:38 07/19/19 24 07/19/2023 CMP (MALE ) eGFR calculated 99.1 Not Available [facility] [address] [facility] [address] [address], [place], [address], 07/19/2023 10:53:38 07/19/19 24 07/19/2023 CMP (MALE ) total protein 7.0 g/dL 6.0-8. 5 Not Available [facility] [address] [facility] 1, [place], [address], 07/19/2023 10:53:38 07/19/19 24 07/19/2023 CMP (MALE ) total bilirubin 0.6 mg/dL 0.2-1. 3 Not Available [facility] [address] [facility] 1, [place], [address], 07/19/2023 10:53:38 07/19/19 24 07/19/2023 CMP (MALE ) albumin 4.3 g/dL 3.5-5. 5 Not Available [facility] [address] [address], [place], [address], 07/19/2023 10:53:38 07/19/19 24 07/19/2023 CMP (MALE ) globulin 2.7 calc Not Available [facility] [address] [address], [place], [address], 07/19/2023 10:53:38 07/19/19 24 07/19/2023 CMP (MALE ) AST (SGOT) 39.0 U/L 0.0-46 .0 Not Available [facility] [address] [address], [place], [address], 07/19/2023 10:53:38 07/19/19 24 07/19/2023 CMP (MALE ) altv (SGPT) 42.0 U/L 13.0-6 9.0 normal Not Available [facility] [address] [address], [place], [address], 07/19/2023 10:53:38 07/19/19 24 07/19/2023 CMP (MALE ) A/G ratio 1.6 ratio Not Available [facility] [address] [address], [place], [address], 07/19/2023 10:53:38 07/19/19 24 07/19/2023 CMP (MALE ) ALP phos 86.0 U/L 30.0-1 40.0 normal Not Available [facility] [address] [facility] 1, [place], [address], 07/19/2023 10:53:38 07/19/19 24 07/19/2023 CMP (MALE ) calcium 9.4 mg/dL 8.4-10 .5 Not Available [facility] [address] [facility] [address], [place], [address], 07/19/2023 10:53:38 07/19/19 24 07/19/2023 CMP (MALE ) sodium 142.0 mmol/ L 136.0- 145.0 Not Available [facility] [address] [address], [place], [address], 07/19/2023 10:53:38 07/19/19 24 07/19/2023 CMP (MALE ) potassium 4.1 mmol/ L 3.5-5. 1 Not Available [place] [facility] [address] [facility] 1, [place], [address], 07/19/2023 10:53:38 07/19/19 24 07/19/2023 CMP (MALE ) chloride 108.0 mmol/ L 98.0-1 10.0 normal Not Available [facility] [address] [facility] 1, [place], [address], 07/19/2023 10:53:38 07/19/19 24 07/19/2023 CMP (MALE ) C02 32.0 mmol/ L 22.0-3 1.0 high Not Available [facility] [address] [address], [place], [address], 07/19/2023 10:53:38 07/19/19 24 07/19/2023 CMP (MALE ) anion gap 2.0 calc Not Available [facility] [address] [facility], [place], [address], 07/19/2023 10:53:38 07/19/19 24 07/19/2023 CMP (MALE ) osmolality 292.8 calc Not Available [place] [facility] [address] [facility], [place], [address], 07/19/2023 10:53:38 07/19/19 24 07/19/2023 LIPID PROFI LE (MALE ) cholesterol 96.0 mg/dL 0.0-20 0.0 Not Available [place] [facility] [address] [facility], [place], [address], 07/19/2023 10:54:49 07/19/19 24 07/19/2023 LIPID PROFI LE (MALE ) trig 151.0 mg/dL 0.0-15 0.0 high Not Available [place] [facility] [address] [facility], [place], [address], 07/19/2023 10:54:49 07/19/19 24 07/19/2023 LIPID PROFI LE (MALE ) HDL - direct 35.0 mg/dL >40.0 low Not Available [facility] [address] [facility], [place], [address], 07/19/2023 10:54:49 07/19/19 24 07/19/2023 LIPID PROFI LE (MALE ) VLDL - direct 30.2 mg/dL Not Available [facility] [address] [facility], [place], [address], 07/19/2023 10:54:49 07/19/19 24 07/19/2023 LIPID PROFI LE (MALE ) LDL - direct 30.8 mg/dL 0.0-13 0.0 Not Available [facility] [address] [address], [place], [address], 07/19/2023 10:54:49 07/19/19 24 07/21/2023 ALBUM IN, RANDO M URINE W/CRE ATINI NE creatinine, random urine 32 mg/dL 20-320 normal Not Available [address] [address] [place], [address], 07/21/2023 02:44:49 07/19/19 24 07/21/2023 ALBUM IN, RANDO M URINE W/CRE ATINI NE albumin, urine <0.2 mg/dL see note: normal Refer ence Range : Refer ence Range Not estab lishe d Not Available [address] [address] [address] , [place], [address], 07/21/2023 02:44:49 07/19/19 24 07/21/2023 ALBUM IN, RANDO M URINE W/CRE ATINI NE albumin/crea tinine ratio, random urine NOTE mg/g_ creat <30 normal NOTE: The urine album in value is less than 0.2 mg/dL there fore we are unabl e to calcu late excre tion and/o r creat inine ratio . The ADA defin es abnor malit ies in album in excre tion as follo ws: Album inuri a Categ ory Resul t (mg/g creat inine ) Varsha l to Mildl y incre ased <30 Moder ately incre ased 30-29 9 Sever marilee incre ased > OR = 300 The ADA recom mends that at least two of three speci mens colle cted withi n a 3-6 month perio d be abnor mal befor e consi yamilka g a patie nt to be withi n a diagn ostic categ ory. Not Available [address] [address] [place], [address], 07/21/2023 02:44:49 07/19/19 24 07/21/2023 HEPAT ITIS B SURFA CE ANTIG EN W/REF L CONFI RM hepatitis B surface antigen NON-RE ACTIVE non-re active normal For addit ional infor mitesh porras e refer to http: //susannah cantu stdia gnost ics.c om/fa q/FAQ (This link is being provi ded for infor brittany sandhu/ nallely rotho ses only. ) Not Available [facility] [address] [address] [place], [address], 07/21/2023 02:44:51 07/19/19 24 07/21/2023 TANNER TIN ferritin 46 NG/mL 24-380 normal Not Available [facility] [address] [address] [place], [address], 07/21/2023 02:44:52 07/19/19 24 07/21/2023 VITAM IN B12 vitamin B12 468 pg/mL 200-11 00 normal Not Available [facility] [address] [address] [place], [address], 07/21/2023 02:44:53 07/19/19 24 07/19/2023 urina lysis , compl ete color yellow Not Available [facility] ([facility]) [address] [place] [address], [address], 07/19/2023 09:41:29 07/19/19 24 07/19/2023 urina lysis , compl ete clarity clear clear Not Available [facility] ([facility]) [address] [place] [address], [address], 07/19/2023 09:41:29 07/19/19 24 07/19/2023 urina lysis , compl ete glucose 2+ negati ve abnormal Not Available [facility] ([facility]) [address] [place] [address], [address], 07/19/2023 09:41:29 07/19/19 24 07/19/2023 urina lysis , compl ete bilirubin NG negati ve Not Available [facility] ([facility]) [address] [place], [address], 07/19/2023 09:41:29 07/19/19 24 07/19/2023 urina lysis , compl ete ketones NG negati ve Not Available [facility] ([facility]) [address] [place], [address], 07/19/2023 09:41:29 07/19/19 24 07/19/2023 urina lysis , compl ete specific gravity 1.015 1.005- 1.025 Not Available [facility] ([facility]) [address] [place], [address], 07/19/2023 09:41:29 07/19/19 24 07/19/2023 urina lysis , compl ete pH 7.0 5.0-7. 0 Not Available [facility] ([facility]) [address] [place], [address], 07/19/2023 09:41:29 07/19/19 24 07/19/2023 urina lysis , compl ete protein NG Not Available [facility] ([facility]) [address] [place], [address], 07/19/2023 09:41:29 07/19/19 24 07/19/2023 urina lysis , compl ete uro 0.2 Not Available [facility] ([facility]) [address] [place], [address], 07/19/2023 09:41:29 07/19/19 24 07/19/2023 urina lysis , compl ete nitrate NG negati ve Not Available [facility] ([facility]) [address] [place], [address], 07/19/2023 09:41:29 07/19/19 24 07/19/2023 urina lysis , compl ete blood NG negati ve Not Available [facility] ([facility]) [address] [place], [address], 07/19/2023 09:41:29 07/19/19 24 07/19/2023 urina lysis , compl ete leukocytes 1+ negati ve abnormal Not Available [facility] ([facility]) [address] [place], [address], 07/19/2023 09:41:29 07/19/19 24 07/19/2023 urina lysis , compl ete WBC 10-12 0 abnormal Not Available [facility] ([facility]) [address] [place], [address], 07/19/2023 09:41:29 07/19/19 24 07/19/2023 urina lysis , compl ete RBC 2-3 0 Not Available [facility] ([facility]) [address] [place], [address], 07/19/2023 09:41:29 07/19/19 24 07/19/2023 urina lysis , compl ete epi cells 6-8 0 abnormal Not Available [facility] ([facility]) [address] [place], [address], 07/19/2023 09:41:29 07/19/19 24 07/19/2023 urina lysis , compl ete bacteria buddin g yeast seen abnormal Not Available [facility] ([facility]) [address] [place], [address], 07/19/2023 09:41:29 07/19/19 24 07/19/2023 urina lysis , compl ete other NG Not Available [facility] ([facility]) [address] [place], [address], 07/19/2023 09:41:29 07/19/19 24 07/19/2023 HbA1c (hemo globi n A1c), blood HbA1c 5.7 Not Available [facility] ([facility]) [address] [place], [address], 07/19/2023 09:40:59 11/22/19 24 11/23/2023 TANNER TIN ferritin 39 NG/mL 24-380 normal Not Available [facility] [employer] [address] [address] [place], [address], 11/23/2023 05:17:57 11/22/1911/23/2023 VITAM IN B12 vitamin B12 359 pg/mL 200-11 00 normal Pleas e Note: Altho ugh the refer ence range for vitam in B12 is 200-1 100 pg/mL , it has been repor teresa that betwe en 5 and 10% of patie nts with value s betwe en 200 and 400 pg/mL may exper ience neuro psych iatri c and hemat ologi c abnor malit ies due to occul t B12 defic iency ; less than 1% of patie nts with value s above 400 pg/mL will have sympt oms. Not Available [facility] [employer] [address] [address] [place], [address], 11/23/2023 05:17:59 11/22/1911/23/2023 ALBUM IN, RANDO M URINE W/CRE ATINI NE creatinine, random urine 48 mg/dL 20-320 normal Not Available [facility] [email or web address] [address] [place], [address], 11/23/2023 10:41:50 11/22/1911/23/2023 ALBUM IN, RANDO M URINE W/CRE ATINI NE albumin, urine 0.9 mg/dL see note: normal Refer ence Range : Refer ence Range Not estab lishe d Not Available [facility] [employer] [address] [address] [place], [address], 11/23/2023 10:41:50 11/22/19 24 11/23/2023 ALBUM IN, RANDO M URINE W/CRE ATINI NE albumin/crea tinine ratio, random urine 19 mg/g_ creat <30 normal The ADA defin es abnor malit ies in album in excre tion as follo ws: Album inuri a Categ ory Resul t (mg/g creat inine ) Varsha l to Mildl y incre ased <30 Moder ately incre ased 30-29 9 Sever marilee incre ased > OR = 300 The ADA recom mends that at least two of three speci mens colle cted withi n a 3-6 month perio d be abnor mal befor e consi yamilka g a patie nt to be withi n a diagn ostic categ ory. Not Available [facility] [address] [place], [address], 11/23/2023 10:41:50 11/22/19 24 11/22/2023 HbA1c (hemo globi n A1c), blood HbA1c 5.8 Not Available [facility] ([facility]) [address] [place], [address], 11/22/2023 09:41:47 Result Notes None recorded. Problems Name Problem SNOMED Code Status Onset Date Resolution Date Notes Provider Name and Address Organization Details Recorded Time Type 2 diabetes mellitus 77188321 Active 2022 LACY kunz [facility] 3 15:49:52 Hyperlipide jaswinder 49884894 Active 2022 LACY kunz [facility] 3 15:49:59 Essential hypertensio n 03170995 Active 2022 LACY kunz [facility] 3 15:50:06 Paranoid schizophren ia 92776192 Active 2022 LACY kunz [facility] 3 15:50:14 Anemia 847118698 Active 2023 [facility] 14:36:22 Nicotine dependence 96478525 Active 2023 [facility] 4 14:36:45 Chronic back pain 195731101 Active 2023 LACY CALLOWAY [facility] 4 11:41:07 Pathologica l fracture of neck of right femur 1881745345509 9109 Active 2022 [facility] 3 13:58:16 Traumatic subdural hematoma 897075763 Active 2022 [facility] 3 13:58:54 Problem Notes None recorded. Procedures Surgical History Date Name Laterality Status Provider Name and Address Organization Details Recorded Time 4 Joint Injection - Kenalog completed Pamela Rayo MD [address] [place] [address], [address], [facility] 05/02/2023 14:50:33 3 Joint Injection - Kenalog completed Pamela Rayo MD [address] [place] [address], [address], [facility] 01/23/2023 13:22:58 3 Partial hip replacement completed LACYCHULA CALLOWAY [facility] 06/28/2022 14:01:54 0 screening for malignant neoplasm of colon completed LACY CALLOWAY [facility] 10/13/2022 16:34:48 Imaging Results None recorded. Procedure Notes None recorded. Medical Equipment None Reported. Allergies Allergen ID Allergen Name Allergen Category Reaction Reaction Severity Criticality Documentation Date Start Date Code Code System Note Provider Name and Address Organization Details Recorded Time 3021 Benadryl medicatio n Not available Not available Not available 06/26/202266864 7 RxNorm [facility] 13:55:46 3022 Product containin g penicilli n and antibioti c (product) medicatio n Not available Not available Not available 06/26/2022 72371 05 SNOMED [facility] 13:55:52 3023 lithium Not available Not available Not available Not available 06/26/2022 6448 RxNorm [facility] 13:55:57 11147 acetamino phen / diphenhyd ramine / pseudoeph edrine medicatio n Not available Not available Not available 09/09/2022 75837 6 RxNorm Comme nt: Recor ded 04/18 12:35 PM by Anne-Marie Hurd RN, Offic e Visit ; Promo teresa; Syed steven ce: *; Reaso n: Drug aller gy; ; [facility] 16:32:15 22156 [place] and/or lithium compound (substanc e) medicatio n Not available Not available Not available 09/09/2022 18479 0005 SNOMED Comme nt: Recor ded 04/18 12:35 PM by Anne-Marie Hurd RN, Offic e Visit ; Promo teresa; Syed steven ce: *; Reaso n: Drug aller gy; ; [facility] 3 16:32:20 Medications Name Sig Start Date Stop Date Status Note LastModified by Organization Details LastModified Time celecoxib 200 mg capsule TAKE ONE CAPSULE BY MOUTH TWICE DAILY FOR PAIN. GIVE WITH FOOD OR A SNACK. active Not Available Not Available No t Available carvedilo l 25 mg tablet TAKE ONE TABLET BY MOUTH TWICE DAILY FOR HYPERTEN RAFAELA active Not Available Not Available No t Available cetirizin e 10 mg tablet TAKE ONE TABLET BY MOUTH AT BEDTIME 2023 active Not Available Not Available Not Avai lable azithromy jaycee 250 mg tablet TAKE 2 TABLETS (500 MG) BY ORAL ROUTE ONCE DAILY FOR 1 DAY THEN 1 TABLET (250 MG) BY ORAL ROUTE ONCE DAILY FOR 4 DAYS active Not Available Not Available No t Available donepezil 10 mg tablet at bedtime active Not Available Not Available No t Available prednison e 20 mg tablet Take 2 tablets every day by oral route for 3 days. active Not Available Not Available No t Available sertralin e 100 mg tablet daily active Not Available Not Available Not Available Milk of Magnesia 400 mg/5 mL oral suspensio n Take 30 mL every day by oral route. active Not Available Not Available No t Available omeprazol e 40 mg capsule,d elayed release TAKE ONE CAPSULE BY MOUTH EVERY DAY active Not Available Not Available No t Available tramadol 50 mg tablet TAKE ONE TABLET BY MOUTH THREE TIMES DAILY WITH MEALS FOR PAIN active Not Available Not Available No t Available triamcino lone acetonide 0.1 % topical cream APPLY TO THE AFFECTED AREA(S) topicall y TWICE DAILY NEEDED FOR rash/ ITCHING AVOID face, groin, AND axillae active Not Available Not Available No t Available trazodone 100 mg tablet 1at bedtime active Not Available Not Available No t Available amlodipin e 10 mg tablet TAKE ONE TABLET BY MOUTH EVERY DAY active Not Available Not Available No t Available gemfibroz il 600 mg tablet two times daily active Not Available Not Available No t Available benztropi ne 1 mg tablet TAKE ONE TABLET BY MOUTH TWICE DAILY active Not Available Not Available No t Available olanzapin e 15 mg tablet 1 at bedtime active Not Available Not Available No t Available polyethyl caridad glycol 3350 17 gram/dose oral powder dissolve ONE capful (17gm) in EIGHT ounces of FLUID AND drink EVERY OTHER DAY *hold FOR loose stools* 2024 active Not Available Not Available Not Avai lable albuterol sulfate HFA 90 mcg/actua tion aerosol inhaler USE TWO INHALATI ONS EVERY 4 HOURS NEEDED active Not Available Not Available No t Available fluticaso ne propionat e 50 mcg/actua tion nasal spray,chris pension USE ONE SPRAY IN EACH NOSTRIL EVERY DAY active Not Available Not Available No t Available metformin ER 500 mg tablet,ex tended release 24 hr Take 1 tablet twice a day by oral route. active Not Available Not Available No t Available irbesarta n 300 mg tablet TAKE ONE TABLET BY MOUTH EVERY DAY FOR BLOOD PRESSURE active Not Available Not Available No t Available Tylenol Extra Strength 500 mg tablet Take 2 tablets every 6 hours by oral route. active Not Available Not Available No t Available buspirone 15 mg tablet 1 three times daily active Not Available Not Available No t Available rosuvasta tin 40 mg tablet TAKE ONE TABLET BY MOUTH EVERY NIGHT AT BEDTIME FOR HYPERCHO LESTERMI A active Not Available Not Available No t Available OneTouch UltraSoft Lancets USE TO test ONCE daily active Not Available Not Available No t Available Flovent HFA 110 mcg/actua tion aerosol inhaler USE TWO INHALATI ONS TWICE DAILY active Not Available Not Available No t Available Cogentin two times daily 10/13 completed 0; Recorded 04/19/19 23 12:36PM by Anne-Marie Hurd RN, Office Visit; Not Available Not Available Not Available Flonase each nostril every day 10/13 completed 436; Recorded 11/22/19 22 1:28PM by Lacy Calloway LPN (Authori steve through Pamela Rayo MD), Refill Request; Refill Quantity : 1; Each; Not Available Not Available Not Available olanzapin e at bedtime 10/13 completed 0; Recorded 04/19/19 23 12:36PM by Anne-Marie Hurd RN, Office Visit; Not Available Not Available Not Available ferrous gluconate daily 10/13 completed 436; Recorded 03/20/19 23 11:45AM by Lacy Calloway LPN (Authori lisad through Pamela Rayo MD), Refill Request; Refill Quantity : 30; Tablet; Not Available Not Available Not Available carvedilo l two times daily 10/13 completed 436; Recorded 06/15/19 22 1:46PM by Lacy Calloway LPN (Authori zed through Pamela Rayo MD), Refill Request; Refill Quantity : 60; Tablet; Not Available Not Available Not Available buspirone three times daily 10/13 completed 0; Recorded 04/19/19 23 12:36PM by Anne-Marie Hurd RN, Office Visit; Not Available Not Available Not Available metformin two times daily 10/13 completed 436; Recorded 02/21/19 23 10:16AM by Lacy Calloway LPN (Authori zed through Pamela Rayo MD), Refill Request; Refill Quantity : 60; Tablet; Not Available Not Available Not Available Miralax disolved in 8 oz fluid every other day, hold for loose stools 10/13 completed 436; Recorded 02/08/20 22 2:38PM by Lacy Calloway LPN (Authori zed through Pamela Rayo MD), Refill Request; Refill Quantity : 510; Gram; Not Available Not Available Not Available Trazodone at bedtime 10/13 completed Recorded 10/29/19 21 7:23AM by Africa Hammer LPN, Office Visit; Refill Quantity : 90; Tablet; Not Available Not Available Not Available Januvia 100 mg tablet TAKE ONE TABLET BY MOUTH EVERY DAY active Not Available Not Available No t Available ferrous gluconate 324 mg (38 mg iron) tablet Take 1 tablet by mouth daily 2022 active Not Available Not Available Not Avai lable ferrous gluconate 325 mg (27 mg iron) tablet Take 1 tablet every day by oral route. active Not Available Not Available No t Available amlodipin e besylate (bulk) daily 10/13 completed 436; Recorded 08/10/19 22 2:42PM by Lacy Calloway LPN (Authori zed through Pamela Rayo MD), Refill Request; Refill Quantity : 30; Tablet; Not Available Not Available Not Available OneTouch Verio test strips USE TO test blood sugar DAILY active Not Available Not Available No t Available OneTouch Verio test strips daily 10/13 completed 436; Recorded 04/19/19 23 8:13AM by Lacy Calloway LPN (Authori zed through Pamela Rayo MD), Refill Request; Refill Quantity : 100; Each; Not Available Not Available Not Available Breo Ellipta 100 mcg-25 mcg/dose powder for inhalatio n Inhale 1 puff every day by inhalati on route for 30 days. active Not Available Not Available No t Available Jardiance 25 mg tablet TAKE ONE TABLET BY MOUTH EVERY DAY FOR DIABETES active Not Available Not Available No t Available Ozempic 0.25 mg or 0.5 mg (2 mg/1.5 mL) subcutane ous pen injector inject 0.5mg SUBCUTAN EOUSLY WEEKLY 06/26 completed Not Available Not Available Not Available Ozempic weekly 10/13 completed 1 pen; 436; Recorded 12/29/19 12:51PM by Lacy Calloway LPN (Authori zed through Pamela Rayo MD), Refill Request; Refill Quantity : 1; Each; Not Available Not Available Not Available OneTouch Delica Plus Lancet 33 gauge active Not Available Not Available Not Available Ozempic 0.25 mg or 0.5 mg (2 mg/3 mL) subcutane ous pen injector inject 0.5mg SUBCUTAN EOUSLY WEEKLY ON FRIDAYS FOR DIABETES active Not Available Not Available No t Available Vitals Date Recorded Body height Body mass index (BMI) Body weight Oxygen saturation Oxygen saturation in Arterial blood by Pulse oximetry Heart rate Respiratory rate Body temperature Systolic blood pressure Diastolic blood pressure Provider Name and Address Organization Details Last Updated DateTime 4 170.18 cm 26.8 kg/m2 76877.3 g 95 % 95 % 57 /min 16 /min 97.2 [degF] 112 mm[Hg] 58 mm[Hg] LACY CALLOWAY [facility], [facility] 4 08:50:59 Date Recorded Body height Body mass index (BMI) Body weight Oxygen saturation Oxygen saturation in Arterial blood by Pulse oximetry Heart rate Respiratory rate Body temperature Systolic blood pressure Diastolic blood pressure Provider Name and Address Organization Details Last Updated DateTime 4 170.18 cm 29.8 kg/m2 93611.5 5 g 94 % 94 % 61 /min 16 /min 97.2 [degF] 116 mm[Hg] 70 mm[Hg] Anne-Marie Ahn [facility], [facility] 4 08:28:10 Date Recorded Body height Body mass index (BMI) Body weight Oxygen saturation Oxygen saturation in Arterial blood by Pulse oximetry Heart rate Respiratory rate Body temperature Systolic blood pressure Diastolic blood pressure Provider Name and Address Organization Details Last Updated DateTime 4 170.18 cm 29.8 kg/m2 87919.5 5 g 97 % 97 % 60 /min 16 /min 97.7 [degF] 129 mm[Hg] 64 mm[Hg] Anne-Marie Ahn [facility] 4 08:46:44 Social History Question Answer Notes LastModified by Organizat ion Details LastModified Time What Is Your Level Of Alcohol Consumption? None Information not available 08/01/2022 Do You Or Have You Ever Used Smokeless Tobacco? Currently Chews Tobacco [email or web address] Information not available 08/01/2022 Do You Use Any Illicit Or Recreational Drugs? No [email or web address] Information not available 08/01/2022 Do You Or Have You Ever Used Any Other Forms Of Tobacco Or Nicotine? Yes [email or web address] Information not available 08/01/2022 Sex: Unknown Functional Status None recorded. Mental Status None recorded. Family History Relationship Description Onset Age of this Age Resolved Age Notes LastModified by Organization Details LastModified Time Father No current problems or disability [email or web address] Not available 07/14 15:50:26 Mother No current problems or disability [email or web address] Not available 07/14 15:50:26 Notes:No pertinent family hi story Medical History No medical history recorded. Immunizations Vaccine Type Date Status Note Provider Nam e and Address Organization Details Recorded Time Influenza, MDCK, quadrivalent, PF 2 [facility]/01/[facility] 15:49:11 COVID-19, mRNA, LNP-S, PF, 100 mcg/0.5mL dose or 50 mcg/0.25mL dose 1 completed LACY kunz [facility] 08/01/2022 15:49:11 COVID-19, mRNA, LNP-S, PF, 100 mcg/0.5mL dose or 50 mcg/0.25mL dose 1 completed LACY CALLOWAY null, [facility] 08/01/2022 15:49:11 COVID-19, mRNA, LNP-S, PF, 100 mcg/0.5mL dose or 50 mcg/0.25mL dose 2 completed LACY CALLOWAY null, [facility] 08/01/2022 15:49:11 Pneumococcal conjugate PCV20, polysaccharide OSF555 conjugate, adjuvant, PF 3 completed LACY kunz, [facility] 08/01/2022 15:49:12 COVID-19, mRNA, LNP-S, bivalent, PF, 50 mcg/0.5 mL or 25mcg/0.25 mL dose 3 completed LACY CALLOWAY null, [facility] 08/01/2022 15:49:12 pneumococcal polysaccharide PPV23 7 completed LACY kunz, [facility] 08/01/2022 15:49:12 Influenza, split virus, quadrivalent, PF 1 completed LACY kunz, [facility] 08/01/2022 15:49:12 Hep A-Hep B 1 completed LACY CALLOWAY null, [facility] 08/01/2022 15:49:12 Hep A-Hep B 1 completed LACY kunz, [facility] 08/01/2022 15:49:12 Hep A-Hep B 0 completed LACY kunz, [facility] 08/01/2022 15:49:12 Influenza, MDCK, quadrivalent, preservative 3 completed LACY kunz, [facility] 01/12/2023 09:25:48 zoster recombinant 4 completed LACY kunz, [facility] 05/02/2023 15:09:45 zoster live 6 completed Not Available [facility] 01/23/2023 12:10:59 Tdap 6 completed Not Available [facility] 01/23/2023 12:10:59 COVID-19, mRNA, LNP-S, PF, 100 mcg/0.5mL dose or 50 mcg/0.25mL dose 1 completed Not Available [facility] 01/23/2023 12:10:59 Pneumococcal conjugate PCV 13 6 completed Not Available [facility] 01/23/2023 12:10:59 Past Encounters Encounter ID Performer Location Encounter Start Date Encounter Closed Date Diagnosis/Indication Diagnosis SNOMED-CT Code Diagnosis ICD10 Code Diagnosis Note [id number] Pamela Rayo MD [facility] ([facility]) [address] [place] [phone] 5 06/01/2022 18:07:55 06/01/2022 18:09:23 [id number] Pamela Rayo MD [facility] ([facility]) [address] [place] [address]19[address] 5 06/26/2022 13:33:55 06/26/2022 18:25:24 Closed fracture of hip 658526024 S72.001D [id number] Pamela Rayo MD [facility] ([facility]) [address] [place] [address] 08/01/2022 08:32:18 08/13/2022 13:10:50 Diabetes mellitus 29526140 E11.9 I have reviewed the resident's vital signs, current labs, current meds, and plan of care and recommend no changes at this time. [id number] Pamela Rayo MD [facility] ([facility]) [address] [place] [address] 08/08/2022 08:55:31 08/08/2022 11:08:19 Pain of right knee joint 2568636988 35845 M25.561 wear your hinged knee brace whenever standing walking to prevent fallsmcmur rays positive Instabilit y of joint of right knee 9353164520 302647 M25.361 Subdural hematoma 328607 01 S06.5X0D [id number] Pamela Rayo MD [facility] ([facility]) [address] [place] [address] 5 10/13/2022 08:40:20 10/24/2022 21:32:24 Type 2 diabetes mellitus without complication 581985062 E11.9 Hypertensive disorder 38 290672 I10 Anemia 821022159 D64.9 [id number] Pamela Rayo MD [facility] ([facility]) [address] [place] [address] 5 01/12/2023 08:23:01 01/17/2023 10:40:01 Essential hypertension 59650867 I10 LLV ORDERS Hyperlipidemia 40036629 E78.5 Type 2 taylor betes mellitus 17753312 E11.69 Pain of ri ght knee joint 6444659673 71883 M25.561 patient has been compliant with knee braceknee improved with previous injection. would like another one. appt scheduled for next week Chronic ob structive pulmonary disease 37617746 J44.9 Peripheral vascular disease 714101860 I73.9 [id number] Pamela Rayo MD [facility] ([facility]) [address] [place] [address] 5 01/23/2023 12:10:05 01/23/2023 13:24:36 Pain of right knee joint 3334552793 11776 M25.093 [id number] JÚNIOR MCCABE [facility] ([facility]) [address] [place] [address] 5 04/11/2023 09:48:05 04/12/2023 10:47:40 Hyperlipidemia 84201182 E78.5 [id number] Pamela Rayo MD [facility] ([facility]) [address] [place] [address] 5 04/13/2023 08:27:31 04/17/2023 09:37:05 Essential hypertension 84179517 I10 LLV ORDERS Hyperlipidemia 79088034 E78.5 Type 2 taylor betes mellitus 31719590 E11.69 Peripheral vascular disease 529356828 I73.9 Chronic ob structive pulmonary disease 80359172 J44.9 Peripheral vascular disorder due to diabetes mellitus 002267898 E13.59 [id number] Pamela Rayo MD [facility] ([facility]) [address] [place] [address] 5 05/02/2023 14:16:24 05/02/2023 14:57:14 Herpes zoster vaccination given 7295080372 31552 Z23 Paranoid schizophrenia 10382223 F20.0 Nicotine dependence 5629 4008 F17.200 Anemia 502130772 D64.9 Pain of ri ght knee joint 1522511949 71184 M25.829 [id number] JÚNIOR MCCABE [facility] ([facility]) [address] [place] [address] 5 07/19/2023 09:39:52 07/20/2023 10:39:16 Anemia 741837122 D64.9 Essential hypertension 92159738 I10 Hyperlipidemia 73772885 E78.5 Type 2 taylor betes mellitus 32873038 E11.69 Long-term drug therapy 570040436 Z79.341 [id number] Pamela Rayo MD [facility] ([facility]) [address] [place] [address] 07/20/2023 08:12:39 07/24/2023 13:35:13 Anemia 519489788 D64.9 Essential hypertension 21802693 I10 Hyperlipidemia 71898980 E78.5 Type 2 taylor betes mellitus 51691748 E11.69 [id number] Pamela Rayo MD [facility] ([facility]) [address] [place] [address] 5 10/19/2023 08:26:25 10/23/2023 10:23:05 Essential hypertension 75206425 I10 Hyperlipidemia 58779960 E78.5 Paranoid schizophrenia 20442290 F20.0 Type 2 taylor betes mellitus 55436735 E11.69 [id number] JÚNIOR MCCABE [facility] ([facility]) [address] [place] [address] 11/22/2023 09:40:57 11/22/2023 15:01:12 Anemia 828549393 D64.9 Type 2 taylor betes mellitus 63437239 E11.69 [id number] Pamela Rayo MD [facility] ([facility]) [address] [place] [address] 01/25/2024 08:03:36 02/11/2024 13:36:34 Anemia 692178103 D64.9 Essential hypertension 44675708 I10 Hyperlipidemia 80837557 E78.5 Paranoid schizophrenia 45343539 F20.0 Type 2 taylor betes mellitus 45031525 E11.69 Acute exac erbation of chronic obstructive pulmonary disease 779937340 J44.1 Health Concerns Section Related Observation LastModified by Organization Detai ls LastModified Time None Recorded Concern Status LastModified by Organization Details LastModified Time None Recorded Advance Directives Directive None Recorded Payers Encounter Date Sequence Insurance Name Policy Number Policy Henry Covered Member ID Henry Member ID Guarantor Name 07/19/2023 1 [facility] (MEDICARE REPLACEMENT/A DVANTAGE - PPO) Yordan R Warford [id number] Oyrdan R Warford 07/19/2023 2 [place] Yordan R Warford [id number] Yordan R Warford 07/20/2023 1 [facility] (MEDICARE REPLACEMENT/A DVANTAGE - PPO) Yordan R Warford [id number] Yordan R Warford 07/20/2023 2 [place] Yordan R Warford [id number] Yordan R Warford 10/19/2023 1 [facility] (MEDICARE REPLACEMENT/A DVANTAGE - PPO) Yordan R Warford [id number] Yordan R Warford 10/19/2023 2 [place] Yordan R Warford [id number] Yordan R Warford 11/22/2023 1 [facility] (MEDICARE REPLACEMENT/A DVANTAGE - PPO) Yordan R Warford [id number] Yordan R Warford 11/22/2023 2 [place] Yordan R Warford [id number] Yordan R Warford 01/25/2024 1 [facility] (MEDICARE REPLACEMENT/A DVANTAGE - PPO) Yordan R Warford [id number] Yordan Cali 01/25/2024 2 [place] Yordan Cali [id number] Yordan Cali Notes Date Note Type Note Provider Name and Address Organization Details Recorded Time 4 text/htm l AnemiaReported bypatient.Duration:constant Timing:gradual Associated Symptoms:no shortness of breath; no chest pain; no weaknessDiabetesReported bypatient.Duration:chronic Control:treated with diet and oral medications; hemoglobin A1C has been less than 7; A1C 5.7 Compliance:compliant with medications; compliant with follow-up visits Self Care:monitoring glucose daily; 285 132 153 133 164 121 204 (these are not fasting)Hypertension IM/FMReported bypatient.Severity:normal (<120/<80 mmHg) Duration:HTN present for years Onset/Timing:gradual onset Alleviating Factors:medication Associated Symptoms:no shortness of breath; no palpitations; no tachycardia; no chest pain Risk Factorsdiabetes Patient seen today by Dr. Rayo at [facility] A1c 5.0, LDL 38 Pamela Rayo MD [address] [place] [address], [phone], [facility], [facility] 07/23/2023 12:42:55 4 text/htm l AnemiaReported bypatient.Duration:constant Timing:gradual Associated Symptoms:no shortness of breath; no chest pain; no weaknessDiabetesReported bypatient.Duration:chronic Control:treated with diet and oral medications; hemoglobin A1C has been less than 7; A1C 5.7 Compliance:compliant with medications; compliant with follow-up visits Self Care:monitoring glucose daily; 285 132 153 133 164 121 204 (these are not fasting)Hypertension IM/FMReported bypatient.Severity:normal (<120/<80 mmHg) Duration:HTN present for years Onset/Timing:gradual onset Alleviating Factors:medication Associated Symptoms:no shortness of breath; no palpitations; no tachycardia; no chest pain Risk Factorsdiabetes Patient seen today by Dr. Rayo at [facility] Pamela Rayo MD [address] [place] [address], [phone] 14:43:05 4 text/htm l AnemiaReported bypatient.Duration:constant Timing:gradual Associated Symptoms:no shortness of breath; no chest pain; no weaknessDiabetesReported bypatient.Duration:chronic Control:treated with diet and oral medications; hemoglobin A1C has been less than 7; A1C 5.7 Compliance:compliant with medications; compliant with follow-up visits Self Care:monitoring glucose daily; 285 132 153 133 164 121 204 (these are not fasting)Hypertension IM/FMReported bypatient.Severity:normal (<120/<80 mmHg) Duration:HTN present for years Onset/Timing:gradual onset Alleviating Factors:medication Associated Symptoms:no shortness of breath; no palpitations; no tachycardia; no chest pain Risk Factorsdiabetes Patient seen today by Dr. Rayo at [facility] Pamela Rayo MD [address] [place] [address], [phone], [facility] Anay Garcia 02/10/2024 14:31:02
[2024-03-18 06:06] LABS: Basophils % 0.2 %; Eosinophils # 0.1 10^3/uL (0.0-0.8); Eosinophils % 1.3 %; Hematocrit 34.7 % (37-53); Lymphocytes # 1.5 10^3/uL (0.8-4.8); Lymphocytes % 17.6 %; Mean Corpuscular HGB Conc 33.7 g/dL (30-55); Mean Corpuscular Hemoglobin 31.5 pg (27-33); Mean Corpuscular Volume 93.5 fl (82-101); Mean Platelet Volume 10.7 fL (7.4-10.4); Monocytes # 0.9 10^3/uL (0.2-0.9); Monocytes % 10.1 %; Neutrophils % 70.3 %; Nucleated Red Blood Cells % 0 %; Platelet Count 116 10^3/cmm (157-399); Red Blood Count 3.71 10^6/uL (3.85-5.65); Red Cell Distribution Width 12.9 % (12.1-15.1); White Blood Count 8.53 10^3/uL (3.29-11.43)
[2024-03-18 06:37] LABS: Alanine Aminotransferase 37 U/L (0-41); Albumin Level 3.5 g/dL (3.5-5.2); Alkaline Phosphatase 66 U/L (40-130); Anion Gap 10.7 (5-19); Aspartate Amino Transferase 50 U/L (0-40); Blood Urea Nitrogen 17 mg/dL (8-23); Calcium 8.8 mg/dL (8.5-10.5); Carbon Dioxide 29 mmol/L (22-29); Chloride 102 mmol/L (98-107); Creatinine Clr Calc Pharmacy 80.1146; Globulin 2.4 g/dL (1.3-4.6); Glucose 166 mg/dL (65-115); Osmolality Calculated 291 mOsm/kg (285-295); Potassium 3.7 mmol/L (3.5-5.1); Sodium 138 mmol/L (136-145); Total Bilirubin 0.5 mg/dL (0.15-1.2); Total Protein 5.9 g/dL (6.6-8.7)
[2024-03-18 06:45] LABS: Folate Level 16.6 ng/mL (4.5-32.2)
[2024-03-18] MEDS: sertraline 100 mg Tablet 200 MG PO (06:45)
[2024-03-18] MEDS: TRAMadol 50 mg Tablet PO ×3 (06:45→20:44)
[2024-03-18] MEDS: BuSPIRONE 10 mg Tablet 15 MG PO ×3 (06:46→20:46)
[2024-03-18] MEDS: pantoprazole DR 40 mg Tablet PO (06:46)
[2024-03-18] MEDS: amlodipine 10 mg Tablet PO (06:46)
[2024-03-18] MEDS: budesonide 0.5 mg/2 mL Neb INHALATION ×2 (08:08→19:36)
[2024-03-18] MEDS: multivitamin therapeutic Tablet 1 TAB PO (09:14)
[2024-03-18] MEDS: iron polysaccharide complex 150 mg Capsule PO ×2 (09:14→18:05)
[2024-03-18] MEDS: calcium carb-vit d 600mg/400unit 1 Tablet 1 EACH PO ×2 (09:14→18:05)
[2024-03-18] MEDS: chlorhexidine gluconate 0.12% Btl 473 mL 30 ML MUCOUS MEM ×4 (09:14→20:46)
[2024-03-18] MEDS: mupirocin oint 22 gm 1 APPLIC NASAL ×2 (09:14→18:07)
[2024-03-18] MEDS: sennosides-docusate Tablet 2 TAB PO ×2 (09:14→18:05)
--- NOTE | 2024-03-18 12:30 | P.PN_ITS ---
Documented by User: FADIA Celestin 03/18/24 12:34 Subjective 2 Subjective: Patient is an 78-year-old male that is 2 day postop left hip hemiarthroplasty. Denies any acute events overnight. Denies any fevers. He has been able to eat drink and keep food and fluids down. Patient has some aching pain in his left hip pain that is controlled. He was able to get up with physical therapy and did some ambulating today with walker. Vitals/I&O/Wt Last Vital Signs Temp 97.6 F 03/18/24 11:46 Pulse 77 03/18/24 11:46 Resp 18 03/18/24 11:46 BP 135/79 03/18/24 11:46 Pulse Ox 92 03/18/24 11:46 O2 Del Method Nasal Cannula 03/18/24 11:46 O2 Flow Rate 3 03/18/24 08:09 03/17/24 03/18/24 03/18/24 22:59 06:59 14:59 Intake Total 530 / 1126 120 / 1246 Output Total 350 / 450 350 / 800 Balance 180 / 676 -230 / 446 Weight last 48 hrs Weight 201 lb 8 oz Weight 197 lb 11.2 oz Physical Exam 2 Const: COMMON NORMALS: no acute distress and alert Resp: COMMON NORMALS: normal respiratory effort and No retractions Cardio: COMMON NORMALS: Peripheral pulses 2+ throughout PERIPHERAL PULSES: Peripheral pulses 2+ throughout Extremity: NARRATIVE EXTREMITY EXAM: Left leg?surgical dressing is dry and in place. Mild swelling around incision site but no ecchymosis noted. Compartments are soft and compressible. Patient able to wiggle toes and dorsiflex and plantarflex foot. It was too painful for him to try to lift his leg. Pedal pulse 2+. Patient had some mild pain in the left hip with logroll test. Neuro: SENSORIUM/ORIENTATION: Yes alert Skin: GENERAL SKIN EXAM: dry skin Urinary Catheter Management: Jurado: Cath Placed During This Visit: yes Reason for Continuing Indwelling Catheter: Perioperative Use in Selected Surgeries Urinary Catheter Date of Insertion: 03/16/24 Urinary Catheter Time of Insertion: 10:30 Data 03/22/24 04:32 03/22/24 04:32 A&P Assessment and plan (1) Closed hip fracture: Qualifiers: Encounter type: initial encounter Laterality: left Qualified Code(s): S72.002A - Fracture of unspecified part of neck of left femur, initial encounter for closed fracture Plan Plan: -Orthopedics consulted -Hospitalist admitted patient is primary -All imaging reviewed -Labs reviewed -Pain control -PT/OT -Weightbearing as tolerated to left leg -VTE prophylaxis per hospitalist Patient is 2 day postop left hip hemiarthroplasty. He is doing well and is doing physical therapy and has gotten up and ambulated today. Continue PT/OT and we will follow-up with patient tomorrow. PDMP PDMP Reviewed: Not Reviewed Attestations 2 Medical Necessity Statement*: Ongoing care for left hip fracture Coding Level of Care Code Acute Code for Chg Fwd Diagnoses Closed hip fracture S72.002A Encounter type: initial encounter Laterality: left Documented by User: John Phillips DO 03/25/24 21:27 Physical Exam 2 Urinary Catheter Management: Ujrado: Cath Placed During This Visit: yes Data 03/22/24 04:32 03/22/24 04:32 A&P Assessment and plan (1) Closed hip fracture: Qualifiers: Encounter type: initial encounter Laterality: left Qualified Code(s): S72.002A - Fracture of unspecified part of neck of left femur, initial encounter for closed fracture Plan Plan: -Orthopedics consulted -Hospitalist admitted patient is primary -All imaging reviewed -Labs reviewed -Pain control -PT/OT -Weightbearing as tolerated to left leg -VTE prophylaxis per hospitalist Patient is 2 day postop left hip hemiarthroplasty. He is doing well and is doing physical therapy and has gotten up and ambulated today. Continue PT/OT. Orthopedic attending addendum: Patient seen and examined in addition to BHARATHI. Agree with PAs assessment and plan. He is 2 days postop left hip hemiarthroplasty. Dressing can be changed as needed at this point time will be weight-bear as tolerating left lower extremity continue to progress with therapy posterior hip precautions. Currently planning on rehab facility at discharge. Continue DVT prophylaxis. Recommendation from orthopedic standpoint will be for 35 days. Follow-up in the orthopedic office in 2 weeks. Orthopedic surgery team will sign off patient at this time follow peripherally if there is any questions pertaining patient care for for contact orthopedics on-call. All questions answered at this time. PDMP PDMP Reviewed: Not Reviewed Coding Level of Care Code Acute Code for Chg Fwd Diagnoses Closed hip fracture S72.002A Encounter type: initial encounter Laterality: left
--- NOTE | 2024-03-18 17:40 | P.PN_ITS ---
Subjective 2 Subjective: No acute events overnight. Patient has remained hemodynamically stable and afebrile. Today morning seen sitting comfortably in bed. On 2 L of supplementation. Denies any nausea, vomiting, headache. Vitals/I&O/Wt Last Vital Signs Temp 98.6 F 03/18/24 15:33 Pulse 82 03/18/24 15:33 Resp 16 03/18/24 15:33 BP 142/63 03/18/24 15:33 Pulse Ox 91 03/18/24 15:33 O2 Del Method Nasal Cannula 03/18/24 15:33 O2 Flow Rate 3 03/18/24 13:49 03/18/24 03/18/24 03/18/24 06:59 14:59 22:59 Intake Total 120 / 1246 240 / 240 Output Total 350 / 800 300 / 300 Balance -230 / 446 -60 / -60 Weight last 48 hrs Weight 91.399 kg Weight 89.675 kg Physical Exam 2 Narrative: General: No acute distress, AOx3 currently on 2 L nasal cannula. Awake and alert. HEENT: Normocephalic, atraumatic, EOMI,. Cardio: Regular rate rhythm, normal S1-S2, Respiratory: Bilateral bronchial breath sounds occasional rhonchi all over lung rivera, coarse Acra present bilateral lower zone GI: Abdomen soft, nontender, nondistended, bowel sounds + Extremities: Surgical site not examined. Patient is immediately status post surgery at this time. Urinary Catheter Management: Jurado: Cath Placed During This Visit: yes Reason for Continuing Indwelling Catheter: Perioperative Use in Selected Surgeries Urinary Catheter Date of Insertion: 03/16/24 Urinary Catheter Time of Insertion: 10:30 Data 03/18/24 05:35 03/18/24 05:35 A&P Assessment and plan (1) Closed hip fracture: Qualifiers: Encounter type: initial encounter Laterality: left Qualified Code(s): S72.002A - Fracture of unspecified part of neck of left femur, initial encounter for closed fracture (2) Hypertension: (3) Diabetes mellitus: (4) Dyskinesia, tardive: (5) Nicotine dependence, chewing tobacco, uncomplicated: (6) History of alcohol abuse: (7) First degree AV block: Plan #Left hip fracture #Hypertension #Lives at assisted living facility #Bilateral atelectasis #New oxygen requirement #New first-degree AV block Status post hip replacement. Continue physical therapy. Monitor hemoglobin. Out of bed to chair. Hydrocodone 5 mg every 6 hour as needed. Morphine 1 mg 4-hour as needed for pain control. Heparin 5000 Q12 hourly for DVT prophylaxis Hypoxia: As per patient not requiring oxygen at baseline. Oxygen supplementation keeping saturation over 90%. Appreciate recent CTA. Check procalcitonin. Low concern for superadded bacterial infection for now. Appreciate no leukocytosis for now. Hold off on IV antibiotics. Check procalcitonin, D-dimer. Appreciate recent CTA. Continue with incentive spirometry. Start on Pulmicort twice daily, DuoNeb every 6 hour. proBNP within normal limits recently. Check echocardiogram. Hypertension: Goal blood pressure less than 140/90 MAG. Continue with amlodipine 10 mg oral daily for now. Holding off on home dose of Coreg and ARB for now. Discharge plan: Plan to discharge to SNF once accepted. Awaiting level 2. Patient most likely will require authorization. Appreciate case management. Plan for the day: Follow-up echocardiogram results. Continue with physical therapy. Monitor CBC and CMP. Goal blood pressure less than 140/90 mmHg. Blood pressure slightly elevated today. Continue with home dose of amlodipine. If blood pressures remain elevated will plan to restart home dose of ARB. Holding off on Coreg. Depending on the blood pressures can restart Coreg after ARB. Oxygen supplementation keeping saturation over 90%. Continue with Pulmicort twice daily, DuoNeb every 6 hour. Regular diet Protonix for PUD prophylaxis Heparin for DVT prophylaxis PDMP PDMP Reviewed: Not Reviewed Attestations 2 Medical Necessity Statement*: Requires further hospitalization for management of postoperative care, post- ORIF, hypoxia requiring oxygen supplementation while safe discharge planning and level 2 is awaited Diagnoses Closed hip fracture S72.002A Encounter type: initial encounter Laterality: left Hypertension I10 Diabetes mellitus E11.9 Dyskinesia, tardive G24.01 Nicotine dependence, chewing tobacco, uncomplicated F17.220 History of alcohol abuse F10.11 First degree AV block I44.0
[2024-03-18] MEDS: tamsulosin 0.4 mg Capsule PO (18:05)
[2024-03-18] MEDS: trazodone 100 mg Tablet PO (20:41)
[2024-03-18] MEDS: OLANZapine 10 mg TABLET 15 MG PO (20:41)
[2024-03-18] MEDS: atorvastatin 40 mg Tablet 80 MG PO (20:42)
[2024-03-18] MEDS: donepezil 5 MG Tablet 10 MG PO (20:42)
[2024-03-18] MEDS: ketorolac 30 mg/mL INJ 15 MG IVP (20:44)
[2024-03-18 23:33] LABS: Glucose Point of Care 169 mg/dL (70-110)
[2024-03-19] VITALS (17 sets, daily range): BP systolic 117–152; BP diastolic 67–77; PULSE 72–92; RESP 14–18; TEMP 36.3–37.1; O2SAT 91–95; BMI 30.4
[2024-03-19] MEDS: ipratropium-albuterol 3 mL Neb INHALATION ×4 (02:27→19:41)
[2024-03-19] MEDS: ketorolac 30 mg/mL INJ 15 MG IVP (03:30)
[2024-03-19] MEDS: heparin 5,000 unit/mL INJ 1 mL 5000 UNIT SUBCUT ×2 (03:31→17:31)
[2024-03-19] MEDS: pantoprazole DR 40 mg Tablet PO (06:13)
[2024-03-19] MEDS: BuSPIRONE 10 mg Tablet 15 MG PO ×3 (06:13→17:33)
[2024-03-19] MEDS: TRAMadol 50 mg Tablet PO ×3 (06:13→20:37)
[2024-03-19] MEDS: amlodipine 10 mg Tablet PO (06:13)
[2024-03-19] MEDS: sertraline 100 mg Tablet 200 MG PO (06:14)
[2024-03-19 06:28] LABS: Basophils % 0.4 %; Eosinophils # 0.1 10^3/uL (0.0-0.8); Eosinophils % 1.4 %; Hematocrit 34.8 % (37-53); Lymphocytes # 1.2 10^3/uL (0.8-4.8); Lymphocytes % 14.5 %; Mean Corpuscular Hemoglobin 31.8 pg (27-33); Mean Corpuscular Volume 96.1 fl (82-101); Mean Platelet Volume 10.8 fL (7.4-10.4); Monocytes # 0.8 10^3/uL (0.2-0.9); Monocytes % 9.1 %; Neutrophils # 6.18 10^3/uL (1.8-7.7); Neutrophils % 74.1 %; Nucleated Red Blood Cells % 0 %; Platelet Count 114 10^3/cmm (157-399); Red Blood Count 3.62 10^6/uL (3.85-5.65); Red Cell Distribution Width 12.8 % (12.1-15.1); White Blood Count 8.34 10^3/uL (3.29-11.43)
[2024-03-19 06:42] LABS: Alanine Aminotransferase 63 U/L (0-41); Albumin Level 3.2 g/dL (3.5-5.2); Alkaline Phosphatase 71 U/L (40-130); Anion Gap 13.8 (5-19); Aspartate Amino Transferase 90 U/L (0-40); Blood Urea Nitrogen 20 mg/dL (8-23); Calcium 8.6 mg/dL (8.5-10.5); Carbon Dioxide 28 mmol/L (22-29); Chloride 103 mmol/L (98-107); Creatinine Clr Calc Pharmacy 80.8329; Globulin 2.7 g/dL (1.3-4.6); Glucose 153 mg/dL (65-115); Osmolality Calculated 298 mOsm/kg (285-295); Potassium 3.8 mmol/L (3.5-5.1); Sodium 141 mmol/L (136-145); Total Bilirubin 0.6 mg/dL (0.15-1.2); Total Protein 5.9 g/dL (6.6-8.7)
[2024-03-19] MEDS: budesonide 0.5 mg/2 mL Neb INHALATION ×2 (07:46→19:42)
[2024-03-19] MEDS: polyethylene glycol 3350 Pkt 17 gm PO (09:07)
[2024-03-19] MEDS: calcium carb-vit d 600mg/400unit 1 Tablet 1 EACH PO ×2 (09:08→17:31)
[2024-03-19] MEDS: iron polysaccharide complex 150 mg Capsule PO ×2 (09:08→17:31)
[2024-03-19] MEDS: tamsulosin 0.4 mg Capsule PO (09:08)
[2024-03-19] MEDS: sennosides-docusate Tablet 2 TAB PO ×2 (09:08→17:31)
[2024-03-19] MEDS: losartan 50 mg Tablet 25 MG PO (09:08)
[2024-03-19] MEDS: chlorhexidine gluconate 0.12% Btl 473 mL 30 ML MUCOUS MEM ×4 (09:09→20:37)
[2024-03-19] MEDS: mupirocin oint 22 gm 1 APPLIC NASAL ×2 (09:09→17:31)
[2024-03-19] MEDS: multivitamin therapeutic Tablet 1 TAB PO (09:09)
--- NOTE | 2024-03-19 13:51 | PC.SOCIAL ---
IMM Updated IMM dated and initialed, copy given to patient and placed in chart
--- NOTE | 2024-03-19 15:13 | P.PN_ITS ---
Subjective 2 Subjective: No new complaints. Sitting up in chair. Working with physical therapy. Vitals/I&O/Wt Last Vital Signs Temp 97.4 F L 03/19/24 11:50 Pulse 79 03/19/24 13:06 Resp 18 03/19/24 13:06 BP 119/68 03/19/24 11:50 Pulse Ox 91 03/19/24 13:06 O2 Del Method Nasal Cannula 03/19/24 13:06 O2 Flow Rate 3 03/19/24 13:06 03/19/24 03/19/24 03/19/24 06:59 14:59 22:59 Intake Total 150 / 870 840 / 840 Output Total 100 / 1000 200 / 200 Balance 50 / -130 640 / 640 Weight last 48 hrs Weight 90.718 kg Weight 91.399 kg Physical Exam 2 Narrative: General: No acute distress, AOx3 currently on 2 L nasal cannula. Awake and alert. HEENT: Normocephalic, atraumatic, EOMI,. Cardio: Regular rate rhythm, normal S1-S2, Respiratory: Bilateral bronchial breath sounds occasional rhonchi all over lung rivera, coarse Acra present bilateral lower zone GI: Abdomen soft, nontender, nondistended, bowel sounds + Extremities: Surgical site not examined. Patient is immediately status post surgery at this time. Urinary Catheter Management: Jurado: Cath Placed During This Visit: yes Reason for Continuing Indwelling Catheter: Perioperative Use in Selected Surgeries Urinary Catheter Date of Insertion: 03/16/24 Urinary Catheter Time of Insertion: 10:30 Data 03/19/24 05:39 03/19/24 05:39 A&P Assessment and plan (1) Closed hip fracture: Qualifiers: Encounter type: initial encounter Laterality: left Qualified Code(s): S72.002A - Fracture of unspecified part of neck of left femur, initial encounter for closed fracture (2) Hypertension: (3) Diabetes mellitus: (4) Dyskinesia, tardive: (5) Nicotine dependence, chewing tobacco, uncomplicated: (6) History of alcohol abuse: (7) First degree AV block: Plan #Left hip fracture #Hypertension #Lives at assisted living facility #Bilateral atelectasis #New oxygen requirement #New first-degree AV block Status post hip replacement. Continue physical therapy. Monitor hemoglobin. Out of bed to chair. Hydrocodone 5 mg every 6 hour as needed. Morphine 1 mg 4-hour as needed for pain control. Heparin 5000 Q12 hourly for DVT prophylaxis Hypoxia: As per patient not requiring oxygen at baseline. Oxygen supplementation keeping saturation over 90%. Appreciate recent CTA. Check procalcitonin. Low concern for superadded bacterial infection for now. Appreciate no leukocytosis for now. Hold off on IV antibiotics. Check procalcitonin, D-dimer. Appreciate recent CTA. Continue with incentive spirometry. Start on Pulmicort twice daily, DuoNeb every 6 hour. proBNP within normal limits recently. Check echocardiogram. Hypertension: Goal blood pressure less than 140/90 MAG. Continue with amlodipine 10 mg oral daily for now. Holding off on home dose of Coreg and ARB for now. Discharge plan: Plan to discharge to SNF once accepted. Awaiting level 2. Patient most likely will require authorization. Appreciate case management. Plan for the day: Monitor blood pressures. If trending up will restart home dose of ARB. Continue with nebulization treatment. Oxygen supplementation keeping saturation over 90%. Continues physical therapy. Lab holiday tomorrow. Regular diet Protonix for PUD prophylaxis Heparin for DVT prophylaxis PDMP PDMP Reviewed: Not Reviewed Attestations 2 Medical Necessity Statement*: Requires further hospitalization for postoperative care while safe discharge planning is sought Diagnoses Closed hip fracture S72.002A Encounter type: initial encounter Laterality: left Hypertension I10 Diabetes mellitus E11.9 Dyskinesia, tardive G24.01 Nicotine dependence, chewing tobacco, uncomplicated F17.220 History of alcohol abuse F10.11 First degree AV block I44.0
[2024-03-19] MEDS: atorvastatin 40 mg Tablet 80 MG PO (20:36)
[2024-03-19] MEDS: donepezil 5 MG Tablet 10 MG PO (20:36)
[2024-03-19] MEDS: trazodone 100 mg Tablet PO (20:37)
[2024-03-19] MEDS: OLANZapine 10 mg TABLET 15 MG PO (20:37)
[2024-03-20] VITALS (16 sets, daily range): BP systolic 111–134; BP diastolic 65–72; PULSE 87–134; RESP 16–20; TEMP 36.6–37.3; O2SAT 90–94
[2024-03-20] MEDS: ketorolac 30 mg/mL INJ 15 MG IVP (00:29)
[2024-03-20] MEDS: heparin 5,000 unit/mL INJ 1 mL 5000 UNIT SUBCUT ×2 (02:00→14:30)
[2024-03-20] MEDS: amlodipine 10 mg Tablet PO (06:06)
[2024-03-20] MEDS: sertraline 100 mg Tablet 200 MG PO (06:06)
[2024-03-20] MEDS: pantoprazole DR 40 mg Tablet PO (06:06)
[2024-03-20] MEDS: TRAMadol 50 mg Tablet PO ×3 (06:06→20:30)
[2024-03-20] MEDS: BuSPIRONE 10 mg Tablet 15 MG PO ×3 (06:07→17:01)
[2024-03-20] MEDS: ipratropium-albuterol 3 mL Neb INHALATION ×3 (07:54→20:50)
[2024-03-20] MEDS: budesonide 0.5 mg/2 mL Neb INHALATION ×2 (07:56→20:50)
[2024-03-20] MEDS: losartan 50 mg Tablet 25 MG PO (08:47)
[2024-03-20] MEDS: multivitamin therapeutic Tablet 1 TAB PO (08:47)
[2024-03-20] MEDS: iron polysaccharide complex 150 mg Capsule PO ×2 (08:47→17:01)
[2024-03-20] MEDS: sennosides-docusate Tablet 2 TAB PO ×2 (08:47→17:01)
[2024-03-20] MEDS: calcium carb-vit d 600mg/400unit 1 Tablet 1 EACH PO ×2 (08:47→17:01)
[2024-03-20] MEDS: tamsulosin 0.4 mg Capsule PO (08:47)
[2024-03-20] MEDS: mupirocin oint 22 gm 1 APPLIC NASAL ×2 (08:48→17:02)
[2024-03-20] MEDS: chlorhexidine gluconate 0.12% Btl 473 mL 30 ML MUCOUS MEM ×4 (08:48→20:31)
--- NOTE | 2024-03-20 09:29 | ECG_ITS ---
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 Measurements Intervals [place] Rate: 135 P: 0 UT: 0 QRS: -12 QRSD: 92 T: 13 QT: 298 QTc: 448 Interpretive Statements ATRIAL FIBRILLATION WITH RAPID VENTRICULAR RESPONSE Compared to ECG 03/15/2024 14:59:47 Sinus rhythm no longer present Electronically Signed On 03-20-2024 21:51:11 [employer] by Jose Bridges M.D. [email or web address]
[2024-03-20] MEDS: dilTIAZem 5 mg/mL SDV 5 mL 10 MG IVP (10:25)
[2024-03-20] MEDS: metoprolol tartrate 25 mg Tablet PO ×2 (11:57→20:30)
[2024-03-20] MEDS: metoprolol tartrate 1 mg/1 mL SDV 5 mL 5 MG IVP (11:58)
--- NOTE | 2024-03-20 13:27 | P.PN_ITS ---
Subjective 2 Subjective: No acute events overnight. Today morning while working with physical therapy patient went into A-fib with RVR with heart rate going up to 130s. Though patient was asymptomatic other than mild palpitations. On examination sitting comfortably in chair. Denies any difficulty in breathing, palpitations, chest pain. Heart rate running in 110s. Vitals/I&O/Wt Last Vital Signs Temp 98.2 F 03/20/24 11:31 Pulse 134 H 03/20/24 11:31 Resp 17 03/20/24 11:31 BP 115/65 03/20/24 11:26 Pulse Ox 93 03/20/24 11:31 O2 Del Method Nasal Cannula 03/20/24 11:31 O2 Flow Rate 2 03/20/24 07:56 03/19/24 03/20/24 03/20/24 22:59 06:59 14:59 Intake Total 680 / 1520 640 / 2160 600 / 600 Output Total 400 / 600 400 / 1000 Balance 280 / 920 240 / 1160 600 / 600 Weight last 48 hrs Weight 89.403 kg Weight 90.718 kg Physical Exam 2 Narrative: General: No acute distress, AOx3 currently on 2 L nasal cannula. Awake and alert. HEENT: Normocephalic, atraumatic, EOMI,. Cardio: Irregularly irregular, tachycardia, normal S1-S2, Respiratory: Bilateral bronchial breath sounds occasional rhonchi all over lung rivera, coarse Acra present bilateral lower zone GI: Abdomen soft, nontender, nondistended, bowel sounds + Extremities: Surgical site not examined. Patient is immediately status post surgery at this time. Urinary Catheter Management: Jurado: Cath Placed During This Visit: yes Reason for Continuing Indwelling Catheter: Perioperative Use in Selected Surgeries Urinary Catheter Date of Insertion: 03/16/24 Urinary Catheter Time of Insertion: 10:30 Data 03/19/24 05:39 03/19/24 05:39 A&P Assessment and plan (1) Closed hip fracture: Qualifiers: Encounter type: initial encounter Laterality: left Qualified Code(s): S72.002A - Fracture of unspecified part of neck of left femur, initial encounter for closed fracture (2) Hypertension: (3) Diabetes mellitus: (4) Dyskinesia, tardive: (5) Nicotine dependence, chewing tobacco, uncomplicated: (6) History of alcohol abuse: (7) First degree AV block: (8) Atrial fibrillation with RVR: New diagnosis. No past history. Received 10 mg of IV Cardizem without much help. Start on 5 mg IV metoprolol one-time along with 25 mg twice daily. Will monitor heart rate. Telemetry. Anton vas score: 3. Will continue to monitor on telemetry for now. If has recurrent runs of A-fib we will transition to Eliquis otherwise we will plan to continue with heparin for anticoagulation. Start on aspirin 325 mg daily. Plan #Left hip fracture #Hypertension #Lives at assisted living facility #Bilateral atelectasis #New oxygen requirement #New first-degree AV block Status post hip replacement. Continue physical therapy. Monitor hemoglobin. Out of bed to chair. Hydrocodone 5 mg every 6 hour as needed. Morphine 1 mg 4-hour as needed for pain control. Heparin 5000 Q12 hourly for DVT prophylaxis Hypoxia: As per patient not requiring oxygen at baseline. Oxygen supplementation keeping saturation over 90%. Appreciate recent CTA. Check procalcitonin. Low concern for superadded bacterial infection for now. Appreciate no leukocytosis for now. Hold off on IV antibiotics. Check procalcitonin, D-dimer. Appreciate recent CTA. Continue with incentive spirometry. Start on Pulmicort twice daily, DuoNeb every 6 hour. proBNP within normal limits recently. Check echocardiogram. Hypertension: Goal blood pressure less than 140/90 MAG. Continue with amlodipine 10 mg oral daily for now. Holding off on home dose of Coreg and ARB for now. Discharge plan: Plan to discharge to SNF once accepted. Awaiting level 2. Patient most likely will require authorization. Appreciate case management. Plan for the day: Management of A-fib with RVR as above. For now we will continue heparin. Hold off on Eliquis. If has recurrent episodes of A-fib we will switch on to Eliquis for anticoagulation. Monitor heart rate. Back in normal sinus rhythm. Goal blood pressure less than 140/90 mmHg. Continue with amlodipine and losartan. Physical therapy. Regular diet Protonix for PUD prophylaxis Heparin for DVT prophylaxis PDMP PDMP Reviewed: Not Reviewed Attestations 2 Medical Necessity Statement*: Requires further hospitalization for postoperative care, post-ORIF, A-fib with RVR while level 2 is awaited for safe discharge planning Diagnoses Closed hip fracture S72.002A Encounter type: initial encounter Laterality: left Hypertension I10 Diabetes mellitus E11.9 Dyskinesia, tardive G24.01 Nicotine dependence, chewing tobacco, uncomplicated F17.220 History of alcohol abuse F10.11 First degree AV block I44.0 Atrial fibrillation with RVR I48.91
[2024-03-20] MEDS: donepezil 5 MG Tablet 10 MG PO (20:29)
[2024-03-20] MEDS: OLANZapine 10 mg TABLET 15 MG PO (20:29)
[2024-03-20] MEDS: trazodone 100 mg Tablet PO (20:30)
[2024-03-20] MEDS: atorvastatin 40 mg Tablet 80 MG PO (20:30)
[2024-03-21] VITALS (16 sets, daily range): BP systolic 116–135; BP diastolic 65–78; PULSE 67–103; RESP 16–18; TEMP 36.5–37.4; O2SAT 90–95
[2024-03-21] MEDS: heparin 5,000 unit/mL INJ 1 mL 5000 UNIT SUBCUT ×2 (02:00→15:10)
[2024-03-21] MEDS: ipratropium-albuterol 3 mL Neb INHALATION ×4 (02:30→20:31)
[2024-03-21] MEDS: BuSPIRONE 10 mg Tablet 15 MG PO ×3 (06:29→17:11)
[2024-03-21] MEDS: pantoprazole DR 40 mg Tablet PO (06:29)
[2024-03-21] MEDS: sertraline 100 mg Tablet 200 MG PO (06:29)
[2024-03-21] MEDS: amlodipine 10 mg Tablet PO (06:29)
[2024-03-21] MEDS: TRAMadol 50 mg Tablet PO ×3 (06:30→20:45)
[2024-03-21] MEDS: multivitamin therapeutic Tablet 1 TAB PO (08:16)
[2024-03-21] MEDS: sennosides-docusate Tablet 2 TAB PO ×2 (08:16→17:12)
[2024-03-21] MEDS: iron polysaccharide complex 150 mg Capsule PO ×2 (08:16→17:12)
[2024-03-21] MEDS: losartan 50 mg Tablet 25 MG PO (08:16)
[2024-03-21] MEDS: tamsulosin 0.4 mg Capsule PO (08:16)
[2024-03-21] MEDS: calcium carb-vit d 600mg/400unit 1 Tablet 1 EACH PO ×2 (08:17→17:12)
[2024-03-21] MEDS: mupirocin oint 22 gm 1 APPLIC NASAL (08:17)
[2024-03-21] MEDS: chlorhexidine gluconate 0.12% Btl 473 mL 30 ML MUCOUS MEM ×4 (08:17→20:47)
[2024-03-21] MEDS: polyethylene glycol 3350 Pkt 17 gm PO (08:18)
[2024-03-21] MEDS: aspirin 325 mg Tablet PO (08:20)
[2024-03-21] MEDS: metoprolol tartrate 25 mg Tablet PO ×2 (08:20→20:45)
[2024-03-21] MEDS: budesonide 0.5 mg/2 mL Neb INHALATION ×2 (09:15→20:32)
--- NOTE | 2024-03-21 12:40 | P.PN_ITS ---
Subjective 2 Subjective: No acute events overnight. Patient denies any complaints. Has remained hemodynamically stable and afebrile. Heart rate well-controlled. Vitals/I&O/Wt Last Vital Signs Temp 98.7 F 03/21/24 11:26 Pulse 76 03/21/24 11:26 Resp 16 03/21/24 11:26 BP 116/66 03/21/24 11:26 Pulse Ox 91 03/21/24 11:26 O2 Del Method Nasal Cannula 03/21/24 11:26 O2 Flow Rate 1 03/21/24 09:15 03/20/24 03/21/24 03/21/24 22:59 06:59 14:59 Intake Total 940 / 1540 1180 / 2720 120 / 120 Output Total 675 / 675 225 / 900 Balance 265 / 865 955 / 1820 120 / 120 Weight last 48 hrs Weight 89.131 kg Weight 89.403 kg Physical Exam 2 Narrative: General: No acute distress, AOx3 currently on 2 L nasal cannula. Awake and alert. HEENT: Normocephalic, atraumatic, EOMI,. Cardio: Irregularly irregular, tachycardia, normal S1-S2, Respiratory: Bilateral bronchial breath sounds occasional rhonchi all over lung rivera, coarse Acra present bilateral lower zone GI: Abdomen soft, nontender, nondistended, bowel sounds + Extremities: Surgical site not examined. Patient is immediately status post surgery at this time. Urinary Catheter Management: Jurado: Cath Placed During This Visit: yes Reason for Continuing Indwelling Catheter: Perioperative Use in Selected Surgeries Urinary Catheter Date of Insertion: 03/16/24 Urinary Catheter Time of Insertion: 10:30 Data 03/19/24 05:39 03/19/24 05:39 A&P Assessment and plan (1) Closed hip fracture: Qualifiers: Encounter type: initial encounter Laterality: left Qualified Code(s): S72.002A - Fracture of unspecified part of neck of left femur, initial encounter for closed fracture (2) Hypertension: (3) Diabetes mellitus: (4) Dyskinesia, tardive: (5) Nicotine dependence, chewing tobacco, uncomplicated: (6) History of alcohol abuse: (7) First degree AV block: (8) Atrial fibrillation with RVR: New diagnosis. No past history. Received 10 mg of IV Cardizem without much help. Start on 5 mg IV metoprolol one-time along with 25 mg twice daily. Will monitor heart rate. Telemetry. Anton vas score: 3. Will continue to monitor on telemetry for now. If has recurrent runs of A-fib we will transition to Eliquis otherwise we will plan to continue with heparin for anticoagulation. Start on aspirin 325 mg daily. Plan #Left hip fracture #Hypertension #Lives at assisted living facility #Bilateral atelectasis #New oxygen requirement #New first-degree AV block Status post hip replacement. Continue physical therapy. Monitor hemoglobin. Out of bed to chair. Hydrocodone 5 mg every 6 hour as needed. Morphine 1 mg 4-hour as needed for pain control. Heparin 5000 Q12 hourly for DVT prophylaxis Hypoxia: As per patient not requiring oxygen at baseline. Oxygen supplementation keeping saturation over 90%. Appreciate recent CTA. Check procalcitonin. Low concern for superadded bacterial infection for now. Appreciate no leukocytosis for now. Hold off on IV antibiotics. Check procalcitonin, D-dimer. Appreciate recent CTA. Continue with incentive spirometry. Start on Pulmicort twice daily, DuoNeb every 6 hour. proBNP within normal limits recently. Check echocardiogram. Hypertension: Goal blood pressure less than 140/90 MAG. Continue with amlodipine 10 mg oral daily for now. Holding off on home dose of Coreg and ARB for now. Discharge plan: Plan to discharge to SNF once accepted. Awaiting level 2. Patient most likely will require authorization. Appreciate case management. Plan for the day: Heart rate controlled. Continue with metoprolol 25 mg twice daily. Blood pressure well-controlled. Goal less than 140/90 mmHg. Continue with losartan 25 mg oral daily, metoprolol 25 mg twice daily, amlodipine 10 mg daily. Awaiting level 2 authorization for placement to SNF. Echocardiogram shows an EF of 60% grade 1 diastolic dysfunction, mild MR. Continue with aspirin 325 mg oral daily for anticoagulation. Regular diet Protonix for PUD prophylaxis Heparin for DVT prophylaxis PDMP PDMP Reviewed: Not Reviewed Attestations 2 Medical Necessity Statement*: Requires further hospitalization for management of postoperative care, post- ORIF, A-fib with RVR while level 2 was awaited for safe discharge planning Diagnoses Closed hip fracture S72.002A Encounter type: initial encounter Laterality: left Hypertension I10 Diabetes mellitus E11.9 Dyskinesia, tardive G24.01 Nicotine dependence, chewing tobacco, uncomplicated F17.220 History of alcohol abuse F10.11 First degree AV block I44.0 Atrial fibrillation with RVR I48.91
[2024-03-21] MEDS: donepezil 5 MG Tablet 10 MG PO (20:45)
[2024-03-21] MEDS: trazodone 100 mg Tablet PO (20:45)
[2024-03-21] MEDS: OLANZapine 10 mg TABLET 15 MG PO (20:45)
[2024-03-21] MEDS: atorvastatin 40 mg Tablet 80 MG PO (20:45)
[2024-03-22] VITALS (16 sets, daily range): BP systolic 110–136; BP diastolic 60–85; PULSE 65–78; RESP 16–18; TEMP 36.5–36.8; O2SAT 92–95; BMI 30.7
[2024-03-22] MEDS: heparin 5,000 unit/mL INJ 1 mL 5000 UNIT SUBCUT ×2 (02:03→14:17)
[2024-03-22 05:18] LABS: Basophils % 0.5 %; Eosinophils # 0.2 10^3/uL (0.0-0.8); Eosinophils % 2.8 %; Hematocrit 33.1 % (37-53); Lymphocytes # 1.1 10^3/uL (0.8-4.8); Lymphocytes % 15.1 %; Mean Corpuscular Hemoglobin 31.3 pg (27-33); Mean Corpuscular Volume 97.6 fl (82-101); Mean Platelet Volume 11.4 fL (7.4-10.4); Monocytes # 0.7 10^3/uL (0.2-0.9); Monocytes % 9.2 %; Neutrophils % 71.6 %; Nucleated Red Blood Cells % 0 %; Platelet Count 140 10^3/cmm (157-399); Red Blood Count 3.39 10^6/uL (3.85-5.65); White Blood Count 7.41 10^3/uL (3.29-11.43)
[2024-03-22 05:57] LABS: Alanine Aminotransferase 101 U/L (0-41); Alkaline Phosphatase 82 U/L (40-130); Anion Gap 13.5 (5-19); Aspartate Amino Transferase 83 U/L (0-40); Blood Urea Nitrogen 13 mg/dL (8-23); Calcium 8.5 mg/dL (8.5-10.5); Carbon Dioxide 28 mmol/L (22-29); Chloride 103 mmol/L (98-107); Creatinine Clr Calc Pharmacy 80.9275; Glucose 173 mg/dL (65-115); Osmolality Calculated 296 mOsm/kg (285-295); Potassium 3.5 mmol/L (3.5-5.1); Sodium 141 mmol/L (136-145); Total Bilirubin 0.7 mg/dL (0.15-1.2)
[2024-03-22] MEDS: pantoprazole DR 40 mg Tablet PO (06:25)
[2024-03-22] MEDS: TRAMadol 50 mg Tablet PO ×3 (06:25→20:03)
[2024-03-22] MEDS: sertraline 100 mg Tablet 200 MG PO (06:25)
[2024-03-22] MEDS: BuSPIRONE 10 mg Tablet 15 MG PO ×3 (06:25→18:08)
[2024-03-22] MEDS: amlodipine 10 mg Tablet PO (06:26)
[2024-03-22] MEDS: budesonide 0.5 mg/2 mL Neb INHALATION ×2 (08:37→19:25)
[2024-03-22] MEDS: ipratropium-albuterol 3 mL Neb INHALATION ×3 (08:37→19:25)
[2024-03-22] MEDS: losartan 50 mg Tablet 25 MG PO (08:51)
[2024-03-22] MEDS: iron polysaccharide complex 150 mg Capsule PO ×2 (08:51→18:08)
[2024-03-22] MEDS: HYDROcodone-acetaminophen 5-325 mg Tablet 1 TAB PO (08:51)
[2024-03-22] MEDS: multivitamin therapeutic Tablet 1 TAB PO (08:52)
[2024-03-22] MEDS: calcium carb-vit d 600mg/400unit 1 Tablet 1 EACH PO ×2 (08:52→18:08)
[2024-03-22] MEDS: metoprolol tartrate 25 mg Tablet PO ×2 (08:52→20:03)
[2024-03-22] MEDS: sennosides-docusate Tablet 2 TAB PO (08:52)
[2024-03-22] MEDS: tamsulosin 0.4 mg Capsule PO (08:52)
[2024-03-22] MEDS: aspirin 325 mg Tablet PO (08:52)
--- NOTE | 2024-03-22 15:02 | P.PN_ITS ---
Subjective 2 Subjective: Status quo. No new complaints. Sleeping comfortably in bed. Vitals/I&O/Wt Last Vital Signs Temp 97.7 F 03/22/24 11:10 Pulse 68 03/22/24 13:46 Resp 16 03/22/24 13:42 BP 110/63 03/22/24 11:10 Pulse Ox 93 03/22/24 13:42 O2 Del Method Nasal Cannula 03/22/24 13:42 O2 Flow Rate 3 03/22/24 13:42 03/22/24 03/22/24 03/22/24 06:59 14:59 22:59 Intake Total 480 / 1200 480 / 480 Output Total 400 / 700 Balance 80 / 500 480 / 480 Weight last 48 hrs Weight 91.626 kg Weight 89.131 kg Physical Exam 2 Narrative: General: No acute distress, AOx3 currently on 2 L nasal cannula. Awake and alert. HEENT: Normocephalic, atraumatic, EOMI,. Cardio: Irregularly irregular, tachycardia, normal S1-S2, Respiratory: Bilateral bronchial breath sounds occasional rhonchi all over lung rivera, coarse Acra present bilateral lower zone GI: Abdomen soft, nontender, nondistended, bowel sounds + Extremities: Surgical site not examined. Patient is immediately status post surgery at this time. Urinary Catheter Management: Jurado: Cath Placed During This Visit: yes Reason for Continuing Indwelling Catheter: Perioperative Use in Selected Surgeries Urinary Catheter Date of Insertion: 03/16/24 Urinary Catheter Time of Insertion: 10:30 Data 03/22/24 04:32 03/22/24 04:32 A&P Assessment and plan (1) Closed hip fracture: Qualifiers: Encounter type: initial encounter Laterality: left Qualified Code(s): S72.002A - Fracture of unspecified part of neck of left femur, initial encounter for closed fracture (2) Hypertension: (3) Diabetes mellitus: (4) Dyskinesia, tardive: (5) Nicotine dependence, chewing tobacco, uncomplicated: (6) History of alcohol abuse: (7) First degree AV block: (8) Atrial fibrillation with RVR: New diagnosis. No past history. Received 10 mg of IV Cardizem without much help. Start on 5 mg IV metoprolol one-time along with 25 mg twice daily. Will monitor heart rate. Telemetry. Anton vas score: 3. Will continue to monitor on telemetry for now. If has recurrent runs of A-fib we will transition to Eliquis otherwise we will plan to continue with heparin for anticoagulation. Start on aspirin 325 mg daily. Plan #Left hip fracture #Hypertension #Lives at assisted living facility #Bilateral atelectasis #New oxygen requirement #New first-degree AV block Status post hip replacement. Continue physical therapy. Monitor hemoglobin. Out of bed to chair. Hydrocodone 5 mg every 6 hour as needed. Morphine 1 mg 4-hour as needed for pain control. Heparin 5000 Q12 hourly for DVT prophylaxis Hypoxia: As per patient not requiring oxygen at baseline. Oxygen supplementation keeping saturation over 90%. Appreciate recent CTA. Check procalcitonin. Low concern for superadded bacterial infection for now. Appreciate no leukocytosis for now. Hold off on IV antibiotics. Check procalcitonin, D-dimer. Appreciate recent CTA. Continue with incentive spirometry. Start on Pulmicort twice daily, DuoNeb every 6 hour. proBNP within normal limits recently. Check echocardiogram. Hypertension: Goal blood pressure less than 140/90 MAG. Continue with amlodipine 10 mg oral daily for now. Holding off on home dose of Coreg and ARB for now. Discharge plan: Plan to discharge to SNF once accepted. Awaiting level 2. Patient most likely will require authorization. Appreciate case management. Plan for the day: Appreciate labs. Has remained hemodynamically stable and afebrile. Continue with current dose of losartan and metoprolol. Awaiting level 2. Lab holiday tomorrow. Regular diet Protonix for PUD prophylaxis Heparin for DVT prophylaxis PDMP PDMP Reviewed: Not Reviewed Attestations 2 Medical Necessity Statement*: Requires further hospitalization while level 2 is awaited in a patient whose postoperative, post-ORIF Diagnoses Closed hip fracture S72.002A Encounter type: initial encounter Laterality: left Hypertension I10 Diabetes mellitus E11.9 Dyskinesia, tardive G24.01 Nicotine dependence, chewing tobacco, uncomplicated F17.220 History of alcohol abuse F10.11 First degree AV block I44.0 Atrial fibrillation with RVR I48.91
[2024-03-22] MEDS: atorvastatin 40 mg Tablet 80 MG PO (20:02)
[2024-03-22] MEDS: OLANZapine 10 mg TABLET 15 MG PO (20:03)
[2024-03-22] MEDS: trazodone 100 mg Tablet PO (20:03)
[2024-03-22] MEDS: donepezil 5 MG Tablet 10 MG PO (20:03)
[2024-03-22] MEDS: chlorhexidine gluconate 0.12% Btl 473 mL 30 ML MUCOUS MEM (20:05)
[2024-03-23] VITALS (13 sets, daily range): BP systolic 117–167; BP diastolic 64–76; PULSE 64–82; RESP 15–18; TEMP 36.6–37.3; O2SAT 90–96
[2024-03-23] MEDS: heparin 5,000 unit/mL INJ 1 mL 5000 UNIT SUBCUT ×2 (01:32→16:56)
[2024-03-23] MEDS: TRAMadol 50 mg Tablet PO ×3 (06:18→20:16)
[2024-03-23] MEDS: BuSPIRONE 10 mg Tablet 15 MG PO ×3 (06:18→16:54)
[2024-03-23] MEDS: sertraline 100 mg Tablet 200 MG PO (06:18)
[2024-03-23] MEDS: pantoprazole DR 40 mg Tablet PO (06:19)
[2024-03-23] MEDS: amlodipine 10 mg Tablet PO (06:19)
[2024-03-23] MEDS: ipratropium-albuterol 3 mL Neb INHALATION ×3 (08:23→21:02)
[2024-03-23] MEDS: budesonide 0.5 mg/2 mL Neb INHALATION ×2 (08:23→21:02)
[2024-03-23] MEDS: sennosides-docusate Tablet 2 TAB PO ×2 (08:49→16:55)
[2024-03-23] MEDS: polyethylene glycol 3350 Pkt 17 gm PO (08:50)
[2024-03-23] MEDS: tamsulosin 0.4 mg Capsule PO (08:50)
[2024-03-23] MEDS: calcium carb-vit d 600mg/400unit 1 Tablet 1 EACH PO ×2 (08:50→16:56)
[2024-03-23] MEDS: losartan 50 mg Tablet 25 MG PO (08:50)
[2024-03-23] MEDS: aspirin 325 mg Tablet PO (08:50)
[2024-03-23] MEDS: iron polysaccharide complex 150 mg Capsule PO ×2 (08:51→16:55)
[2024-03-23] MEDS: HYDROcodone-acetaminophen 5-325 mg Tablet 1 TAB PO ×2 (08:51→23:58)
[2024-03-23] MEDS: metoprolol tartrate 25 mg Tablet PO ×2 (08:52→20:16)
[2024-03-23] MEDS: multivitamin therapeutic Tablet 1 TAB PO (08:52)
[2024-03-23] MEDS: chlorhexidine gluconate 0.12% Btl 473 mL 30 ML MUCOUS MEM ×4 (09:03→20:18)
--- NOTE | 2024-03-23 14:57 | P.PN_ITS ---
Subjective 2 Subjective: No acute vents overnight. Has remained medically stable and afebrile. Sitting comfortably in bed today. Today morning seen on 1 L of oxygen supplementation. Vitals/I&O/Wt Last Vital Signs Temp 98.1 F 03/23/24 12:00 Pulse 71 03/23/24 13:04 Resp 18 03/23/24 13:04 BP 136/75 03/23/24 12:00 Pulse Ox 92 03/23/24 13:04 O2 Del Method Room Air 03/23/24 13:04 O2 Flow Rate 2 03/23/24 08:24 03/22/24 03/23/24 03/23/24 22:59 06:59 14:59 Intake Total 920 / 1400 120 / 1520 240 / 240 Output Total 1300 / 1300 500 / 1800 Balance -380 / 100 -380 / -280 240 / 240 Weight last 48 hrs Weight 91.626 kg Weight 91.626 kg Physical Exam 2 Narrative: General: No acute distress, AOx3 currently on 1 L nasal cannula. Awake and alert. HEENT: Normocephalic, atraumatic, EOMI,. Cardio: Irregularly irregular, tachycardia, normal S1-S2, Respiratory: Bilateral bronchial breath sounds occasional rhonchi all over lung rivera, coarse Acra present bilateral lower zone GI: Abdomen soft, nontender, nondistended, bowel sounds + Extremities: Surgical site not examined. Patient is immediately status post surgery at this time. Urinary Catheter Management: Jurado: Cath Placed During This Visit: yes Reason for Continuing Indwelling Catheter: Perioperative Use in Selected Surgeries Urinary Catheter Date of Insertion: 03/16/24 Urinary Catheter Time of Insertion: 10:30 Data 03/22/24 04:32 03/22/24 04:32 A&P Assessment and plan (1) Closed hip fracture: Qualifiers: Encounter type: initial encounter Laterality: left Qualified Code(s): S72.002A - Fracture of unspecified part of neck of left femur, initial encounter for closed fracture (2) Hypertension: (3) Diabetes mellitus: (4) Dyskinesia, tardive: (5) Nicotine dependence, chewing tobacco, uncomplicated: (6) History of alcohol abuse: (7) First degree AV block: (8) Atrial fibrillation with RVR: New diagnosis. No past history. Received 10 mg of IV Cardizem without much help. Start on 5 mg IV metoprolol one-time along with 25 mg twice daily. Will monitor heart rate. Telemetry. Anton vas score: 3. Will continue to monitor on telemetry for now. If has recurrent runs of A-fib we will transition to Eliquis otherwise we will plan to continue with heparin for anticoagulation. Start on aspirin 325 mg daily. Plan #Left hip fracture #Hypertension #Lives at assisted living facility #Bilateral atelectasis #New oxygen requirement #New first-degree AV block Status post hip replacement. Continue physical therapy. Monitor hemoglobin. Out of bed to chair. Hydrocodone 5 mg every 6 hour as needed. Morphine 1 mg 4-hour as needed for pain control. Heparin 5000 Q12 hourly for DVT prophylaxis Hypoxia: As per patient not requiring oxygen at baseline. Oxygen supplementation keeping saturation over 90%. Appreciate recent CTA. Check procalcitonin. Low concern for superadded bacterial infection for now. Appreciate no leukocytosis for now. Hold off on IV antibiotics. Check procalcitonin, D-dimer. Appreciate recent CTA. Continue with incentive spirometry. Start on Pulmicort twice daily, DuoNeb every 6 hour. proBNP within normal limits recently. Check echocardiogram. Hypertension: Goal blood pressure less than 140/90 MAG. Continue with amlodipine 10 mg oral daily, metoprolol 25 mg twice daily. Holding off on ARB. Discharge plan: Plan to discharge to SNF once accepted. Awaiting level 2. Patient most likely will require authorization. Appreciate case management. Plan for the day: Lab holiday tomorrow. Working with physical therapy. Heart rate well-controlled. Continue with current dose of metoprolol. Awaiting level 2. Regular diet Protonix for PUD prophylaxis Heparin for DVT prophylaxis PDMP PDMP Reviewed: Not Reviewed Attestations 2 Medical Necessity Statement*: Requires further hospitalization while level 2 is awaited and patient who is post-ORIF Diagnoses Closed hip fracture S72.002A Encounter type: initial encounter Laterality: left Hypertension I10 Diabetes mellitus E11.9 Dyskinesia, tardive G24.01 Nicotine dependence, chewing tobacco, uncomplicated F17.220 History of alcohol abuse F10.11 First degree AV block I44.0 Atrial fibrillation with RVR I48.91
[2024-03-23] MEDS: OLANZapine 10 mg TABLET 15 MG PO (20:15)
[2024-03-23] MEDS: trazodone 100 mg Tablet PO (20:15)
[2024-03-23] MEDS: atorvastatin 40 mg Tablet 80 MG PO (20:15)
[2024-03-23] MEDS: donepezil 5 MG Tablet 10 MG PO (20:16)
[2024-03-24] VITALS (13 sets, daily range): BP systolic 109–135; BP diastolic 55–78; PULSE 59–75; RESP 16–19; TEMP 36.3–36.7; O2SAT 92–95
[2024-03-24] MEDS: heparin 5,000 unit/mL INJ 1 mL 5000 UNIT SUBCUT ×2 (02:20→14:44)
[2024-03-24] MEDS: ipratropium-albuterol 3 mL Neb INHALATION ×4 (02:35→21:00)
[2024-03-24] MEDS: BuSPIRONE 10 mg Tablet 15 MG PO ×3 (06:03→18:02)
[2024-03-24] MEDS: sertraline 100 mg Tablet 200 MG PO (06:03)
[2024-03-24] MEDS: amlodipine 10 mg Tablet PO (06:03)
[2024-03-24] MEDS: TRAMadol 50 mg Tablet PO ×3 (06:03→21:20)
[2024-03-24] MEDS: pantoprazole DR 40 mg Tablet PO (06:03)
[2024-03-24] MEDS: budesonide 0.5 mg/2 mL Neb INHALATION ×2 (07:30→21:00)
--- NOTE | 2024-03-24 08:12 | P.PN_ITS ---
Subjective 2 Subjective: Patient worked with PT, not complaining of active pain, laying supine Currently on 2 L nasal cannula No overnight events Vitals/I&O/Wt Last Vital Signs Temp 97.7 F 03/24/24 04:34 Pulse 67 03/24/24 07:32 Resp 18 03/24/24 07:32 BP 109/59 03/24/24 04:34 Pulse Ox 93 03/24/24 07:32 O2 Del Method Nasal Cannula 03/24/24 07:32 O2 Flow Rate 2 03/24/24 07:32 03/23/24 03/24/24 03/24/24 22:59 06:59 14:59 Intake Total 540 / 900 480 / 1380 Output Total 250 / 250 600 / 850 Balance 290 / 650 -120 / 530 Weight last 48 hrs Weight 92.125 kg Weight 91.626 kg Physical Exam 2 Narrative: Laying supine Euvolemic Surgical site no active drainage Pleasant cough Nonfocal neuroexam Pleasant and cooperative Currently on 2 L Abdomen soft No active focal deficit S1, S2 Urinary Catheter Management: Jurado: Cath Placed During This Visit: yes Reason for Continuing Indwelling Catheter: Perioperative Use in Selected Surgeries Urinary Catheter Date of Insertion: 03/16/24 Urinary Catheter Time of Insertion: 10:30 Data 03/22/24 04:32 03/22/24 04:32 A&P Assessment and plan (1) Schizoaffective disorder, bipolar type: (2) Hypertension: (3) First degree AV block: (4) Atrial fibrillation with RVR: (5) Diabetes mellitus: (6) Primary osteoarthritis of right knee: (7) Dyskinesia, tardive: (8) Closed hip fracture: Qualifiers: Encounter type: initial encounter Laterality: left Qualified Code(s): S72.002A - Fracture of unspecified part of neck of left femur, initial encounter for closed fracture (9) Nicotine dependence, chewing tobacco, uncomplicated: (10) Hypoxia: Plan Postoperative atelectasis requiring oxygen up to 2 L Awaiting level 2 authorization for SNF placement No active signs of withdrawal Status post hip replacement Continue physical therapy, opioids, bowel regimen DVT prophylaxis Continue spirometer PDMP PDMP Reviewed: Not Reviewed Attestations 2 Medical Necessity Statement*: Awaiting placement Diagnoses Schizoaffective disorder, bipolar type F25.0 Hypertension I10 First degree AV block I44.0 Atrial fibrillation with RVR I48.91 Diabetes mellitus E11.9 Primary osteoarthritis of right knee M17.11 Dyskinesia, tardive G24.01 Closed hip fracture S72.002A Encounter type: initial encounter Laterality: left Nicotine dependence, chewing tobacco, uncomplicated F17.220 Hypoxia R09.02
[2024-03-24] MEDS: metoprolol tartrate 25 mg Tablet PO ×2 (09:05→21:20)
[2024-03-24] MEDS: multivitamin therapeutic Tablet 1 TAB PO (09:05)
[2024-03-24] MEDS: calcium carb-vit d 600mg/400unit 1 Tablet 1 EACH PO ×2 (09:05→18:02)
[2024-03-24] MEDS: sennosides-docusate Tablet 2 TAB PO ×2 (09:05→18:02)
[2024-03-24] MEDS: aspirin 325 mg Tablet PO (09:05)
[2024-03-24] MEDS: iron polysaccharide complex 150 mg Capsule PO ×2 (09:05→18:03)
[2024-03-24] MEDS: losartan 50 mg Tablet 25 MG PO (09:06)
[2024-03-24] MEDS: chlorhexidine gluconate 0.12% Btl 473 mL 30 ML MUCOUS MEM ×4 (09:06→21:21)
[2024-03-24] MEDS: tamsulosin 0.4 mg Capsule PO (09:06)
[2024-03-24] MEDS: HYDROcodone-acetaminophen 5-325 mg Tablet 1 TAB PO ×2 (09:12→18:02)
--- NOTE | 2024-03-24 15:37 | PC.SOCIAL ---
IMM Updated Updated pt on IMM. No questions voiced. Provided pt a copy. Initialed, dated, & timed copy in chart.
[2024-03-24] MEDS: donepezil 5 MG Tablet 10 MG PO (21:20)
[2024-03-24] MEDS: atorvastatin 40 mg Tablet 80 MG PO (21:20)
[2024-03-24] MEDS: OLANZapine 10 mg TABLET 15 MG PO (21:20)
[2024-03-24] MEDS: trazodone 100 mg Tablet PO (21:21)
[2024-03-25] VITALS (14 sets, daily range): BP systolic 107–150; BP diastolic 60–77; PULSE 62–91; RESP 16–20; TEMP 36.4–36.9; O2SAT 90–94
[2024-03-25] MEDS: ipratropium-albuterol 3 mL Neb INHALATION ×3 (01:07→14:20)
[2024-03-25] MEDS: HYDROcodone-acetaminophen 5-325 mg Tablet 1 TAB PO ×2 (01:33→09:12)
[2024-03-25] MEDS: heparin 5,000 unit/mL INJ 1 mL 5000 UNIT SUBCUT ×2 (01:33→13:42)
[2024-03-25] MEDS: TRAMadol 50 mg Tablet PO ×3 (06:37→21:24)
[2024-03-25] MEDS: BuSPIRONE 10 mg Tablet 15 MG PO ×3 (06:37→16:41)
[2024-03-25] MEDS: pantoprazole DR 40 mg Tablet PO (06:37)
[2024-03-25] MEDS: amlodipine 10 mg Tablet PO (06:37)
[2024-03-25] MEDS: sertraline 100 mg Tablet 200 MG PO (06:37)
[2024-03-25] MEDS: budesonide 0.5 mg/2 mL Neb INHALATION (09:01)
[2024-03-25] MEDS: polyethylene glycol 3350 Pkt 17 gm PO (09:11)
[2024-03-25] MEDS: calcium carb-vit d 600mg/400unit 1 Tablet 1 EACH PO ×2 (09:11→16:41)
[2024-03-25] MEDS: iron polysaccharide complex 150 mg Capsule PO ×2 (09:12→16:40)
[2024-03-25] MEDS: metoprolol tartrate 25 mg Tablet PO ×2 (09:12→21:24)
[2024-03-25] MEDS: sennosides-docusate Tablet 2 TAB PO ×2 (09:12→16:40)
[2024-03-25] MEDS: tamsulosin 0.4 mg Capsule PO (09:12)
[2024-03-25] MEDS: multivitamin therapeutic Tablet 1 TAB PO (09:12)
[2024-03-25] MEDS: aspirin 325 mg Tablet PO (09:12)
[2024-03-25] MEDS: losartan 50 mg Tablet 25 MG PO (09:12)
[2024-03-25] MEDS: chlorhexidine gluconate 0.12% Btl 473 mL 30 ML MUCOUS MEM ×4 (09:15→21:26)
--- NOTE | 2024-03-25 13:08 | PC.NURSE ---
Report given to Elizabeth Kelly RN. All questions answered. Patient care will now be turned over to this nurse.
--- NOTE | 2024-03-25 16:23 | P.PN_ITS ---
Subjective 2 Subjective: Patient awaiting placement Developed rash around his groin and back Added nystatin, given lactulose Vitals/I&O/Wt Last Vital Signs Temp 97.5 F L 03/25/24 15:50 Pulse 91 03/25/24 15:50 Resp 17 03/25/24 15:50 BP 130/60 03/25/24 15:50 Pulse Ox 92 03/25/24 15:50 O2 Del Method Room Air 03/25/24 15:50 O2 Flow Rate 2 03/25/24 09:03 03/25/24 03/25/24 03/25/24 06:59 14:59 22:59 Intake Total 360 / 1320 840 / 840 Output Total 300 / 1075 Balance 60 / 245 840 / 840 Weight last 48 hrs Weight 93.259 kg Weight 92.125 kg Physical Exam 2 Narrative: Awake and alert GCS 15 Fungal rash around groin Heat rash on the back GCS 15 Wake and alert Pleasant cooperative Hemodynamically stable Currently on room air Urinary Catheter Management: Jurado: Cath Placed During This Visit: yes Reason for Continuing Indwelling Catheter: Perioperative Use in Selected Surgeries Urinary Catheter Date of Insertion: 03/16/24 Urinary Catheter Time of Insertion: 10:30 Data 03/22/24 04:32 03/22/24 04:32 A&P Assessment and plan (1) First degree AV block: (2) Alcohol dependence, in remission: (3) Closed hip fracture: Qualifiers: Encounter type: initial encounter Laterality: left Qualified Code(s): S72.002A - Fracture of unspecified part of neck of left femur, initial encounter for closed fracture (4) Dyskinesia, tardive: (5) Nicotine dependence, chewing tobacco, uncomplicated: Plan Awaiting placement Developed heat rash staying on the bed I do not see any sign of cellulitis For fungal rash around groin I will add nystatin Constipation: Added lactulose Continue antihypertensive regimen DVT prophylaxis on board Opioids along bowel regimen Hypoxia postop secondary to atelectasis, improved currently patient is on room air Came from assisted living, will be discharged to a senior living once accepted PDMP PDMP Reviewed: Not Reviewed Attestations 2 Medical Necessity Statement*: Awaiting placement Diagnoses First degree AV block I44.0 Alcohol dependence, in remission F10.21 Closed hip fracture S72.002A Encounter type: initial encounter Laterality: left Dyskinesia, tardive G24.01 Nicotine dependence, chewing tobacco, uncomplicated F17.220
[2024-03-25] MEDS: nystatin powder 15 gm Btl 1 APPLIC TOPICAL (16:41)
[2024-03-25] MEDS: donepezil 5 MG Tablet 10 MG PO (21:24)
[2024-03-25] MEDS: apixaban 5 mg Tablet PO (21:24)
[2024-03-25] MEDS: trazodone 100 mg Tablet PO (21:24)
[2024-03-25] MEDS: atorvastatin 40 mg Tablet 80 MG PO (21:24)
[2024-03-25] MEDS: OLANZapine 10 mg TABLET 15 MG PO (21:24)
[2024-03-26] VITALS (9 sets, daily range): BP systolic 117–146; BP diastolic 63–76; PULSE 62–90; RESP 16–18; TEMP 36.7–36.9; O2SAT 89–93
[2024-03-26] MEDS: ipratropium-albuterol 3 mL Neb INHALATION ×2 (01:29→13:42)
[2024-03-26] MEDS: heparin 5,000 unit/mL INJ 1 mL 5000 UNIT SUBCUT (02:31)
[2024-03-26] MEDS: BuSPIRONE 10 mg Tablet 15 MG PO ×2 (05:52→11:48)
[2024-03-26] MEDS: sertraline 100 mg Tablet 200 MG PO (05:52)
[2024-03-26] MEDS: pantoprazole DR 40 mg Tablet PO (05:52)
[2024-03-26] MEDS: amlodipine 10 mg Tablet PO (05:52)
[2024-03-26] MEDS: TRAMadol 50 mg Tablet PO ×2 (05:52→11:48)
[2024-03-26] MEDS: tamsulosin 0.4 mg Capsule PO (08:06)
[2024-03-26] MEDS: calcium carb-vit d 600mg/400unit 1 Tablet 1 EACH PO (08:06)
[2024-03-26] MEDS: losartan 50 mg Tablet 25 MG PO (08:06)
[2024-03-26] MEDS: multivitamin therapeutic Tablet 1 TAB PO (08:06)
[2024-03-26] MEDS: HYDROcodone-acetaminophen 5-325 mg Tablet 1 TAB PO (08:06)
[2024-03-26] MEDS: apixaban 5 mg Tablet PO (08:06)
[2024-03-26] MEDS: metoprolol tartrate 25 mg Tablet PO (08:07)
[2024-03-26] MEDS: chlorhexidine gluconate 0.12% Btl 473 mL 30 ML MUCOUS MEM ×2 (08:07→11:48)
[2024-03-26] MEDS: iron polysaccharide complex 150 mg Capsule PO (08:07)
[2024-03-26] MEDS: sennosides-docusate Tablet 2 TAB PO (08:07)
[2024-03-26] MEDS: nystatin powder 15 gm Btl 1 APPLIC TOPICAL (08:08)
--- NOTE | 2024-03-26 09:05 | PC.SOCIAL ---
IMM Updated Updated pt on IMM. No questions voiced. Provided pt a copy. Initialed, dated, & timed copy in chart.
--- NOTE | 2024-03-26 12:27 | P.PN_ITS ---
Subjective 2 Subjective: Awake and alert No worsening of rash No fever Off oxygen currently on room air Patient not endorsing any new complaints Had 1 bowel movement yesterday Vitals/I&O/Wt Last Vital Signs Temp 98.5 F 03/26/24 08:38 Pulse 73 03/26/24 08:38 Resp 18 03/26/24 08:38 BP 117/67 03/26/24 08:38 Pulse Ox 91 03/26/24 08:38 O2 Del Method Room Air 03/26/24 08:38 O2 Flow Rate 2 03/25/24 09:03 03/25/24 03/26/24 03/26/24 22:59 06:59 14:59 Intake Total 640 / 1480 1240 / 2720 540 / 540 Output Total 450 / 450 475 / 925 200 / 200 Balance 190 / 1030 765 / 1795 340 / 340 Weight last 48 hrs Weight 90.628 kg Weight 93.259 kg Physical Exam 2 Narrative: No worsening of rash Patient not complaining of significant itching No signs of infection Hemodynamically stable Currently on room air Euvolemic Pleasant and cooperative AO x 4 Urinary Catheter Management: Jurado: Cath Placed During This Visit: yes Reason for Continuing Indwelling Catheter: Perioperative Use in Selected Surgeries Urinary Catheter Date of Insertion: 03/16/24 Urinary Catheter Time of Insertion: 10:30 Data 03/22/24 04:32 03/22/24 04:32 A&P Assessment and plan (1) Alcohol dependence, in remission: (2) Hypertension: (3) First degree AV block: (4) Diabetes mellitus: (5) Closed hip fracture: Qualifiers: Encounter type: initial encounter Laterality: left Qualified Code(s): S72.002A - Fracture of unspecified part of neck of left femur, initial encounter for closed fracture (6) Dyskinesia, tardive: (7) Hypoxia: (8) Nicotine dependence, chewing tobacco, uncomplicated: Plan I touched base with social studies department chair/registered nurse hh case manager: We are waiting for prior authorization to send patient to custodial, he is medically stable, off oxygen, Postop atelectasis: Improved Constipation: ImProved patient had 1 bowel movement yesterday Continue opioids with bowel regimen Continue thiamine Patient working very well with physical therapy since his hip surgery skin rash without any sign of cellulitis: Likely heat rash from the bedsheet, I did nystatin for groin fold rash Hip fracture status post intervention 03/16/2024 left hip hemiarthroplasty PDMP PDMP Reviewed: Not Reviewed Attestations 2 Medical Necessity Statement*: Awaiting placement Diagnoses Alcohol dependence, in remission F10.21 Hypertension I10 First degree AV block I44.0 Diabetes mellitus E11.9 Closed hip fracture S72.002A Encounter type: initial encounter Laterality: left Dyskinesia, tardive G24.01 Hypoxia R09.02 Nicotine dependence, chewing tobacco, uncomplicated F17.220
--- NOTE | 2024-03-26 12:37 | PM.DCS ---
Discharge Providers Date of Admission: 03/15/24 12:17 Date of Discharge: March 25, 2024 Attending Provider at Admission: Paz Kumar MD Attending Provider at Discharge: Bj Smiley MD Diagnoses at Discharge Discharge Diagnosis (1) Schizoaffective disorder, bipolar type: Status: Acute (2) Hypertension: Status: Acute (3) First degree AV block: Status: Acute (4) Atrial fibrillation with RVR: Status: Acute (5) Diabetes mellitus: Status: Acute (6) Primary osteoarthritis of right knee: Status: Acute (7) Dyskinesia, tardive: Status: Acute (8) Closed hip fracture: Status: Acute Qualifiers: Encounter type: initial encounter Laterality: left Qualified Code(s): S72.002A - Fracture of unspecified part of neck of left femur, initial encounter for closed fracture (9) Nicotine dependence, chewing tobacco, uncomplicated: Status: Acute (10) Hypoxia: Status: Acute Reason for Visit Reason for Visit: left hip pain s/p fall Hospital Course Hospital Course 78-year-old male who presented from assisted living to the hospital for management evaluation of closed left hip fracture,, patient went forLeft hip hemiarthroplasty 03/16/2024, postoperatively developed hypoxia secondary to atelectasis requiring 2 L of oxygen, patient will be discharged to a retirement, level 2 authorization was requested. Patient has history of hypertension diabetes tardive dyskinesia first-degree AV block, patient developed A-fib as well Anton Vascor is 3, Will be discharged on Eliquis, patient did well with physical therapy, for his fungal rash around groin and perineal area nystatin powder were used, given lactulose for constipation Physical Exam Narrative: Awake and alert GCS 15 AO x 4 Currently on regular diet Nonfocal neuroexam Currently on 2 L Urinary Catheter Management: Jurado: Cath Placed During This Visit: yes Reason for Continuing Indwelling Catheter: Perioperative Use in Selected Surgeries Urinary Catheter Date of Insertion: 03/16/24 Urinary Catheter Time of Insertion: 10:30 Discharge Data Studies Completed and Pending Completed Studies During Hospitalization Category Date Time Status CT head wo con* [id number] Stat Cat Scan 03/15/24 10:40 Completed CTA chest [CT angio chest PE protcl [id number]] Stat Cat Scan 03/16/24 08:36 Completed XR chest 1V portable [id number] Stat Exams 03/15/24 10:40 Completed XR femur LT min 2V* [id number] Stat Exams 03/15/24 11:51 Completed XR hip LT 2-3V wo/w pel* [id number] Routine Exams 03/16/24 11:53 Completed XR pelvis 1-2V* [id number] Stat Exams 03/15/24 10:41 Completed CV. echo complete* [id number] Routine Ultrasound 03/17/24 18:23 Completed Radiology Impressions Chest X-Ray 03/15/24 10:40 IMPRESSION: Reticular opacities in the left lower lung zone that might represent atelectasis versus infiltrates. Head CT 03/15/24 10:40 IMPRESSION: No large territorial infarct or intracranial bleed. Pelvis X-Ray 03/15/24 10:41 IMPRESSION: Left femoral basicervical fracture with varus angulation. Femur X-Ray 03/15/24 11:51 IMPRESSION: Left basicervical femoral fracture with varus angulation. Chest CTA 03/16/24 08:36 IMPRESSION: 1. Trace pleural effusions. 2. Dependent airspace disease bilaterally. There is also airspace disease involving the lingula. Findings are felt in part be related to atelectasis. A component of pneumonia can not be excluded. Hip/Pelvis X-Ray 03/16/24 11:53 IMPRESSION: Post left hip hemiarthroplasty with no immediate complications. Laboratory Results WBC 7.41 10^3/uL (3.29-11.43) 03/22/24 04:32 RBC 3.39 10^6/uL (3.85-5.65) L 03/22/24 04:32 Hgb 10.60 g/dL (11.27-16.99) L 03/22/24 04:32 Hct 33.1 % (37-53) L 03/22/24 04:32 MCV 97.6 fl (82-101) 03/22/24 04:32 MCH 31.3 pg (27-33) 03/22/24 04:32 MCHC 32.0 g/dL (30-55) 03/22/24 04:32 RDW 13.0 % (12.1-15.1) 03/22/24 04:32 Plt Count 140 10^3/cmm (157-399) L 03/22/24 04:32 MPV 11.4 fL (7.4-10.4) H 03/22/24 04:32 Neut % (Auto) 71.6 % 03/22/24 04:32 Lymph % (Auto) 15.1 % 03/22/24 04:32 Butts % (Auto) 9.2 % 03/22/24 04:32 Eos % (Auto) 2.8 % 03/22/24 04:32 Baso % (Auto) 0.5 % 03/22/24 04:32 Neut # (Auto) 5.30 10^3/uL (1.8-7.7) 03/22/24 04:32 Lymph # (Auto) 1.1 10^3/uL (0.8-4.8) 03/22/24 04:32 Butts # (Auto) 0.7 10^3/uL (0.2-0.9) 03/22/24 04:32 Eos # (Auto) 0.2 10^3/uL (0.0-0.8) 03/22/24 04:32 Baso # (Auto) 0.0 10^3/uL (0.0-0.1) 03/22/24 04:32 Nucleated RBC % (auto) 0 % 03/22/24 04:32 Nucleated RBCs # 0.0 /100WBC 03/22/24 04:32 PT 15.50 SECONDS (12.1-14.9) H 03/16/24 02:59 INR 1.15 (0.8-1.2) 03/16/24 02:59 APTT 28.3 SECONDS (23.9-36.7) 03/15/24 09:54 D-Dimer 0.67 ug/mLFEU (0-0.59) H 03/17/24 18:59 Sodium 141 mmol/L (136-145) 03/22/24 04:32 Potassium 3.5 mmol/L (3.5-5.1) 03/22/24 04:32 Chloride 103 mmol/L (98-107) 03/22/24 04:32 Carbon Dioxide 28 mmol/L (22-29) 03/22/24 04:32 Anion Gap 13.5 (5-19) 03/22/24 04:32 BUN 13 mg/dL (8-23) 03/22/24 04:32 Creatinine 0.5 mg/dL (0.7-1.2) L 03/22/24 04:32 GFR Calculation Not Reportable 03/22/24 04:32 Glucose 173 mg/dL (65-115) H 03/22/24 04:32 POC Glucose 169 mg/dL (70-110) H 03/18/24 23:25 Estimat Average Glucose 123 03/15/24 09:54 Hemoglobin A1c 5.9 % (4.0-6.0) 03/15/24 09:54 Calculated Osmolality 296 mOsm/kg (285-295) H 03/22/24 04:32 Calcium 8.5 mg/dL (8.5-10.5) 03/22/24 04:32 Magnesium 2.0 mg/dL (1.7-2.3) 03/16/24 02:59 Iron 37 ug/dL (59-158) L 03/17/24 04:20 TIBC 230 mcg/dl 03/17/24 04:20 % Saturation 16.0 % (20-50) L 03/17/24 04:20 Unsat Iron Binding 193 ug/dL (112-347) 03/17/24 04:20 Total Bilirubin 0.7 mg/dL (0.15-1.2) 03/22/24 04:32 AST 83 U/L (0-40) H 03/22/24 04:32 ALT 101 U/L (0-41) H 03/22/24 04:32 Alkaline Phosphatase 82 U/L (40-130) 03/22/24 04:32 NT-Pro-B Natriuret Pep 102 pg/mL (0-450) 03/15/24 09:54 Total Protein 6.0 g/dL (6.6-8.7) L 03/22/24 04:32 Albumin 3.0 g/dL (3.5-5.2) L 03/22/24 04:32 Globulin 3.0 g/dL (1.3-4.6) 03/22/24 04:32 Vitamin B12 348 pg/mL (232-1245) 03/17/24 04:20 Folate 16.6 ng/mL (4.5-32.2) 03/18/24 05:35 Procalcitonin 0.14 ng/mL (0-0.5) 03/17/24 04:20 TSH 2.04 uIU/mL (0.27-4.20) 03/15/24 09:54 Urine Color Yellow (Yellow) 03/15/24 14:59 Urine Appearance Clear (CLEAR) 03/15/24 14:59 Urine pH 7.0 (5-7) 03/15/24 14:59 Ur Specific [place] 1.022 (1.005-1.030) 03/15/24 14:59 Urine Protein Trace (Negative) A 03/15/24 14:59 Urine Glucose (UA) 3+ (Normal) H 03/15/24 14:59 Urine Ketones Negative (Negative) 03/15/24 14:59 Urine Blood Negative (Negative) 03/15/24 14:59 Urine Nitrate Negative (Negative) 03/15/24 14:59 Urine Bilirubin Negative (Negative) 03/15/24 14:59 Urine Urobilinogen 0.2 mg/dL (Negative) 03/15/24 14:59 Ur Leukocyte Esterase Negative (Negative) 03/15/24 14:59 Urine RBC 0-2 /hpf (0-2) 03/15/24 14:59 Urine WBC 0-5 /hpf (0-5) 03/15/24 14:59 Ur Squamous Epith Cells 0-5 /hpf (0-5) 03/15/24 14:59 Urine Bacteria None seen /hpf (NONE) 03/15/24 14:59 Hyaline Casts 0.40 /lpf 03/15/24 14:59 Coronavirus (PCR) Negative (Negative) 03/15/24 10:45 Influenza A (PCR) Negative (Negative) 03/15/24 10:45 Influenza Type B (PCR) Negative (Negative) 03/15/24 10:45 RSV (PCR) Negative (Negative) 03/15/24 10:45 Blood Type O Positive 03/16/24 17:23 Rho(D) Type Rh positive 03/16/24 17:23 Antibody Screen Negative 03/16/24 17:23 Vitals Last Vital Signs Temp 97.6 F 03/25/24 07:53 Pulse 74 03/25/24 09:03 Resp 18 03/25/24 09:03 BP 138/77 03/25/24 09:12 Pulse Ox 94 03/25/24 09:03 O2 Del Method Nasal Cannula 03/25/24 09:03 O2 Flow Rate 2 02/11/25 09:03 Discharge Plan Discharge Patient Disposition: Xfer SNF Condition: Stable Prescriptions: New Eliquis 5 mg tablet 5 mg PO BID Qty: 60 3RF thiamine mononitrate (vit B1) [Vitamin B-1 (mononitrate)] 100 mg Tablet 100 mg PO DAILY Qty: 30 0RF ondansetron 4 mg tablet,disintegrating 4 mg PO Q8H PRN (Reason: nausea and vomiting) 5 Days Qty: 15 0RF Continued fluticasone propionate [Flonase Allergy Relief] 50 mcg/actuation spray,suspension 1 spray INTRANASAL DAILY@07 omeprazole 40 mg capsule,delayed release(DR/EC) 40 mg PO DAILY@07 polyethylene glycol 3350 [Miralax] 17 gram/dose powder 17 gm PO EVERY OTHER DAY Rx Instructions: hold for loose stools irbesartan 300 mg tablet 300 mg PO DAILY@07 Januvia 100 mg tablet 100 mg PO DAILY@07 metformin 500 mg tablet extended release 24 hr 500 mg PO BID@07,17 rosuvastatin [Crestor] 40 mg tablet 40 mg PO BEDTIME@20 acetaminophen [Tylenol Extra Strength] 500 mg tablet 500 - 1,000 mg PO Q6H PRN (Reason: Pain) magnesium hydroxide [Milk of Magnesia] 400 mg/5 mL suspension See Rx Instructions .ROUTE .COMPLEX Rx Instructions: 30ml po every 48 hours if no bm as needed Jardiance 25 mg tablet 25 mg PO DAILY@07 buspirone 15 mg tablet See Rx Instructions .ROUTE .COMPLEX Qty: 90 2RF Dose Instruction: TAKE ONE TABLET BY MOUTH THREE TIMES DAILY AT 7am, 12 NOON, AND 5pm Rx Instructions: TAKE ONE TABLET BY MOUTH THREE TIMES DAILY AT 7am, 12 NOON, AND 5pm sertraline 100 mg tablet 200 mg PO DAILY@07 Qty: 60 2RF trazodone 100 mg tablet See Rx Instructions .ROUTE .COMPLEX Qty: 30 2RF Dose Instruction: TAKE ONE TABLET BY MOUTH AT BEDTIME AT 8pm Rx Instructions: TAKE ONE TABLET BY MOUTH AT BEDTIME AT 8pm Aricept 10 mg tablet 10 mg PO BEDTIME@20 Qty: 30 2RF benztropine 1 mg tablet See Rx Instructions .ROUTE .COMPLEX Qty: 60 2RF Dose Instruction: TAKE ONE TABLET BY MOUTH TWICE DAILY AT 7am AND 7pm Rx Instructions: TAKE ONE TABLET BY MOUTH TWICE DAILY AT 7am AND 7pm cetirizine 10 mg Tablet 10 mg PO BEDTIME@20 tramadol [Ultram] 50 mg Tablet 50 mg PO TID@,,20 amlodipine 10 mg tablet 10 mg PO DAILY@07 Cough Drops 2.7 mg Lozenge See Rx Instructions .ROUTE .COMPLEX Rx Instructions: may have at bedside Ozempic 0.25 mg or 0.5 mg (2 mg/3 mL) pen injector 0.5 mg SUBCUT Q7D Rx Instructions: on fridays vitamin A and D [A and D] Ointment See Rx Instructions .ROUTE .COMPLEX Rx Instructions: apply topically to feet and legs daily ferrous sulfate 325 mg (65 mg iron) Tablet 325 mg PO DAILY fluticasone furoate-vilanterol [Breo Ellipta] 100-25 mcg/dose blister with device 1 inh INHALATION DAILY albuterol sulfate 90 mcg/actuation Hfa Aerosol Inhaler 1 puff INHALATION QID PRN (Reason: Shortness Of Breath Or Wheezing) olanzapine 15 mg tablet 15 mg PO BEDTIME Rx Instructions: TAKE ONE TABLET BY MOUTH At Bedtime AT 8 pm carvedilol [Coreg] 25 mg tablet 25 mg PO BID@ Qty: 60 0RF Discontinued celecoxib [Celebrex] 200 mg capsule 200 mg PO BID@,20 Discharge Orders: Discharge Order (Routine); Ordered 03/26/24 Ordered By: Bj Smiley Referrals: John Phillips DO [Physician] - 04/09/24 1:30 pm (2wks) Discharge Diet: Regular Discharge Activity: Limit activity as instructed and Use walker/crutches as instructed Patient Instructions: Acute Wound Care (DC), Post Anesthesia Care Activity Restrictions/Additional Instructions: Orthopedic discharge instructions: Patient may weight-bear as tolerated to the operative lower extremity Posterior hip precautions (avoid excess excessive hip flexion past 90 degrees and internal rotation) Take DVT prophylaxis (blood thinner) as prescribed ) Take pain medication as prescribed Take antinausea medication as needed Supplement with Citracal vitamin D for bone health and healing Ice as needed for pain and swelling Leave Silverlon bandage dressing on for 7 days after that may remove, rinse incision with warm soapy water/shower pat dry keep clean dry and intact and redress with a clean dry dressing. No baths or soap May supplement for pain with Tylenol [id number] as needed(1000 mg every 8 hours-do not exceed more than 3000mg in 24-hour period) Follow-up in the orthopedic office in 2 weeks from date of surgery Contact the office for any questions or concerns per (fevers, increased drainage or redness around the incision site etc.) Discharge Attestations Time Spent in Discharge Care*: greater than 30 min Quality Metrics Clinical Quality Measures [ No reported AMI, CVA or VTE this stay] Coding Level of Care Code Acute Code for Chg Fwd Diagnoses Schizoaffective disorder, bipolar type F25.0 Hypertension I10 First degree AV block I44.0 Atrial fibrillation with RVR I48.91 Diabetes mellitus E11.9 Primary osteoarthritis of right knee M17.11 Dyskinesia, tardive G24.01 Closed hip fracture S72.002A Encounter type: initial encounter Laterality: left Nicotine dependence, chewing tobacco, uncomplicated F17.220 Hypoxia R09.02
== END 2024-03-26 15:07 | disposition skilled nursing facility (03) | DRG 522 ==
LOC: ER 12:26 → MEDSURG 14:47
PROVIDERS: Student in an Organized Health Care Education/Training Program; Admitting Provider Internal Medicine; Emergency Provider Emergency Medicine; Visit Provider Internal Medicine
PROC: 0SRS0JA Replacement of Left Hip Joint, Femoral Surface with Synthetic Substitute, Uncemented, Open Approach (ICD-10-PCS; CPT 27125; principal; 2024-03-16 10:00)
DX: S72.002A Fracture of unspecified part of neck of left femur, initial encounter for closed fracture (principal); J95.89 Other postprocedural complications and disorders of respiratory system, not elsewhere classified; J98.11 Atelectasis; W19.XXXA Unspecified fall, initial encounter; Y92.099 Unspecified place in other non-institutional residence as the place of occurrence of the external cause; F25.0 Schizoaffective disorder, bipolar type; I10 Essential (primary) hypertension; I48.91 Unspecified atrial fibrillation; E11.9 Type 2 diabetes mellitus without complications; M17.11 Unilateral primary osteoarthritis, right knee; G24.01 Drug induced subacute dyskinesia; F17.220 Nicotine dependence, chewing tobacco, uncomplicated; Y83.4 Other reconstructive surgery as the cause of abnormal reaction of the patient, or of later complication, without mention of misadventure at the time of the procedure; Y92.239 Unspecified place in hospital as the place of occurrence of the external cause; R09.02 Hypoxemia; R21 Rash and other nonspecific skin eruption; R33.9 Retention of urine, unspecified; Z79.85 Long-term (current) use of injectable non-insulin antidiabetic drugs; Z79.84 Long term (current) use of oral hypoglycemic drugs
CPT/HCPCS: 36415; 36416; 51702; 70450; 71045; 71275; 72170; 73502; 73552; 80048; 80053; 81001; 82607; 82746; 82962; 83036; 83540; 83550; 83735; 83880; 84145; 84443; 85025; 85378; 85610; 85730; 86850; 86900; 87637; 93005; 93306; 94640; 94664; 96365; 96372; 96375; 97110; 97116; 97161; 97167; 97530; 97535; 99285; A7015; C1776; J0131; J0690; J1100; J1644; J1885; J2270; J2405; J2704; J2710; J3010; J3370; J3490; J7030; J7626

== ENCOUNTER → 2024-06-06 10:33 | Outpatient (BNVA) | payer MEDICARE, MEDICAID, SELFPAY | PROVIDERS: PCP Family Medicine; Visit Provider Physician Assistant | DX: Z96.642 Presence of left artificial hip joint (principal); Z98.890 Other specified postprocedural states | CPT/HCPCS: 73502; 99024 ==

== ENCOUNTER 2024-07-10 10:32 | Outpatient (CLI) | payer MEDICARE, MEDICAID, SELFPAY ==
[2024-07-10 11:26] LABS: Basophils # 0.1 10^3/uL (0.0-0.1); Basophils % 0.7 %; Eosinophils # 0.2 10^3/uL (0.0-0.8); Eosinophils % 2.5 %; Hematocrit 44.3 % (37-53); Lymphocytes # 1.9 10^3/uL (0.8-4.8); Lymphocytes % 19.2 %; Mean Corpuscular HGB Conc 32.3 g/dL (30-55); Mean Corpuscular Hemoglobin 28.8 pg (27-33); Mean Corpuscular Volume 89.1 fl (82-101); Monocytes # 0.8 10^3/uL (0.2-0.9); Monocytes % 8.3 %; Neutrophils # 6.67 10^3/uL (1.8-7.7); Nucleated Red Blood Cells % 0 %; Platelet Count 148 10^3/cmm (157-399); Red Blood Count 4.97 10^6/uL (3.85-5.65); Red Cell Distribution Width 13.9 % (12.1-15.1); White Blood Count 9.67 10^3/uL (3.29-11.43)
[2024-07-10 11:37] LABS: Anion Gap 13.9 (5-19); Blood Urea Nitrogen 14 mg/dL (8-23); Calcium 9.1 mg/dL (8.5-10.5); Carbon Dioxide 25 mmol/L (22-29); Chloride 103 mmol/L (98-107); Glucose 92 mg/dL (65-115); Osmolality Calculated 286 mOsm/kg (285-295); Potassium 3.9 mmol/L (3.5-5.1); Sodium 138 mmol/L (136-145)
== END 2024-07-10 10:33 | disposition home or self-care (01) ==
LOC: LAB 10:37
PROVIDERS: PCP Family Medicine; Visit Provider Urology
DX: I10 Essential (primary) hypertension (principal); N47.1 Phimosis; Z01.818 Encounter for other preprocedural examination
CPT/HCPCS: 36415; 80048; 85025

== ENCOUNTER → 2024-07-14 10:01 | Outpatient (BNVA) | payer MEDICARE, MEDICAID, SELFPAY | PROVIDERS: PCP Family Medicine; Visit Provider Internal Medicine | DX: Z01.818 Encounter for other preprocedural examination (principal); I10 Essential (primary) hypertension; N47.1 Phimosis | CPT/HCPCS: 93005 ==

== ENCOUNTER → 2024-09-09 10:25 | Outpatient (BNVA) | payer MEDICARE, MEDICAID, SELFPAY | PROVIDERS: PCP Family Medicine; Visit Provider Student in an Organized Health Care Education/Training Program | DX: Z96.642 Presence of left artificial hip joint (principal) | CPT/HCPCS: 73502; 99213 ==

== ENCOUNTER → 2024-11-18 13:59 | Outpatient (BNVA) | payer MEDICARE, MEDICAID, SELFPAY | PROVIDERS: PCP Family Medicine; Visit Provider Student in an Organized Health Care Education/Training Program | DX: M25.561 Pain in right knee (principal); M25.562 Pain in left knee; M17.0 Bilateral primary osteoarthritis of knee | CPT/HCPCS: 73560; 73565 ==

== ENCOUNTER 2024-11-18 15:11 | Outpatient (CLI) | payer MEDICARE, MEDICAID, SELFPAY | END 2024-11-18 15:12 | disposition home or self-care (01) | LOC: SPT 15:11 | PROVIDERS: PCP Family Medicine; Visit Provider Student in an Organized Health Care Education/Training Program | DX: Z46.89 Encounter for fitting and adjustment of other specified devices (principal); M17.0 Bilateral primary osteoarthritis of knee | CPT/HCPCS: L1851 ==

== ENCOUNTER → 2024-12-16 08:27 | Outpatient (BNVA) | payer MEDICARE, MEDICAID, SELFPAY | PROVIDERS: PCP Family Medicine; Visit Provider Physician Assistant | DX: M17.0 Bilateral primary osteoarthritis of knee (principal) | CPT/HCPCS: 20610; 99213; J7318 ==